=== PATIENT | male | born 1940 | race Caucasian/White ===

== ENCOUNTER 2016-09-11 | Outpatient (CLI) | payer MEDICARE | END 2016-09-11 18:14 | disposition EMS.NT ==

== ENCOUNTER 2016-09-12 | Outpatient (CLI) | payer MEDICARE | END 2016-09-12 11:18 | disposition EMS.NT | DX: Z03.89 Encounter for observation for other suspected diseases and conditions ruled out (principal) ==

== ENCOUNTER 2016-11-03 | Outpatient (CLI) | payer MEDICARE | END 2016-11-03 20:01 | disposition EMS.NT ==

== ENCOUNTER 2019-05-15 11:19 | Outpatient (CLI) | payer MEDICARE | END 2019-05-15 11:20 | disposition EMS.NT | LOC: EMS 11:19 | PROVIDERS: ATTEND Surgery | DX: Z03.89 Encounter for observation for other suspected diseases and conditions ruled out (principal) ==

== ENCOUNTER 2019-09-28 09:19 | Outpatient (CLI) | payer MEDICARE | END 2019-09-28 09:20 | disposition EMS.NT | LOC: EMS 09:19 | PROVIDERS: ATTEND Surgery | DX: Z03.89 Encounter for observation for other suspected diseases and conditions ruled out (principal) ==

== ENCOUNTER 2020-02-02 13:25 | Emergency (ER) | payer MEDICARE ==
--- NOTE | 2020-02-02 14:01 | ED Physician Documentation ---
PD HPI Fall - Stated complaint Stated Complaint: GLF - Chief complaint Chief Complaint: General - History obtained from History obtained from: Patient, Caregiver - History of Present Illness Mechanism of injury: Unknown Fall distance: Standing position (The patient does not really remember how he fell. He does not recall being lightheaded or having any pains but does recall ending up on the ground. He felt that he more was weak and slumped to the ground. He was found by his caregiver to be on the floor and was not sure how long he had been there. He does have history of poor memory with some dementia. He did not have any focal weaknesses. No areas of pain or tenderness. He seemed to be at his baseline dementia. The caregiver was concerned however and was also having difficulty lifting him back up. EMS was called and helped him back up and also convinced him to come in for evaluation.) Where injury occurred: Home (The patient is not sure the duration use on the ground. He stated he was getting out of bed and walking and felt weak and slumped to the floor. His caregiver found him on the floor. He has poor memory with some dementia so unclear the duration he was on the floor. He denies any focal injuries.) Timing - onset: Today Injury(ies) location: No: Head, Neck, Chest, Abdomen Associated symptoms: Weakness (generalized). No: LOC, AMS, Paresthesias Worsens with: No: Palpation Contributing factors: No: Anticoagulated, Intoxicated Similar symptoms before: Has not had sx before Review of Systems Constitutional: denies: Fever, Chills Nose: denies: Rhinorrhea / runny nose, Congestion Throat: denies: Sore throat Respiratory: denies: Cough GI: denies: Abdominal Pain, Nausea, Vomiting, Diarrhea : denies: Dysuria Skin: denies: Rash Neurologic: reports: Generalized weakness (intermittently for past few weeks; improved walking with walker.). denies: Focal weakness, Numbness, Near syncope PD PAST MEDICAL HISTORY - Past Medical History Cardiovascular: Hypertension Respiratory: None Neuro: Dementia Endocrine/Autoimmune: None - Allergies Allergies/Adverse Reactions: Allergies Allergy/AdvReac Type Severity Reaction Status Date / Time No Known Drug Allergies Allergy Verified 02/02/20 13:35 - Living Situation Living Situation: reports: With family (daughter who is primary caregiver) Living Arrangement: reports: At home - Social History Does the pt smoke?: No Does the pt drink ETOH?: No Does the pt have substance abuse?: No PD ED PE NORMAL - Vitals Vital signs reviewed: Yes - General General: Alert and oriented X 3 (but poor recall of past days), No acute distress, Well developed/nourished - HEENT HEENT: Moist mucous membranes, Pharynx benign - Neck Neck: Supple, no meningeal sign - Cardiac Cardiac: RRR, No murmur - Respiratory Respiratory: Clear bilaterally - Back Back: No CVA TTP - Derm Derm: Normal color, Warm and dry - Extremities Extremities: No tenderness to palpate, Normal ROM s pain, No calf tenderness / cord, Other (1+ edema in legs) - Neuro Neuro: Alert and oriented X 3, No motor deficit, No sensory deficit, Normal speech Results - Vitals Vitals: Vital Signs - 24 hr 02/02/20 02/02/20 13:35 16:00 Temperature 37 C Heart Rate 93 88 Respiratory 16 18 Rate Blood Pressure 141/89 H 140/102 H O2 Saturation 100 98 Oxygen O2 Source Room air - EKG (time done) 14:36 Rate: Rate (enter#) (89) Rhythm: NSR [place]: Normal Intervals: Normal [place] QRS: Normal Ischemia: Normal ST segments. No: ST elevation c/w ischemia, ST depression - Labs Labs: Laboratory Tests 02/02/20 02/02/20 02/02/20 14:45 14:45 14:45 WBC 14.0 H RBC 4.42 L Hgb 14.6 Hct 43.3 MCV 98.0 H MCH 33.0 H MCHC 33.7 RDW 13.5 Plt Count 219 MPV 9.5 Neut # (Auto) 10.9 H Lymph # (Auto) 1.7 [place] # (Auto) 1.2 H Eos # (Auto) 0.0 Baso # (Auto) 0.0 Absolute Nucleated RBC 0.00 Nucleated RBC % 0.0 Sodium 137 Potassium 4.2 Chloride 102 Carbon Dioxide 24 Anion Gap 11.0 BUN 24 H Creatinine 1.5 H Estimated GFR (MDRD) 45 L Glucose 152 H Calcium 9.1 Magnesium 2.3 Total Bilirubin 1.3 H AST 51 H ALT 52 Alkaline Phosphatase 34 L Total Creatine Kinase 75 Troponin I High Sens B-Natriuretic Peptide 29 Total Protein 8.0 Albumin 4.0 Globulin 4.0 Albumin/Globulin Ratio 1.0 Lipase 32 Ethyl Alcohol < 5.0 02/02/20 14:45 WBC RBC Hgb Hct MCV MCH MCHC RDW Plt Count MPV Neut # (Auto) Lymph # (Auto) [place] # (Auto) Eos # (Auto) Baso # (Auto) Absolute Nucleated RBC Nucleated RBC % Sodium Potassium Chloride Carbon Dioxide Anion Gap BUN Creatinine Estimated GFR (MDRD) Glucose Calcium Magnesium Total Bilirubin AST ALT Alkaline Phosphatase Total Creatine Kinase Troponin I High Sens 9.2 B-Natriuretic Peptide Total Protein Albumin Globulin Albumin/Globulin Ratio Lipase Ethyl Alcohol - Rads (name of study) head CT Radiology: Prelim report reviewed, See rad report chst xray Radiology: Prelim report reviewed, See rad report Departure - Departure Disposition: 01 Home, Self Care Clinical Impression: General weakness Condition: Stable Record reviewed to determine appropriate education?: Yes Instructions: ED Weakness UKO Comments: There is no obvious significant abnormality found. Not clear the cause of his general weakness. Be sure to have good nutrition and adequate hydration. Continue usual medications.
--- NOTE | 2020-02-02 14:51 | XRAY Report ---
Reason: chest pain Procedure Date: 02/02/2020 Accession Number: [id number] / [id number] Procedure: XR - Chest 1 View X-Ray CPT Code: 32750 Final Report FULL RESULT: PROCEDURE: Chest 1 View X-Ray INDICATIONS: chest pain TECHNIQUE: One view of the chest was acquired. COMPARISON: None FINDINGS: Surgical changes and devices: A catheter projects over the right chest, possibly representing a SWIMMING INSTRUCTOR shunt catheter. Lungs and pleura: No pleural effusions or pneumothorax. Lungs are clear. Mediastinum: Mediastinal contours appear normal. Heart size is normal. Bones and chest wall: No suspicious bony lesions. Overlying soft tissues appear unremarkable. IMPRESSION: No acute process. Reviewed by: Xenia Alvarado MD on 02/02/2020 2:46 PM PDT Approved by: Xenia Alvarado MD on 02/02/2020 2:46 PM PDT Station ID: [id number]
[2020-02-02 14:52] LABS: BASOPHILS % (AUTO) 0.2 %; EOSINOPHILS % (AUTO) 0.1 %; HGB - HEMOGLOBIN 14.6 g/dL (14.0-18.0); LYMPHOCYTES # (AUTO) 1.7 10^3/uL (1.5-3.5); LYMPHOCYTES % (AUTO) 12.4 %; MEAN CORPUSCULAR HGB CONC 33.7 g/dL (32.0-36.0); MEAN PLATELET VOLUME 9.5 fL (7.4-11.4); MONOCYTES # (AUTO) 1.2 10^3/uL (0.0-1.0); MONOCYTES % (AUTO) 8.7 %; NEUTROPHILS # (AUTO) 10.9 10^3/uL (1.5-6.6); NEUTROPHILS % (AUTO) 77.9 %; PLT - PLATELET COUNT 219 10^3/uL (130-450); RED BLOOD COUNT 4.42 10^6/uL (4.70-6.10); RED CELL DISTRIBUTION WIDTH 13.5 % (12.0-15.0)
[2020-02-02 15:05] LABS: ALKALINE PHOSPHATASE 34 IU/L (42-121); ALT ALANINE AMINOTRANSFERASE 52 IU/L (10-60); AST ASPARTATE AMINOTRANSFERASE 51 IU/L (10-42); BILIRUBIN,TOTAL 1.3 mg/dL (0.2-1.0); BUN - BLOOD UREA NITROGEN 24 mg/dL (6-20); CALCIUM 9.1 mg/dL (8.5-10.3); CARBON DIOXIDE - CO2 24 mmol/L (21-32); CHLORIDE 102 mmol/L (101-111); CK- CREATINE KINASE 75 IU/L (22-269); CREATININE 1.5 mg/dL (0.6-1.2); GLUCOSE 152 mg/dL (70-100); LIPASE 32 U/L (22-51); MAGNESIUM 2.3 mg/dL (1.7-2.8); SODIUM 137 mmol/L (135-145)
--- NOTE | 2020-02-02 15:21 | CT Report ---
Reason: fall with unknown LOC Procedure Date: 02/02/2020 Accession Number: [id number] / [id number] Procedure: CT - HEAD WO CPT Code: Final Report FULL RESULT: PROCEDURE: HEAD WO INDICATIONS: fall with unknown LOC TECHNIQUE: Noncontrast 4.5 mm thick angled axial sections acquired from the foramen magnum to the vertex. For radiation dose reduction, the following was used: automated exposure control, adjustment of mA and/or kV according to patient size. COMPARISON: None. FINDINGS: Image quality: Excellent. CSF spaces: Basal cisterns are patent. No extra-axial fluid collections. Ventricles are mildly prominent in size and shape, symmetric, in this patient with a ventriculostomy catheter extending from the posterior right parietal region to the anterior midline on the right, within the medial border of the frontal horn of the right lateral ventricle.. Brain: No midline shift. No intracranial masses or hemorrhage. Sanchez-white matter interface is abnormal over the frontal lobes bilaterally, and extending posteriorly into the parietal lobes, in a pattern suggestive of potential for prior traumatic brain injury. No recent trauma is found involving the brain parenchyma. Skull and face: Calvarium and visualized facial bones are intact, without suspicious lesions. Sinuses: Visualized sinuses and mastoids are clear. IMPRESSION: Ventriculostomy catheter from right-sided approach extends in normal position, without evidence of hydrocephalus or intracranial hemorrhage. There is encephalomalacia involving the frontal lobes bilaterally and extending tapering posteriorly into the parietal lobes bilaterally, symmetric, in a pattern most likely to represent prior traumatic brain injury but also potentially a manifestation of prior anoxic injury. No acute disease is found. Reviewed by: Biju Okeefe MD on 02/02/2020 3:17 PM PDT Approved by: Biju Okeefe MD on 02/02/2020 3:17 PM PDT Station ID: [id number]
[2020-02-02 17:06] LABS: BILIRUBIN,URINE NEGATIVE (NEGATIVE); GLUCOSE, URINE (UA) NEGATIVE (NEGATIVE); KETONES,URINE (UA) NEGATIVE (NEGATIVE); LEUKOCYTE ESTERASE, URINE NEGATIVE (NEGATIVE); NITRITE,URINE NEGATIVE (NEGATIVE); OCCULT BLOOD,URINE TRACE-INTA (NEGATIVE); PH,URINE 5.5 PH (5.0-7.5); PROTEIN,URINE NEGATIVE (NEGATIVE); UROBILINOGEN,URINE 0.2 (NORMAL) E.U./dL (NORMAL)
[2020-02-02 17:08] LABS: CLARITY,URINE CLEAR (CLEAR)
[2020-02-02 17:18] VITALS: BP 137/61
== END 2020-02-02 17:28 | disposition home or self-care (01) ==
LOC: ED 13:25
DX: R53.1 Weakness (principal); Z91.81 History of falling; I10 Essential (primary) hypertension; F03.90 Unspecified dementia, unspecified severity, without behavioral disturbance, psychotic disturbance, mood disturbance, and anxiety
CPT/HCPCS: 36415; 51701; 70450; 71045; 80053; 80320; 81001; 81003; 82550; 83690; 83735; 83880; 84484; 85025; 87086; 93005; 99284

== ENCOUNTER 2020-07-29 13:18 | Outpatient (CLI) | payer MEDICARE, OTHER | END 2020-07-29 13:19 | disposition short-term general hospital (02) | LOC: EMS 13:18 | PROVIDERS: ATTEND Surgery | DX: R53.1 Weakness (principal); R63.0 Anorexia | CPT/HCPCS: A0425; A0429 ==

== ENCOUNTER 2020-12-01 17:18 | Outpatient (CLI) | payer MEDICARE, OTHER ==
--- OUTSIDE RECORDS SUMMARY | 2020-12-08 00:48 | EXTERNAL MEDICAL SUMMARY RPT | Continuity of Care Document ---
:1940 Demographics Phone Unavailable Preferred Language Unknown Marital Status Unknown Amish Affiliation Unknown Race Unknown Ethnic Group Unknown Author Organization [facility] Address [address] [id number] Phone Social History date description facility [phone]
== END 2020-12-01 17:19 | disposition critical access hospital (66) ==
LOC: EMS 17:18
PROVIDERS: ATTEND Emergency Medicine
DX: R41.0 Disorientation, unspecified (principal)
CPT/HCPCS: A0425; A0429

== ENCOUNTER 2020-12-01 17:46 | Emergency (ER) | payer MEDICARE, OTHER ==
--- NOTE | 2020-12-01 18:34 | ED Physician Documentation ---
PD HPI MALE - Stated complaint Stated Complaint: MALE - Chief complaint Chief Complaint: UTI - History obtained from History obtained from: Patient - Additional information Additional information: Reportedly has foul-smelling urine and worse than normal mental status. No reported fevers. History is limited because of dementia. Review of Systems Unable to obtain: Confused, Dementia PD PAST MEDICAL HISTORY - Past Medical History Past Medical History: Yes Cardiovascular: Hypertension Respiratory: None Neuro: Dementia Endocrine/Autoimmune: None : None HEENT: None Psych: None Musculoskeletal: None Derm: None - Past Surgical History Past Surgical History: No - Allergies Allergies/Adverse Reactions: Allergies Allergy/AdvReac Type Severity Reaction Status Date / Time No Known Drug Allergies Allergy Verified 02/02/20 13:35 - Social History Does the pt smoke?: No Smoking Status: Never smoker Does the pt drink ETOH?: No Does the pt have substance abuse?: No - Immunizations Immunizations are current?: Yes - POLST Patient has POLST: No PD ED PE NORMAL - Vitals Vital signs reviewed: Yes - General General: Other (Is alert and oriented to person and knows he is in the hospital but not why. Does not know his age or the date.) - HEENT HEENT: PERRL, EOMI - Neck Neck: Supple, no meningeal sign, No bony TTP - Cardiac Cardiac: RRR, No murmur - Respiratory Respiratory: No respiratory distress, Clear bilaterally - Abdomen Abdomen: Soft, Non tender - Derm Derm: Normal color, Warm and dry - Extremities Extremities: No edema, No calf tenderness / cord - Neuro Neuro: No motor deficit, No sensory deficit Results - Vitals Vitals: Vital Signs - 24 hr 12/01/20 17:52 Temperature 36.8 C Heart Rate 92 Respiratory 17 Rate Blood Pressure 152/84 H O2 Saturation 99 Oxygen O2 Source Room air - Labs Labs: Laboratory Tests 12/01/20 12/01/20 12/01/20 18:34 18:34 18:34 WBC 8.4 RBC 4.43 L Hgb 14.3 Hct 43.2 MCV 97.5 H MCH 32.3 H MCHC 33.1 RDW 13.9 Plt Count 221 MPV 9.8 Neut # (Auto) 6.0 Lymph # (Auto) 1.7 [place] # (Auto) 0.5 Eos # (Auto) 0.1 Baso # (Auto) 0.0 Absolute Nucleated RBC 0.00 Nucleated RBC % 0.0 Sodium 140 Potassium 4.2 Chloride 103 Carbon Dioxide 28 Anion Gap 9.0 BUN 22 H Creatinine 1.3 H Estimated GFR (MDRD) 53 L Glucose 151 H Lactic Acid 1.6 Calcium 9.7 Total Bilirubin 0.8 AST 32 ALT 28 Alkaline Phosphatase 40 L Total Protein 7.2 Albumin 3.7 Globulin 3.5 Albumin/Globulin Ratio 1.1 Urine Color Urine Clarity Urine pH Ur Specific [place] Urine Protein Urine Glucose (UA) Urine Ketones Urine Occult Blood Urine Nitrite Urine Bilirubin Urine Urobilinogen Ur Leukocyte Esterase Urine RBC Urine WBC Ur Squamous Epith Cells Urine Bacteria Ur Microscopic Review Urine Culture Comments 12/01/20 20:53 WBC RBC Hgb Hct MCV MCH MCHC RDW Plt Count MPV Neut # (Auto) Lymph # (Auto) [place] # (Auto) Eos # (Auto) Baso # (Auto) Absolute Nucleated RBC Nucleated RBC % Sodium Potassium Chloride Carbon Dioxide Anion Gap BUN Creatinine Estimated GFR (MDRD) Glucose Lactic Acid Calcium Total Bilirubin AST ALT Alkaline Phosphatase Total Protein Albumin Globulin Albumin/Globulin Ratio Urine Color YELLOW Urine Clarity CLEAR Urine pH 6.0 Ur Specific [place] 1.015 Urine Protein NEGATIVE Urine Glucose (UA) NEGATIVE Urine Ketones NEGATIVE Urine Occult Blood NEGATIVE Urine Nitrite NEGATIVE Urine Bilirubin NEGATIVE Urine Urobilinogen 0.2 (NORMAL) Ur Leukocyte Esterase TRACE H Urine RBC 0-5 Urine WBC 0-3 Ur Squamous Epith Cells FEW Squamous Urine Bacteria None Seen Ur Microscopic Review INDICATED Urine Culture Comments INDICATED PD MEDICAL DECISION MAKING - ED course ED course: 80-year-old gentleman presents with worse than normal mental status. He is cooperative here without focal neurologic deficit. There is a specific concern for UTI. Urinalysis positive only for trace leukocyte esterase and this is not consistent with UTI especially with a lack of other specific symptoms for same. I spoke with his daughter by phone and she feels comfortable picking him up and taking him home. Departure - Departure Disposition: 01 Home, Self Care Clinical Impression: General weakness Instructions: ED Dementia Alzheimer, ED Dementia Caregiver Support Comments: No evidence of UTI today., Blood work is unremarkable as well. Return if worsening or if he runs a fever. Encourage oral fluid intake.
[2020-12-01 18:44] LABS: BASOPHILS % (AUTO) 0.1 %; EOSINOPHILS # (AUTO) 0.1 10^3/uL (0.0-0.7); EOSINOPHILS % (AUTO) 0.8 %; HCT - HEMATOCRIT 43.2 % (42.0-52.0); HGB - HEMOGLOBIN 14.3 g/dL (14.0-18.0); LYMPHOCYTES # (AUTO) 1.7 10^3/uL (1.5-3.5); LYMPHOCYTES % (AUTO) 20.3 %; MEAN CORPUSCULAR HEMOGLOBIN 32.3 pg (27.0-31.0); MEAN CORPUSCULAR HGB CONC 33.1 g/dL (32.0-36.0); MEAN CORPUSCULAR VOLUME 97.5 fL (80.0-94.0); MEAN PLATELET VOLUME 9.8 fL (7.4-11.4); MONOCYTES # (AUTO) 0.5 10^3/uL (0.0-1.0); MONOCYTES % (AUTO) 6.4 %; PLT - PLATELET COUNT 221 10^3/uL (130-450); RED BLOOD COUNT 4.43 10^6/uL (4.70-6.10); RED CELL DISTRIBUTION WIDTH 13.9 % (12.0-15.0); WHITE BLOOD COUNT 8.4 x10^3/uL (4.8-10.8)
[2020-12-01 18:51] LABS: ALBUMIN 3.7 g/dL (3.2-5.5); ALBUMIN/GLOBULIN RATIO 1.1 (1.0-2.2); BILIRUBIN,TOTAL 0.8 mg/dL (0.2-1.0); CALCIUM 9.7 mg/dL (8.5-10.3); CREATININE 1.3 mg/dL (0.6-1.2); POTASSIUM 4.2 mmol/L (3.5-5.0); TOTAL PROTEIN 7.2 g/dL (6.7-8.2)
[2020-12-01 21:27] LABS: BILIRUBIN,URINE NEGATIVE (NEGATIVE); GLUCOSE, URINE (UA) NEGATIVE (NEGATIVE); KETONES,URINE (UA) NEGATIVE (NEGATIVE); LEUKOCYTE ESTERASE, URINE TRACE (NEGATIVE); NITRITE,URINE NEGATIVE (NEGATIVE); OCCULT BLOOD,URINE NEGATIVE (NEGATIVE); PROTEIN,URINE NEGATIVE (NEGATIVE); UROBILINOGEN,URINE 0.2 (NORMAL) E.U./dL (NORMAL)
[2020-12-01 21:29] LABS: CLARITY,URINE CLEAR (CLEAR)
[2020-12-01 21:34] LABS: RBC,URINE 0-5 /HPF (0-5); SQUAMOUS EPITHELIAL CELL,UR FEW Squamous (<= Few); WBC,URINE 0-3 /HPF (0-3)
[2020-12-01 21:35] LABS: BACTERIA,URINE None Seen /HPF (None Seen)
[2020-12-01 22:37] VITALS: BP 148/80
--- OUTSIDE RECORDS SUMMARY | 2020-12-08 00:14 | EXTERNAL MEDICAL SUMMARY RPT | Continuity of Care Document ---
:1940 Demographics Phone Unavailable Preferred Language Unknown Marital Status Unknown Judaism Affiliation Unknown Race Unknown Ethnic Group Unknown Author Organization [facility] Address [address] [id number] Phone Social History date description facility [phone]
== END 2020-12-01 22:37 | disposition home or self-care (01) ==
LOC: EDUNIT# → EDBD → ED 17:46 → SUPCPDRO 17:46 → ED 22:37
DX: R53.1 Weakness (principal); F03.90 Unspecified dementia, unspecified severity, without behavioral disturbance, psychotic disturbance, mood disturbance, and anxiety; R82.998 Other abnormal findings in urine; I10 Essential (primary) hypertension
CPT/HCPCS: 36415; 51701; 80053; 81001; 81003; 83605; 85025; 87086; 99282; 99283

== ENCOUNTER 2021-01-03 22:19 | Outpatient (CLI) | payer MEDICARE, OTHER | END 2021-01-03 22:20 | disposition critical access hospital (66) | LOC: EMS 22:19 | DX: R53.1 Weakness (principal); R46.4 Slowness and poor responsiveness | CPT/HCPCS: A0425; A0429 ==

== ENCOUNTER 2021-01-03 22:43 | Emergency (ER) | payer MEDICARE, OTHER ==
[2021-01-03] MEDS ORDERED: SODIUM CHLORIDE 0.9% 1,000 ML IV STA ×2 (22:59→23:55)
--- NOTE | 2021-01-03 23:02 | ED Physician Documentation ---
PD HPI ALTERED MENTAL STATUS - Stated complaint Stated Complaint: LETHARGIC - Chief complaint Chief Complaint: Neuro - History obtained from History obtained from: Patient, Family, EMS - History of Present Illness Timing - onset: Today Timing - duration: Days (1) Timing - details: Gradual onset (daughter, who is his caregiver, noted him to be sleepier and somewhat more confused than usual today. Called EMS. He seems alert to EMS and on arrival here. He denies any pains, fevers, nausea.), Waxing and waning Associated symptoms: NVD (reported less appetite the past few days, per EMS.), Urinary sx (daughter says his urine had strong odor.). 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 Similar symptoms before: Diagnosis (per EMS, patient has had similar with infections/UTIs.) Recently seen: Not recently seen Review of Systems Unable to obtain: Dementia, Other Constitutional: denies: Fever Nose: denies: Rhinorrhea / runny nose, Congestion Throat: denies: Sore throat Cardiac: denies: Chest pain / pressure, Pedal edema Respiratory: denies: Cough GI: denies: Abdominal Pain, Vomiting, Diarrhea Neurologic: denies: Focal weakness, Numbness, Syncope, Headache PD PAST MEDICAL HISTORY - Past Medical History Cardiovascular: Hypertension Respiratory: None Neuro: Dementia Endocrine/Autoimmune: None : None HEENT: None Psych: None Musculoskeletal: None Derm: None - Past Surgical History Past Surgical History: No - Present Medications Home Medications: Ambulatory Orders Medication Instructions Recorded Confirmed Atorvastatin Calcium 40 mg PO DAILY 01/04/21 01/04/21 - Allergies Allergies/Adverse Reactions: Allergies Allergy/AdvReac Type Severity Reaction Status Date / Time No Known Drug Allergies Allergy Verified 01/03/21 23:00 - Social History Does the pt smoke?: No Smoking Status: Never smoker Does the pt drink ETOH?: No Does the pt have substance abuse?: No - Immunizations Immunizations are current?: Yes - POLST Patient has POLST: No PD ED PE NORMAL - Vitals Vital signs reviewed: Yes - General General: No acute distress, Well developed/nourished. No: Alert and oriented X 3 (oriented to person, , and place. does not know month/time of year.) - HEENT HEENT: Atraumatic (no tenderness. Has palpable ventriculostomy drain tube with reservoir right parietal, with easily compressed reservoid that refills promptly. ), Pharynx benign - Neck Neck: Supple, no meningeal sign, No adenopathy, No JVD - Cardiac Cardiac: RRR, No murmur - Respiratory Respiratory: Clear bilaterally - Abdomen Abdomen: Normal bowel sounds, Soft, Non tender, Non distended - Back Back: No CVA TTP - Derm Derm: Normal color, Warm and dry - Extremities Extremities: No edema, No calf tenderness / cord - Neuro Neuro: No motor deficit, No sensory deficit, Normal speech Eye Opening: Spontaneous Motor: Obeys Commands Verbal: Oriented (to person and place.) GCS Score: 15 Results - Vitals Vitals: Vital Signs - 24 hr 01/03/21 01/04/21 01/04/21 22:50 01:00 02:39 Temperature 36.4 C L 37.0 C Heart Rate 90 87 91 Respiratory 20 18 16 Rate Blood Pressure 97/64 139/91 H 129/64 O2 Saturation 95 98 100 Oxygen O2 Source Room air - Labs Labs: Laboratory Tests 01/03/21 01/03/21 01/03/21 23:18 23:24 23:24 WBC 10.4 RBC 4.75 Hgb 15.3 Hct 46.2 MCV 97.3 H MCH 32.2 H MCHC 33.1 RDW 14.3 Plt Count 246 MPV 9.9 Neut # (Auto) 7.9 H Lymph # (Auto) 1.8 [place] # (Auto) 0.6 Eos # (Auto) 0.1 Baso # (Auto) 0.0 Absolute Nucleated RBC 0.00 Nucleated RBC % 0.0 VBG pH VBG pCO2 VBG pO2 VBG HCO3 VBG Total CO2 VBG O2 Saturation VBG Base Excess Sodium 139 Potassium 4.2 Chloride 103 Carbon Dioxide 24 Anion Gap 12.0 BUN 17 Creatinine 1.4 H Estimated GFR (MDRD) 49 L Glucose 175 H Lactic Acid Calcium 9.3 Magnesium 2.5 Total Bilirubin 1.1 H AST 34 ALT 27 Alkaline Phosphatase 39 L Troponin I High Sens Total Protein 7.7 Albumin 4.1 Globulin 3.6 Albumin/Globulin Ratio 1.1 Lipase 31 Urine Color YELLOW Urine Clarity CLEAR Urine pH 5.5 Ur Specific [place] 1.015 Urine Protein NEGATIVE Urine Glucose (UA) NEGATIVE Urine Ketones NEGATIVE Urine Occult Blood TRACE-INTA Urine Nitrite NEGATIVE Urine Bilirubin NEGATIVE Urine Urobilinogen 0.2 (NORMAL) Ur Leukocyte Esterase NEGATIVE Ur Microscopic Review NOT INDICATED Urine Culture Comments NOT INDICATED 01/03/21 01/03/21 01/04/21 23:24 23:24 00:09 WBC RBC Hgb Hct MCV MCH MCHC RDW Plt Count MPV Neut # (Auto) Lymph # (Auto) [place] # (Auto) Eos # (Auto) Baso # (Auto) Absolute Nucleated RBC Nucleated RBC % VBG pH 7.308 L VBG pCO2 42.2 VBG pO2 41.5 VBG HCO3 20.7 L VBG Total CO2 22.0 L VBG O2 Saturation 75.7 VBG Base Excess -5.4 L Sodium Potassium Chloride Carbon Dioxide Anion Gap BUN Creatinine Estimated GFR (MDRD) Glucose Lactic Acid 4.9 H* Calcium Magnesium Total Bilirubin AST ALT Alkaline Phosphatase Troponin I High Sens 10.1 Total Protein Albumin Globulin Albumin/Globulin Ratio Lipase Urine Color Urine Clarity Urine pH Ur Specific [place] Urine Protein Urine Glucose (UA) Urine Ketones Urine Occult Blood Urine Nitrite Urine Bilirubin Urine Urobilinogen Ur Leukocyte Esterase Ur Microscopic Review Urine Culture Comments 01/04/21 01:15 WBC RBC Hgb Hct MCV MCH MCHC RDW Plt Count MPV Neut # (Auto) Lymph # (Auto) [place] # (Auto) Eos # (Auto) Baso # (Auto) Absolute Nucleated RBC Nucleated RBC % VBG pH VBG pCO2 VBG pO2 VBG HCO3 VBG Total CO2 VBG O2 Saturation VBG Base Excess Sodium Potassium Chloride Carbon Dioxide Anion Gap BUN Creatinine Estimated GFR (MDRD) Glucose Lactic Acid 2.0 Calcium Magnesium Total Bilirubin AST ALT Alkaline Phosphatase Troponin I High Sens Total Protein Albumin Globulin Albumin/Globulin Ratio Lipase Urine Color Urine Clarity Urine pH Ur Specific [place] Urine Protein Urine Glucose (UA) Urine Ketones Urine Occult Blood Urine Nitrite Urine Bilirubin Urine Urobilinogen Ur Leukocyte Esterase Ur Microscopic Review Urine Culture Comments - Rads (name of study) head CT Radiology: Prelim report reviewed (no acute process. 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 Encephalomalacia noted. ), See rad report PD MEDICAL DECISION MAKING - ED course Complexity details: considered differential (he aplears well here without acute abnormality, signs of infection. Initial Lactate elevated and BP softly low, but improved with IV fluids, suggesting dehydration with less PO intake recently. No apparent infections. ), d/w patient Departure - Departure Disposition: 01 Home, Self Care Clinical Impression: Dehydration Altered mental status Qualifiers: Altered mental status type: transient alteration of awareness Qualified C ode(s): R40.4 - Transient alteration of awareness Condition: Stable Record reviewed to determine appropriate education?: Yes Comments: Testing of the urine and blood count chest x-ray and head scan did not show any acute obvious process. He did seem perhaps dehydrated and was given IV fluids. Otherwise he appears okay here without any acute obvious process. Stay well-hydrated. Follow-up with your primary care or return to the ER as needed. Discharge Date/Time: 01/04/21 03:30
[2021-01-03 23:24] LABS: BILIRUBIN,URINE NEGATIVE (NEGATIVE); CLARITY,URINE CLEAR (CLEAR); GLUCOSE, URINE (UA) NEGATIVE (NEGATIVE); KETONES,URINE (UA) NEGATIVE (NEGATIVE); LEUKOCYTE ESTERASE, URINE NEGATIVE (NEGATIVE); NITRITE,URINE NEGATIVE (NEGATIVE); OCCULT BLOOD,URINE TRACE-INTA (NEGATIVE); PH,URINE 5.5 PH (5.0-7.5); PROTEIN,URINE NEGATIVE (NEGATIVE); UROBILINOGEN,URINE 0.2 (NORMAL) E.U./dL (NORMAL)
[2021-01-03 23:28] LABS: BASOPHILS % (AUTO) 0.1 %; EOSINOPHILS # (AUTO) 0.1 10^3/uL (0.0-0.7); EOSINOPHILS % (AUTO) 0.8 %; HCT - HEMATOCRIT 46.2 % (42.0-52.0); HGB - HEMOGLOBIN 15.3 g/dL (14.0-18.0); LYMPHOCYTES # (AUTO) 1.8 10^3/uL (1.5-3.5); MEAN CORPUSCULAR HEMOGLOBIN 32.2 pg (27.0-31.0); MEAN CORPUSCULAR HGB CONC 33.1 g/dL (32.0-36.0); MEAN CORPUSCULAR VOLUME 97.3 fL (80.0-94.0); MEAN PLATELET VOLUME 9.9 fL (7.4-11.4); MONOCYTES # (AUTO) 0.6 10^3/uL (0.0-1.0); MONOCYTES % (AUTO) 5.4 %; NEUTROPHILS # (AUTO) 7.9 10^3/uL (1.5-6.6); NEUTROPHILS % (AUTO) 76.3 %; PLT - PLATELET COUNT 246 10^3/uL (130-450); RED BLOOD COUNT 4.75 10^6/uL (4.70-6.10); RED CELL DISTRIBUTION WIDTH 14.3 % (12.0-15.0); WHITE BLOOD COUNT 10.4 x10^3/uL (4.8-10.8)
[2021-01-03 23:41] LABS: ALBUMIN 4.1 g/dL (3.2-5.5); ALBUMIN/GLOBULIN RATIO 1.1 (1.0-2.2); BILIRUBIN,TOTAL 1.1 mg/dL (0.2-1.0); CALCIUM 9.3 mg/dL (8.5-10.3); CREATININE 1.4 mg/dL (0.6-1.2); MAGNESIUM 2.5 mg/dL (1.7-2.8); POTASSIUM 4.2 mmol/L (3.5-5.0); TOTAL PROTEIN 7.7 g/dL (6.7-8.2)
[2021-01-04 00:26] LABS: VBG BASE EXCESS -5.4 mmol/L (-2 - +2); VBG HCO3 20.7 mmol/L (23-28); VBG OXYGEN SATURATION 75.7 % (60-80); VBG PCO2 42.2 mmHg (41-51); VBG PH 7.308 (7.31-7.41); VBG PO2 41.5 mmHg (25-47)
[2021-01-04 02:40] VITALS: BP 129/64
--- NOTE | 2021-01-04 07:04 | CT Report ---
PROCEDURE: HEAD WO INDICATIONS: reported lethargic by daughter; h/o shunt TECHNIQUE: Noncontrast 4.5 mm thick angled axial sections acquired from the foramen magnum to the vertex. For r adiation dose reduction, the following was used: automated exposure control, adjustment of mA and/or kV according to patient size. COMPARISON: 09/2019 FINDINGS: Image quality: Excellent. CSF spaces: Basal cisterns are patent. No extra-axial fluid collections. The ventricles are symmet joselito in size and shape. Brain: Ventriculostomy tube which projects to the anterior horn of the right lateral ventricle via r ight parietal approach is stable compared to prior exam. No intracranial bleeds or masses. There is mild to moderate cerebral volume loss for age, with resultant ventricular and sulcal prominence. The re are severe periventricular and deep white matter chronic small vessel ischemic changes. There is intracranial internal carotid artery atherosclerosis. Skull and face: Frontal nelly holes are stable. The Visualized facial bones appear intact, without bolivar picious lesions. Sinuses: Visualized sinuses and mastoids are clear. IMPRESSION: No acute intracranial disease process. Reviewed by: Lakshmi Thorpe MD, PhD on 01/04/2021 7:03 AM PDT Approved by: Lakshmi Thorpe MD, PhD on 01/04/2021 7:03 AM PDT Station ID: [id number]
--- NOTE | 2021-01-04 10:04 | XRAY Report ---
PROCEDURE: Chest 1 View X-Ray INDICATIONS: decreased alertness today TECHNIQUE: One view of the chest was acquired. COMPARISON: Chest x-ray 02/02/2020 FINDINGS: Surgical changes and devices: Tubing is noted overlying the right neck and hemithorax which appears i ntact and most suggestive of ventriculoperitoneal shunt. Lungs and pleura: No pleural effusions or pneumothorax. Lungs are clear. Mediastinum: Mediastinal contours appear normal. Heart size is normal. Bones and chest wall: No suspicious bony lesions. Overlying soft tissues appear unremarkable. IMPRESSION: No acute pulmonary process. The above findings are concordant with preliminary report. Reviewed by: Geneva Lim MD on 01/04/2021 10:03 AM PDT Approved by: Geneva Lim MD on 01/04/2021 10:03 AM PDT Station ID: [id number]
== END 2021-01-04 03:30 | disposition home or self-care (01) ==
LOC: EDUNIT# → ED 22:43
DX: E86.0 Dehydration (principal); R40.4 Transient alteration of awareness; F03.90 Unspecified dementia, unspecified severity, without behavioral disturbance, psychotic disturbance, mood disturbance, and anxiety; I10 Essential (primary) hypertension; Z96.89 Presence of other specified functional implants
CPT/HCPCS: 36415; 80053; 81001; 81003; 82803; 83605; 83690; 83735; 84484; 85025; 87086; 93005; 96360; 96361; 99284

== ENCOUNTER 2021-06-28 14:26 | Outpatient (CLI) | payer MEDICARE, OTHER | END 2021-06-28 14:27 | disposition critical access hospital (66) | LOC: EMS 14:26 | DX: K59.00 Constipation, unspecified (principal) | CPT/HCPCS: A0425; A0429 ==

== ENCOUNTER 2021-06-28 15:00 | Inpatient (IN) | payer MEDICARE, OTHER ==
--- NOTE | 2021-06-28 15:06 | ED Physician Documentation ---
PD HPI ABD PAIN - Stated complaint Stated Complaint: CONSTIPATION - History obtained from History obtained from: Patient, EMS - Additional information Additional information: 80-year-old gentleman presents from home with report of 3 days of no bowel movements. He is demented so history is limited.. Patient is unsure why he became constipated. States he has not taken a laxative. Not sure of the validity of that. Now the report about over the last 12 hours being unable to urinate. Patient denies abdominal or rectal pain. Review of Systems Unable to obtain: Dementia PD PAST MEDICAL HISTORY - Past Medical History Cardiovascular: Hypertension Respiratory: None Neuro: Dementia Endocrine/Autoimmune: None : None HEENT: None Psych: None Musculoskeletal: None Derm: None - Past Surgical History Past Surgical History: No - Present Medications Home Medications: Ambulatory Orders Medication Instructions Recorded Confirmed Atorvastatin [Lipitor] 40 mg PO DAILY 06/28/21 06/28/21 - Allergies Allergies/Adverse Reactions: Allergies Allergy/AdvReac Type Severity Reaction Status Date / Time No Known Drug Allergies Allergy Verified 06/28/21 15:08 - Social History Does the pt smoke?: No Smoking Status: Never smoker Does the pt drink ETOH?: No Does the pt have substance abuse?: No - Immunizations Immunizations are current?: Yes - POLST Patient has POLST: No PD ED PE NORMAL - Vitals Vital signs reviewed: Yes - General General: No acute distress, Other (He is oriented to person and place but not time or events) - HEENT HEENT: PERRL, EOMI - Neck Neck: Supple, no meningeal sign, No bony TTP - Cardiac Cardiac: No murmur (Frequent extrasystoles) - Respiratory Respiratory: No respiratory distress, Clear bilaterally - Abdomen Abdomen: Other (Distended nontender abdomen) - Rectal Rectal: Other (No fecal impaction) - Back Back: No CVA TTP, No spinal TTP - Derm Derm: Normal color, Warm and dry - Extremities Extremities: No edema, No calf tenderness / cord - Neuro Motor: Obeys Commands Verbal: Confused - Psych Psych: Normal mood, Normal affect Results - Vitals Vitals: Vital Signs - 24 hr 06/28/21 06/28/21 06/28/21 15:05 15:07 17:55 Temperature 36.5 C Heart Rate 105 H 104 H 107 H Respiratory 15 20 Rate Blood Pressure 111/63 163/88 H O2 Saturation 94 97 10/26/21 10/26/21 19:00 19:32 Temperature 36.9 C Heart Rate 88 Respiratory 15 16 Rate Blood Pressure 162/88 H O2 Saturation 94 Oxygen O2 Source Room air - EKG (time done) 1507 Rate: Rate (enter#) (94) Rhythm: NSR (Sinus rhythm with frequent PACs) [place]: Normal Intervals: Normal [place] QRS: Normal Ischemia: Normal ST segments - Labs Labs: Laboratory Tests 06/28/21 06/28/21 06/28/21 15:36 15:36 15:47 WBC 13.6 H RBC 4.18 L Hgb 13.8 L Hct 40.9 L MCV 97.8 H MCH 33.0 H MCHC 33.7 RDW 14.1 Plt Count 262 MPV 9.4 Neut # (Auto) 10.2 H Lymph # (Auto) 2.1 [place] # (Auto) 1.2 H Eos # (Auto) 0.0 Baso # (Auto) 0.0 Absolute Nucleated RBC 0.00 Nucleated RBC % 0.0 Sodium 134 L Potassium 3.6 Chloride 98 L Carbon Dioxide 23 Anion Gap 13.0 BUN 25 H Creatinine 1.0 Estimated GFR (MDRD) 72 L Glucose 164 H Calcium 9.1 Total Bilirubin 1.2 H AST 34 ALT 25 Alkaline Phosphatase 30 L Total Protein 7.4 Albumin 3.8 Globulin 3.6 Albumin/Globulin Ratio 1.1 Lipase 40 Urine Color YELLOW Urine Clarity CLEAR Urine pH 5.5 Ur Specific [place] >=1.030 H Urine Protein TRACE Urine Glucose (UA) NEGATIVE Urine Ketones NEGATIVE Urine Occult Blood NEGATIVE Urine Nitrite NEGATIVE Urine Bilirubin NEGATIVE Urine Urobilinogen 0.2 (NORMAL) Ur Leukocyte Esterase NEGATIVE Ur Microscopic Review NOT INDICATED Urine Culture Comments NOT INDICATED PD MEDICAL DECISION MAKING - ED course ED course: 80-year-old demented gentleman presents by ambulance for abdominal distention, constipation, and urinary retention. Initial most suspected differential would be fecal impaction but none was present on exam. He was quite distended as well and went over for CT showing a high-grade bowel obstruction related to a sigmoid volvulus, with concern for underlying neoplasm. I discussed the findings with the daughter by phone who felt like despite his severe dementia, his quality of life was still good and she would want him to have surgery and he would want to have surgery she thinks if there was potential for cure. Case discussed by phone with Dr. June Randle at 5:50 PM who will come and see the patient. Departure - Departure Disposition: ED Transfer to [facility] Clinical Impression: Volvulus of colon, Intestinal obstruction Condition: Serious
[2021-06-28] MEDS ORDERED: IOVERSOL 320 100 ML VIAL IVP ONE ×2 (15:42→19:29)
[2021-06-28 15:50] LABS: BASOPHILS % (AUTO) 0.1 %; EOSINOPHILS % (AUTO) 0.1 %; HCT - HEMATOCRIT 40.9 % (42.0-52.0); HGB - HEMOGLOBIN 13.8 g/dL (14.0-18.0); LYMPHOCYTES # (AUTO) 2.1 10^3/uL (1.5-3.5); LYMPHOCYTES % (AUTO) 15.4 %; MEAN CORPUSCULAR HGB CONC 33.7 g/dL (32.0-36.0); MEAN CORPUSCULAR VOLUME 97.8 fL (80.0-94.0); MEAN PLATELET VOLUME 9.4 fL (7.4-11.4); MONOCYTES # (AUTO) 1.2 10^3/uL (0.0-1.0); MONOCYTES % (AUTO) 8.7 %; NEUTROPHILS # (AUTO) 10.2 10^3/uL (1.5-6.6); NEUTROPHILS % (AUTO) 75.2 %; PLT - PLATELET COUNT 262 10^3/uL (130-450); RED BLOOD COUNT 4.18 10^6/uL (4.70-6.10); RED CELL DISTRIBUTION WIDTH 14.1 % (12.0-15.0); WHITE BLOOD COUNT 13.6 x10^3/uL (4.8-10.8)
[2021-06-28 16:04] LABS: ALBUMIN 3.8 g/dL (3.2-5.5); ALBUMIN/GLOBULIN RATIO 1.1 (1.0-2.2); BILIRUBIN,TOTAL 1.2 mg/dL (0.2-1.0); CALCIUM 9.1 mg/dL (8.5-10.3); POTASSIUM 3.6 mmol/L (3.5-5.0); TOTAL PROTEIN 7.4 g/dL (6.7-8.2)
[2021-06-28 16:10] LABS: BILIRUBIN,URINE NEGATIVE (NEGATIVE); CLARITY,URINE CLEAR (CLEAR); GLUCOSE, URINE (UA) NEGATIVE (NEGATIVE); KETONES,URINE (UA) NEGATIVE (NEGATIVE); LEUKOCYTE ESTERASE, URINE NEGATIVE (NEGATIVE); NITRITE,URINE NEGATIVE (NEGATIVE); OCCULT BLOOD,URINE NEGATIVE (NEGATIVE); PH,URINE 5.5 PH (5.0-7.5); PROTEIN,URINE TRACE mg/dL (NEGATIVE); UROBILINOGEN,URINE 0.2 (NORMAL) E.U./dL (NORMAL)
--- NOTE | 2021-06-28 17:51 | CT Report ---
PROCEDURE: Abdomen/Pelvis W INDICATIONS: IV only, abd pain CONTRAST: IV CONTRAST: Optiray 320 ml: 100 PO CONTRAST: *NO PO CONTRAST TECHNIQUE: After the administration of intravenous contrast, 5 mm thick sections acquired from the diaphragms to the symphysis. 5 mm thick coronal and sagittal reformats were acquired. For radiation dose reducti on, the following was used: automated exposure control, adjustment of mA and/or kV according to josué ent size. COMPARISON: None. FINDINGS: Image quality: Excellent. ABDOMEN: Lung bases: Atelectasis in the dependent portion of the lung bases. Heart size is normal. After stati c desiccation of the visualized coronary vasculature. Solid organs: Liver and spleen are normal in size and enhancement. Gallbladder is within normal espinal its Biliary system is non dilated. Pancreas enhances normally. No adrenal nodules. Kidneys demons trate normal size and enhancement, without hydronephrosis. Peritoneum and bowel: There is gaseous dilatation of the colon. Colon is dilated up to 12.4 cm. Trans ition point in the mid sigmoid colon where there is a swirled appearance of the mesentery and bowel c ompatible with sigmoid volvulus. Sequential wall thickening noted in the sigmoid colon distal to the point of volvulus which could be due to edema or neoplastic process. Stranding and nodularity noted i n the mesentery adjacent to the sigmoid colon at the level of cervical vertebral thickening which cou ld represent edema or neoplastic spread. No free fluid or air. Peritoneal shunt catheter noted in th e abdomen and pelvis. Nodes and vessels: No retroperitoneal or mesenteric adenopathy by size criteria. Aorta and inferior vena cava are normal in size. Scattered atherosclerotic calcifications are noted in the abdominal an d pelvic vasculature. Miscellaneous: No ventral hernias. PELVIS: Genitourinary: Bladder decompressed by Bañuelos catheter. Miscellaneous: No inguinal hernias or adenopathy. Bones: No suspicious bony lesions. No vertebral body compression fractures. IMPRESSION: 1. High-grade large bowel obstruction with transition point sigmoid colon. Fracture appears to be sec ondary to sigmoid volvulus. 2. Segmental wall thickening involving the sigmoid colon immediately distal to the point of volvulus which could represent edema or neoplastic process. 3. Stranding and nodularity in the mesentery adjacent to the sigmoid colon at the level of cerclage w all thickening which could represent edema or focal neoplastic spread. 4. No free peritoneal air. Findings discussed with Dr. Santos on 06/28 2021 at 1745 hours. Reviewed by: Lakshmi Thorpe MD, PhD on 06/28/2021 5:50 PM PDT Approved by: Lakshmi Thorpe MD, PhD on 06/28/2021 5:50 PM PDT Station ID: [id number]
--- NOTE | 2021-06-28 18:43 | HISTORY & PHYSICAL EXAMINATION ---
HPI - Admitted From Admitted from: ED - History Obtained From History obtained from: Other (Other provider) Exam limitations: Other (Patient mental status) - History of Present Illness HPI Comment/Other: Patient presented to the emergency room complaining of about 3 days of constipation and about 12 hours of inability to urinate. He specifically denied any abdominal pain. He was seen and evaluated by Dr. Handley and eventually had a CT scan of the abdomen and pelvis that revealed a sigmoid volvulus with a hig h-grade obstruction. Dr. Handley spoke with his daughter per telephone and she indicated that she felt her father had a high quality of life and desires that he would have surgical correction of this problem.Alan seems to have some dementia is not able to tell me much more about his symptoms.Here in the emergency room, he is not complaining of any nausea or vomiting.Here in the emergency room, he is not complaining of any nausea or vomiting.Here in the emergency room, he is not complaining of any nausea or vomiting.Here in the emergency room, he is not complaining of any nausea or vomiting. PMH/PSH - Past Medical History Cardiovascular: positive: Hypertension Respiratory: positive: None Neuro: positive: Dementia Endocrine/Autoimmune: positive: None : positive: None HEENT: positive: None Psych: positive: None Musculoskeletal: positive: None Derm: positive: None Social & Family Hx - Social History Does the pt smoke?: No Smoking Status: Never smoker Does the pt drink ETOH?: No Does the pt have substance abuse?: No - POLST Patient has POLST: No Meds/Allgy - Home Medications Home Medications: Ambulatory Orders Medication Instructions Recorded Confirmed Atorvastatin Calcium 40 mg PO DAILY 01/04/21 01/04/21 - Allergies Allergies/Adverse Reactions: Allergies Allergy/AdvReac Type Severity Reaction Status Date / Time No Known Drug Allergies Allergy Verified 06/28/21 15:08 Review of Systems - Other Findings Other Findings: Unable to obtain a review reliable review of systems due to patient's mental status. Exam - Vital Signs Reviewed Vital Signs: Yes Vital Signs: Vital Signs x48h Temp Pulse Resp BP Pulse Ox 06/28/21 17:55 107 H 20 163/88 H 97 06/28/21 15:07 104 H 06/28/21 15:05 36.5 C 105 H 15 111/63 94 - Physical Exam General Appearance: positive: No acute distress, Alert Eyes Bilateral: positive: Normal inspection, PERRL, EOMI ENT: positive: ENT inspection nml Neck: positive: Nml inspection Respiratory: positive: Chest non-tender, No respiratory distress, Breath sounds nml Cardiovascular: positive: Regular rate & rhythm, Tachycardia Peripheral Pulses: positive: 0 Abdomen: positive: Tenderness, Other (Distended). negative: Rebound Extremities: positive: Non-tender Neurologic/Psychiatric: positive: Disoriented to place, Disoriented to time Results - Lab Results Fish Bones: 06/28/21 15:36 06/28/21 15:36 Other Lab Results: Lab Results x24hrs 06/28/21 06/28/21 06/28/21 Range/Units 15:47 15:36 15:36 WBC 13.6 H (4.8-10.8) x10^3/uL RBC 4.18 L (4.70-6.10) 10^6/uL Hgb 13.8 L (14.0-18.0) g/dL Hct 40.9 L (42.0-52.0) % MCV 97.8 H (80.0-94.0) fL MCH 33.0 H (27.0-31.0) pg MCHC 33.7 (32.0-36.0) g/dL RDW 14.1 (12.0-15.0) % Plt Count 262 (130-450) 10^3/uL MPV 9.4 (7.4-11.4) fL Neut # (Auto) 10.2 H (1.5-6.6) 10^3/uL Lymph # (Auto) 2.1 (1.5-3.5) 10^3/uL [place] # (Auto) 1.2 H (0.0-1.0) 10^3/uL Eos # (Auto) 0.0 (0.0-0.7) 10^3/uL Baso # (Auto) 0.0 (0.0-0.1) 10^3/uL Absolute Nucleated RBC 0.00 x10^3/uL Nucleated RBC % 0.0 /100WBC Sodium 134 L (135-145) mmol/L Potassium 3.6 (3.5-5.0) mmol/L Chloride 98 L (101-111) mmol/L Carbon Dioxide 23 (21-32) mmol/L Anion Gap 13.0 (6-13) BUN 25 H (6-20) mg/dL Creatinine 1.0 (0.6-1.2) mg/dL Estimated GFR (MDRD) 72 L (>89) Glucose 164 H (70-100) mg/dL Calcium 9.1 (8.5-10.3) mg/dL Total Bilirubin 1.2 H (0.2-1.0) mg/dL AST 34 (10-42) IU/L ALT 25 (10-60) IU/L Alkaline Phosphatase 30 L (42-121) IU/L Total Protein 7.4 (6.7-8.2) g/dL Albumin 3.8 (3.2-5.5) g/dL Globulin 3.6 (2.1-4.2) g/dL Albumin/Globulin Ratio 1.1 (1.0-2.2) Lipase 40 (22-51) U/L Urine Color YELLOW Urine Clarity CLEAR (CLEAR) Urine pH 5.5 (5.0-7.5) PH Ur Specific [place] >=1.030 H (1.002-1.030) Urine Protein TRACE (NEGATIVE) mg/dL Urine Glucose (UA) NEGATIVE (NEGATIVE) mg/dL Urine Ketones NEGATIVE (NEGATIVE) mg/dL Urine Occult Blood NEGATIVE (NEGATIVE) Urine Nitrite NEGATIVE (NEGATIVE) Urine Bilirubin NEGATIVE (NEGATIVE) Urine Urobilinogen 0.2 (NORMAL) (NORMAL) E.U./dL Ur Leukocyte Esterase NEGATIVE (NEGATIVE) Ur Microscopic Review NOT INDICATED Urine Culture Comments NOT INDICATED - Diagnostic Imaging Results Diagnostic Imaging Results Comments: Consistent with sigmoid volvulus with the colon dilated up to 12.5 cm causing high-grade obstruction. Impression/Plan - Problem List Problem List: The patient's daughter arrived here and I was able to speak with her regarding his care. He lives with her and she is his primary caregiver. She said that she has noticed over the last several days that he has been getting progressively weaker and then complained that he had pain in his butt.She is also the caregiver for her grandchildren and so she has been quite busy.When he told her she had pain in his but she asked if he was constipated and he said yes so she began giving him cathartics. That is when she noted the big mass in his abdomen and brought him to the emergency room.She understands that this is a risky operation as he is quite weak. The risks include but are not limited to infection, bleeding, stroke, heart attack, unexpected findings or results, and additional procedures to be needed in the future.I have recommended laparotomy with colostomy and sigmoid colectomy.He will be admitted following the procedure for continued care and ostomy training.
[2021-06-28] MEDS ORDERED: BUPIVACAINE 0.5% PF 10 ML VIAL ONE (19:48)
[2021-06-28] MEDS ORDERED: LIDOCAINE 2%-EPI 1:100000 20 ML MDV ONE (19:48)
[2021-06-28] MEDS ORDERED: LIDOCAINE-MPF 2% 5 ML VIAL ONE (19:49)
[2021-06-28] MEDS ORDERED: PROPOFOL 200 MG/20 ML VIAL IVP ONE (19:49)
[2021-06-28] MEDS ORDERED: fentaNYL 100 MCG/2 ML VIAL ONE (19:50)
--- NOTE | 2021-06-28 19:53 | ANESTHESIA ---
Pre-Anesthesia VS, & Labs - Diagnosis bowel obstruction - Procedure bowel resection with possible colostomy Vital Signs: Temp Pulse Resp BP Pulse Ox 36.9 C 88 16 162/88 H 94 06/28/21 19:00 06/28/21 19:00 06/28/21 19:32 06/28/21 19:00 06/28/21 19:00 Height: 6 ft Weight (kg): 68.039 kg Body Mass Index: 20.3 BMI Classification: Healthy weight - NPO >8 hours - Lab Results Current Lab Results: Laboratory Tests 06/28/21 15:36: Sodium 134 L, Potassium 3.6, Chloride 98 L, Carbon Dioxide 23, Anion Gap 13.0, BUN 25 H, Creatinine 1.0, Estimated GFR (MDRD) 72 L, Glucose 164 H, Calcium 9.1, Total Bilirubin 1.2 H, AST 34, ALT 25, Alkaline Phosphatase 30 L , Total Protein 7.4, Albumin 3.8, Globulin 3.6, Albumin/Globulin Ratio 1.1, Lipase 40 06/28/21 15:36: WBC 13.6 H, RBC 4.18 L, Hgb 13.8 L, Hct 40.9 L, MCV 97.8 H, MCH 33.0 H, MCHC 33.7, RDW 14.1, Plt Count 262, MPV 9.4, Neut # (Auto) 10.2 H, Lymph # (Auto) 2.1, [place] # (Auto) 1.2 H, Eos # (Auto) 0.0, Baso # (Auto) 0.0, Absolute Nucleated RBC 0.00, Nucleated RBC % 0.0 Fish Bones: 06/28/21 15:36 06/28/21 15:36 Home Medications and Allergies Home Medications: Ambulatory Orders Atorvastatin [Lipitor] 40 mg PO DAILY 06/28/21 Atorvastatin [Lipitor] 40 mg PO DAILY 06/28/21 Allergies/Adverse Reactions: Allergies Allergy/AdvReac Type Severity Reaction Status Date / Time No Known Drug Allergies Allergy Verified 06/28/21 15:08 Anes History & Medical History - Anesthetic History Anesthesia Complications: reports: No previous complications Family history of Anesthesia Complications: Denies Family history of Malignant Hyperthermia: Denies - Medical History Cardiovascular: reports: Hypertension, Other (hx of Bilateral CEA) Pulmonary: reports: None Urinary: reports: None Neuro: reports: Dementia, Other (Hx of SAH with shunt) Musculoskeletal: reports: None Endocrine/Autoimmune: reports: None Blood Disorders: reports: None Skin: reports: None Smoking Status: Never smoker Exam General: Alert, Cooperative, Other (dementia) Dental: Poor dentition (missing multiple teeth and poor dentition throughout) Mouth Openin Fingerbreadth Neck Mobility: Normal Mallampati classification: II Respiratory: Lungs clear Cardiovascular: Regular rate Plan Anesthesia Type: General, Transverse Abdominis Plane (TAP) Block Regional Block: Per Surgeon's request for Post Op pain control Consent for Procedure(s) Verified and Reviewed: Yes Code Status: Attempt Resuscitation ASA classification: 3-Severe systemic disease Is this case an emergency?: Yes
[2021-06-28] MEDS ORDERED: fentaNYL 100 MCG/2 ML VIAL IVP PRN (19:55)
[2021-06-28] MEDS ORDERED: HYDROmorphone 0.5 MG/0.5 ML SYRINGE IVP PRN ×2 (19:55→22:00)
[2021-06-28] MEDS ORDERED: NALOXONE 0.4 MG/ML VIAL IVP PRN (19:55)
[2021-06-28] MEDS ORDERED: ATROPINE ABBOJECT 1 MG/10 ML SYRINGE IVP PRN (19:55)
[2021-06-28] MEDS ORDERED: MORPHINE 2 MG/ML CARPUJECT IVP PRN (19:55)
[2021-06-28] MEDS ORDERED: METOCLOPRAMIDE 10 MG/2 ML VIAL IVP PRN (19:55)
[2021-06-28] MEDS ORDERED: ONDANSETRON 4 MG/2 ML VIAL IVP PRN ×2 (19:55→22:00)
[2021-06-28] MEDS ORDERED: ePHEDrine 50 MG/ML VIAL IVP PRN (19:55)
[2021-06-28] MEDS ORDERED: LACTATED RINGERS 1,000 ML IV SCH (20:00)
[2021-06-28] MEDS ORDERED: PHENYLEPHRINE 10 MG/ML VIAL ONE (20:25)
[2021-06-28] MEDS ORDERED: ceFAZolin 1 GM VIAL ONE (20:25)
[2021-06-28] MEDS ORDERED: LIDOCAINE 2%-EPI 1:100000 20 ML MDV SUBQ ONE (20:32)
[2021-06-28] MEDS ORDERED: BUPIVACAINE 0.5% PF 10 ML VIAL IM ONE (20:33)
[2021-06-28] MEDS ORDERED: ROPIVACAINE 0.5% PF 20 ML AMPULE ONE (20:50)
[2021-06-28] MEDS ORDERED: ACETAMINOPHEN 1,000 MG/100 ML 100 ML IV ONE (20:56)
[2021-06-28] MEDS ORDERED: SUGAMMADEX 200 MG/2 ML VIAL IVP ONE (21:25)
--- NOTE | 2021-06-28 21:27 | OPERATIVE REPORT ---
Operative Report - General Procedure Date: 06/28/21 Planned Procedure: Laparotomy with bowel resection and colostomy Pre-Op Diagnosis: Sigmoid volvulus with high-grade bowel obstruction Procedure Performed: Laparotomy with sigmoid colectomy, end colostomy, and Dania's pouch. Post Op Diagnosis: Sigmoid volvulus with high-grade small bowel obstruction - Procedure Note Primary Surgeon: Razia Anesthesia Provider: CARMEL Sifuentes Anesthesia Technique: General ET tube, Local, Regional block Pathology: Sigmoid colon to pathology in formalin IV Fluids (mL): 1,500 Estimated Blood Loss (mL): 20 Findings: 1. Volvulus of the sigmoid colon at the level of the peritoneal reflection creating complete bowel obstruction. 2. Gross distention of the sigmoid colon up to 15 cm. 3. Ventriculoperitoneal shunt 4. No peritoneal contamination during the procedure Complications: None apparent - Other Other Information/Narrative: After obtaining informed consent, the patient is brought to the operating room and placed in the supine position on the operating table. Following successful induction of general endotracheal anesthesia, appropriate padding of all bony pr ominences, and placement of appropriate monitors, the abdomen was prepped and draped in the standard surgical fashion. A timeout was held per scope protocol. All elements of the surgical safety checklist were followed before, during, and after the procedure. We began the procedure by infiltrating a mixture of local anesthetics in the midline inferior to the umbilicus. An incision was created here and carried through the skin and subcutaneous tissue to reveal the peritoneum. The peritoneum was lifted off of the visible sigmoid colon below it and opened with Metzenbaum scissors. The surgeon's finger was inserted into the peritoneal cavity and used as a guide to open the peritoneum onto the incision.The sigmoid colon was identified in the left upper quadrant and gently delivered into the field. A very tight volvulus was identified at the level of the peritoneal reflection causing a complete bowel obstruction. Bowel clamps were placed across this bowel proximal and distal to the level of division. A 75 mm IAN stapling device was used to divide the bowel at this point. 3 loads in total were used to complete the division. The descending colon was then identified in the left lower quadrant and divided at an area of tissue that appeared to be well vascularized and only moderately distended.This was done by creating a window in the mesentery and dividing the bowel here with a 75 mm IAN Stapling device.The LigaSure was then used to divide the mesentery of the colon.This was done carefully and under direct vision to be sure not to injure any of the surrounding structures.The colon was then completely liberated and passed from the table.It is notable that there was no peritoneal contamination during the division of the bowel.The Gardner's pouch was oversewn with a running locking Prolene suture leaving the long tails at each end.The abdomen was then checked for hemostasis. A site was chosen for an ostomy in the left lower quadrant medial to the anterior superior iliac spine on the left. The skin in this site was grasped with a Johnny clamp and a circular disc removed sharply. The fatty tissue underneath was then removed using cautery and a cruciate incision created in the fascia. 3 of the surgeon's fingers were used to stretch the fascia and to the proximal limb of the colon was delivered through the opening without tension.The colon was then sewn to the fascia internally with 2 interrupted 3-0 silk sutures. The ventriculoperitoneal shunt was identified. A clog of fibrinous exudate was removed from the distal end and it was placed back into the peritoneal cavity.The abdomen was irrigated with 1 L of warm saline solution and aspirated free of all fluid.The peritoneum was then closed with running 3-0 Vicryl suture. The fascia was closed with running looped PDS suture. Skin clips were applied in the skin. The ostomy was then matured as follows. The midline incision was carefully covered and protected to avoid any contamination. The end of the colon was held with Allis clamps and opened using cautery. A pool sucker device was placed in the colon and air and semisolid stool aspirated.The entire stapled end of the colon was then removed sharply. The colon end was removed and a ostomy created by sewing the end of the cut colon to the dermal junction using interrupted 3-0 Vicryl sutures.An ostomy appliance was applied. A dry dressing was applied to the midline incision. All sponge, needle, and instrument counts were correct at the conclusion of the case. The patient was allowed awaken from anesthesia and taken to the surgical intensive care unit for continued recovery and supportive care.
[2021-06-28] MEDS ORDERED: LACTATED RINGERS 1,000 ML IV ONE (21:55)
[2021-06-28] MEDS ORDERED: ACETAMINOPHEN 1,000 MG/100 ML 100 ML IV PRN (22:00)
[2021-06-28] MEDS ORDERED: BENZOCAINE/TETRACAINE/BUTAMBEN 20 GM MM PRN (22:00)
[2021-06-28] MEDS ORDERED: SUCCINYLCHOLINE 200 MG/10 ML VIAL ONE (22:01)
--- NOTE | 2021-06-28 22:03 | ANESTHESIA POST OP EVALUATION ---
Anesthesia Post Eval - Post Anesthesia Eval Vitals: Last Vital Signs Temp 36.5 C 06/28/21 21:55 Pulse 77 06/28/21 21:55 Resp 18 06/28/21 21:55 BP 149/72 H 06/28/21 21:55 Pulse Ox 100 06/28/21 21:55 CV Function Including HR & BP: Stable Pain Control: Satisfactory Nausea & Vomiting: Negative Mental Status: Patient Participates Respiratory Status: Airway Patent Hydration Status: Satisfactory Anesthesia Complications: None
[2021-06-28] MEDS: SODIUM CHLORIDE 0.9% 1,000 ML IV SCH (23:07)
--- NOTE | 2021-06-28 23:32 | CONSULTATION NOTE ---
Referring Provider Name of Referring Provider:: Neva Randle MD Consult Date: 06/28/21 Chief Complaint - Chief Complaint Chief Complaint: postop afib and diabetes management History of Present Illness - Admitted From Admitted From:: home via ER - History Obtained From Records Reviewed: [facility] History obtained from: Dr. 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 He had a stroke 12 years ago which resulted in 4 craniotomies and a subsequent FLY MAKER shunt for hydrocephalus. He has lived with his daughter since. She states that he has done well. He was not the kindest of person's when he was working full-time. But time has mellowed him and she finds him to be a very "happy mark, the best". When she first started taking care of him, he needed to learn how to walk again. Feed himself again. And he did well. He walks with a walker, but occasionally has imbalance problems and falls may be 2 or 3 times a year. They call EMS to pick him up and then they leave. His appetite has been good. In the last 12 months he has deteriorated with regards to memory and she thinks he may be depressed. Her daughter, his granddaughter, accidentally overdosed in June 2020 and he has never been the same since. He has become more withdrawn, getting harder to get him to feed himself and go to the bathroom by himself. He does not want to ambulate anymore using the walker. Daughter finds that she is having to bathe him more. She has to cajole him more. She finally hired a private duty caregiver to come 5 days a week, 6 hours a day. It is made all the difference. About 3 days ago she noticed that he was more withdrawn than usual and he just did not want to get out of bed. When she would speak to him he was not any more lethargic than usual. There is no fever, chills, nausea, vomiting or lethargy. No change in bowel habits. She was asking him general questions about if anything hurt and he finally started answering yes to the question about his abdomen. She asked if he was constipated and he said yes. So she started doing a lot of things to try and get him to go to the bathroom and nothing was working and he was not eating. At no point did he describe abdominal pain. There is no fever or rigors or sweats. Then early in the morning, he just stopped urinating. He is getting more uncomfortable with this. And she brought him to the emergency room. He was evaluated by Dr. Santos where temperature was 36.5. Heart rate 105. Respirations 15. Blood pressure 111/63. O2 sat 94% on room air. He was o riented to person and place but not time or events. He had frequent ectopic beats but had a sinus rhythm. His abdomen was distended, and nontender. White cell count was 13.6. Hemoglobin 13.8. Sodium 134. BUN 25. Creatinine 1.0. Random glucose 164. Total bili 1.2. Urinalysis negative. CT of the abdomen showed a high-grade bowel obstruction related to a sigmoid volvulus with concern for underlying neoplasm. He was taken to the operating room by Dr. Randle and she found to have a volvulus that was torsed around the peritoneal reflection that had created a complete bowel obstruction. He had gross distention of the sigmoid bowel. She performed a laparotomy with a sigmoid colectomy, end colostomy and a Dania's pouch. Perioperatively he was described as having runs of atrial fibrillation. He was hypotensive and tachycardic. Once the bowel was untwisted, pulse rate and blood pressure normalized. Since being in ICU he no longer has had atrial fibrillation. Dr. Randle is asking us to consult and manage arrhythmias if they occur. Because he has dementia, I spoke to his daughter who gave me his past medical history and CODE STATUS. History - Past Medical History Cardiovascular: reports: Hypertension, High cholesterol Respiratory: reports: None Neuro: reports: Dementia, CVA (brain bleed 2008) Endocrine/Autoimmune: reports: None GI: reports: None : reports: Benign prostate hypertrophy, Retention HEENT: reports: Chronic vision loss, Chronic hearing loss Psych: reports: Anxiety Musculoskeletal: reports: Osteoarthritis Derm: reports: None MRSA Hx?: No - Past Surgical History Neuro: reports: Craniotomy (4 surgeries), FLY MAKER shunt - Family & Social History Family History Comment/Other: Dad at age 86 of liver cancer. Mom at age 92 of old age but was completely healthy. 1 sister at age 50 of a throat condition. It was not throat cancer. 1 daughter is completely healthy without diabetes, cancer, heart attack, stroke or thyroid disease Living arrangement: At home Living Situation: With family Social History Notes: He is a close to 2 pack/day smoker this started at the age of 16 with the [employer] and quit at the age of 34. He was a heavy drinker for much of his life. For the last 12 years he would go to [place] and have 1 or 2 beers twice a week. A year ago, with Covid, the daughter decided not to take him anymore. The other reason was her increased need to be caregiver. With her daughter dying, her daughter's children came to live with her and she now has custody of them. Is been more chaotic to have small children in the house as well as taking care of her father. So not going to go get a drink was one of the things that she had to give up for him. He has no history of recreational substance abuse. His in September 2006. 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 100% service-connected with the [employer]. - Substance History Use: Uses substance without health or social issues: NONE Abuse: Recurrent use of substance despite neg consequences: NONE Dependence: Experiences withdrawal or developed tolerances: NONE - POLST Patient has POLST: No POLST Status: DNR Meds/Allgy - Home Medications Home Medications: Ambulatory Orders Medication Instructions Recorded Confirmed Atorvastatin [Lipitor] 40 mg PO DAILY 06/28/21 06/28/21 - Allergies Allergies/Adverse Reactions: Allergies Allergy/AdvReac Type Severity Reaction Status Date / Time No Known Drug Allergies Allergy Verified 06/28/21 15:08 Review of Systems - Constitutional Constitutional: reports: Fatigue, Malaise, Weakness, Poor appetite. denies: Fever, Chills, Diaphoresis, Night sweats - Eyes Eyes: reports: Vision loss. denies: Pain, Irritation, Amaurosis, Blurred vision, Field loss - Ears, Nose & Throat Ears, Nose & Throat: denies: Hearing loss, Sore throat, Hoarseness - Cardiovascular Cariovascular: denies: Irregular heart rate, Palpitations, Chest pain, Edema, Exertional dyspnea, Decr. exercise tolerance - Respiratory Respiratory: denies: Cough, Sputum production, Wheezing, Snoring, Hemoptysis, Orthopnea, SOB at rest, SOB with exertion - Gastrointestinal Gastrointestinal: reports: Abdominal distention, Constipation, Change in bowel habits. denies: Abdominal pain, Diarrhea, Rectal bleeding, Black stools, Bloody stools, Nausea, Vomiting, Coffee grounds emesis, Bloating - Genitourinary Genitourinary: reports: Frequency, Urgency, Incontinence. denies: Dysuria, Hematuria, Nocturia, Urethral discharge - Musculoskeletal Musculoskeletal: reports: Stiffness, Joint pain. denies: Muscle pain, Back pain, Muscle aches, Limited range of motion, Muscle weakness, Gout - Integumentary Integumentary: denies: Rash, Pruritis, Lesions - Neurological Neurological: reports: Memory problems, Abnormal gait, Incoordination - Psychiatric Psychiatric: reports: Anxiety - Endocrine Endocrine: denies: Polyuria, Polydypsia, Polyphagia - Hematologic/Lymphatic Hematologic/Lymphatic: denies: Anemia, Bruising, Petechiae, Blood clots - All Other Systems All Other Systems: reports: Other (Due to his dementia, review of systems is obtained from his daughter) Exam - Vital Signs Reviewed Vital Signs: Yes Vital Signs: Vital Signs x48h Temp Pulse Pulse Resp BP BP Pulse Ox 06/28/21 22:45 71 18 145/81 H 96 06/28/21 22:37 36.6 C 79 18 150/85 H 96 06/28/21 22:16 36.5 C 76 20 161/66 H 96 06/28/21 22:05 36.5 C 72 20 153/68 H 100 06/28/21 21:55 36.5 C 77 18 149/72 H 100 06/28/21 21:50 36.5 C 70 19 161/76 H 100 06/28/21 21:45 36.3 C L 76 20 158/77 H 100 06/28/21 21:40 36.3 C L 78 20 158/77 H 100 06/28/21 21:21 36.5 C 80 18 152/80 H 96 06/28/21 19:32 16 06/28/21 19:00 36.9 C 88 15 162/88 H 94 06/28/21 17:55 107 H 20 163/88 H 97 - Physical Exam General Appearance: positive: No acute distress, Alert, Other (While he was alert and oriented in the ER, right now he tells me he does not know his name. And he tells me he is from [place]. I think he is joking with this but it is hard to tell because he will not break his smile. He is completely cooperative.) Eyes Bilateral: positive: PERRL, EOMI ENT: positive: No signs of dehydration Neck: positive: No JVD. negative: Stiff neck Respiratory: positive: No respiratory distress. negative: Wheezes, Rales, Rhonchi Cardiovascular: positive: Regular rate & rhythm, Systolic murmur, Other (Current telemetry is normal sinus rhythm with PACs). negative: Gallop/S4, Friction rub Peripheral Pulses: positive: 1+ Abdomen: positive: Non-tender, Abnml bowel sounds (No bowel sounds), Other (Colostomy left lower quadrant. Vertical incision hypogastric is covered in a bandage.Mildly distended. But comfortable patient. He says it does not hurt when I palpate.). negative: Guarding, Rebound Back: negative: CVA tenderness (R), CVA tenderness (L) Skin: positive: No rash, Warm, Dry. negative: Diaphoresis Extremities: positive: Non-tender, Full ROM, Nml appearance, No pedal edema Neurologic/Psychiatric: positive: CN's nml (2-12), Motor nml, Disoriented to person, Disoriented to place, Disoriented to time, Other (Multiple nelly holes located on scalp/skull). negative: Slurred/abnml speech Conclusion/Plan - Problem List (1) Intestinal obstruction Conclusion/Plan: Complete. Due to volvulus. Now resolved with ostomy and Dania's pouch in place. Postop day #0. Plan: Inpatient status Diet and pain management per general surgery Qualifiers: Intestinal obstruction type: volvulus Qualified Code(s): K56.2 - Volvulus (2) Atrial fibrillation Conclusion/Plan: Present. Only seen in the OR. Plan: Troponins Echo Telemetry Qualifiers: Atrial fibrillation type: paroxysmal Qualified Code(s): I48.0 - Paroxysmal atrial fibrillation (3) Dementia due to general medical condition without behavioral disturbance Conclusion/Plan: Daughter/POA describes him as not having any behavioral disorders. Her name is Cameron Tom. [phone]. If anything he just become more withdrawn ever since his granddaughter killed herself last June. He still has a decent appetite, he just does not want to get up and walk as much. Memory is deteriorating. Needing more prompting for bathing. She really wants him to come back home. They have the wherewithal to have private duty caregivers and she does not want him placed in a long-term facility. She is willing to let him go to a long-term facility if he needs physical rehabilitation for short time but wants him to come back home. Plan: Encourage out of bed status. He needs to get up and at least sit in a chair. Ambulate in room. (4) Diabetes mellitus Conclusion/Plan: His random glucose is elevated in the 160s. But in reviewing the electronic medical record his glucose has been elevated multiple times. None of them have been over 175.He does not carry the diagnosis of type 2 diabetes mellitus, however, on the basis of his EMR I will add that diagnosis Plan: Check A1c Sliding scale insulin to adjust depending on his p.o. intake Qualifiers: Diabetes mellitus type: type 2 Diabetes mellitus alf insulin use: without alf use Diabetes mellitus complication status: without complication Qualified Code(s): E11.9 - Type 2 diabetes mellitus without complications (5) Hypertension Conclusion/Plan: He is to have this is a diagnosis in the past. But has not taken medications for this for quite some time because his blood pressure was well controlled. In the operating room he was hypotensive and that resolved once the volvulus was decompressed. Daughter states that he can get quite anxious. Could the hypertension be from anxiety? Plan: Continue to monitor. Give as needed medication if systolic greater than 170 and diastolic greater than 95 Qualifiers: Hypertension type: primary hypertension Qualified Code(s): I10 - Essential (primary) hypertension (6) DVT prophylaxis Conclusion/Plan: lovenox and SCD (7) Do not resuscitate Conclusion/Plan: His daughter states that he has a good quality of life. She thinks if this surgery is successful he can return to that quality of life with a reasonable expectation. However if he were to have a sudden reversal of events and develop a respiratory or cardiac arrest or significant brain injury, he is to be a DO NOT RESUSCITATE. - Lab Results Lab results reviewed: Yes Fish Bones: 06/28/21 15:36 06/28/21 15:36 - Diagnostic Imaging Results Diagnostic Imaging Results: positive: Final report reviewed Diagnostic Imaging Results Comments: High-grade large bowel obstruction with transition point sigmoid colon. Appears to be secondary to sigmoid volvulus. Segmental wall thickening involving the sigmoid colon immediately distal to the point of volvulus which could represent edema or neoplastic process. Stranding and nodularity in the mesentery adjacent to the sigmoid colon at the level of cerclage wall thickening which could represent edema or focal neoplastic spread. No free peritoneal air. - EKG Results EKG Interpreted Independently: No EKG Comparison: No prior EKG
[2021-06-29] MEDS: INSULIN REGULAR HUMAN 300 UNIT/3 ML VIAL SUBQ SCH ×4 (00:25→18:53)
[2021-06-29] MEDS: ceFAZolin 2 GM in SODIUM CHLORIDE 0.9% 100ML 100 ML IV SCH ×2 (04:13→11:09)
[2021-06-29] MEDS: SODIUM CHLORIDE FLUSH 0.9% 10 ML SYRINGE IVP SCH ×3 (04:14→18:53)
[2021-06-29 04:56] LABS: BASOPHILS % (AUTO) 0.2 %; EOSINOPHILS % (AUTO) 0.2 %; HGB - HEMOGLOBIN 13.7 g/dL (14.0-18.0); LYMPHOCYTES % (AUTO) 23.3 %; MEAN CORPUSCULAR HEMOGLOBIN 33.5 pg (27.0-31.0); MEAN CORPUSCULAR HGB CONC 33.4 g/dL (32.0-36.0); MEAN CORPUSCULAR VOLUME 100.2 fL (80.0-94.0); MEAN PLATELET VOLUME 10.3 fL (7.4-11.4); MONOCYTES % (AUTO) 6.1 %; PLT - PLATELET COUNT 202 10^3/uL (130-450); RED BLOOD COUNT 4.09 10^6/uL (4.70-6.10); RED CELL DISTRIBUTION WIDTH 14.3 % (12.0-15.0); WHITE BLOOD COUNT 8.6 x10^3/uL (4.8-10.8)
[2021-06-29 05:02] LABS: ABNORMAL LYMPHS % (MANUAL) 0 %
[2021-06-29 05:06] LABS: ALBUMIN 3.4 g/dL (3.2-5.5); CALCIUM 8.6 mg/dL (8.5-10.3); POTASSIUM 4.2 mmol/L (3.5-5.0); TOTAL PROTEIN 6.8 g/dL (6.7-8.2)
[2021-06-29 06:00] LABS: BAND NEUTROPHILS % (MANUAL) 11 %; DIFFERENTIAL COMMENT MANUAL DIFFERENTIAL; LYMPHOCYTES # (MANUAL) 2.7 10^3/uL (1.5-3.5); LYMPHOCYTES % (MANUAL) 31 %; MONOCYTES # (MANUAL) 0.3 10^3/uL (0.0-1.0); NEUTROPHILS # (MANUAL) 5.6 10^3/uL (1.5-6.6); PLATELET ESTIMATE, MANUAL NORMAL (130-450,000) (NORMAL); RBC MORPHOLOGY (MULTIPLE) NORMAL APPEARANCE (NORMAL)
[2021-06-29] MEDS: PANTOPRAZOLE 40 MG VIAL IVP SCH (06:20)
--- NOTE | 2021-06-29 10:24 | PHARMACY PROGRESS NOTE ---
- Best Possible Medication History Admit Date and Time: 06/28/21 2200 Processed by: Nursing Medication History completed: Yes Med list confirmed by nursing As the person ultimately responsible for medication therapy, providers are able to order a medication from an existing home medication list in [facility] via the "Reconcile Routine" prior to Confirmation of that medication by production support manager. Such practice is discouraged except when the physician, in their clinical judgment, deems that a medical need exists for a medication without regard to previous use.
[2021-06-29] MEDS ORDERED: ceFAZolin 1 GM VIAL ONE (11:09)
[2021-06-29] MEDS: SODIUM CHLORIDE 0.9% 1,000 ML IV SCH ×2 (11:09→21:43)
--- NOTE | 2021-06-29 11:46 | PROVIDER PROGRESS NOTE ---
Assessment/Plan - Problem List (1) Intestinal obstruction Qualifiers: Intestinal obstruction type: volvulus Qualified Code(s): K56.2 - Volvulus Assessment/Plan: S/P day 1. pt has ostomy and Dania's pouch in place. Diet and pain management per general surgery. continue PT Evaluation and treatment, Encourage patient out of bed safely (2) Atrial fibrillation HR is controlled and stable. it was Only seen in the OR. Troponin is negative, ECHO is pending, continue tele monitor and vital monitor. 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 she hope d/c to home but She is willing to let him go to a alf facility if he needs physical rehabilitation for short time but wants him to come back home. (4) Diabetes mellitus He does not carry the diagnosis of type 2 diabetes mellitus in the past, Patient has no diabetic medication in his home medication list. will check A1C Check A1c, is pending Sliding scale insulin to adjust depending on his p.o. intake (5) Hypertension stable, Continue vital signs monitor (6) DVT prophylaxis lovenox and SCD (7) Do not resuscitate Per admission provider's note, His daughter states that he has a good quality of life. She thinks if this surgery is successful he can return to that quality of life with a reasonable expectation. However if he were to have a sudden reversal of events and develop a respiratory or cardiac arrest or significant brain injury, he is to be a DO NOT RESUSCITATE. - Current Meds Current Meds: Current Medications Generic Name Dose Route Start Last Admin Trade Name [place] PRN Reason Stop Dose Admin Sodium Chloride 1,000 mls @ 100 mls/hr 06/28/21 22:00 06/29/21 11:09 Normal Saline 0.9% IV 100 mls/hr .Q10H JUAQUIN Administration Cefazolin Sodium 2 gm/ Sodium 100 mls @ 200 mls/hr 06/29/21 04:00 06/29/21 11:09 Chloride IV 06/29/21 12:29 200 mls/hr Q8H JUAQUIN Administration Insulin Human Regular 1 - 5 unit 06/29/21 00:00 06/29/21 06:15 Insulin Regular Human 300 Unit/3 Ml Vial SUBQ Not Given Q6HR JUAQUIN Protocol Pantoprazole Sodium 40 mg 06/29/21 07:00 06/29/21 06:20 Pantoprazole 40 Mg Vial IVP 40 mg QDAC JUAQUIN Administration Sodium Chloride 10 ml 06/29/21 01:00 06/29/21 06:20 Sodium Chloride Flush 0.9% 10 Ml Syringe IVP 10 ml 0100,0900,1700 JUAQUIN Administration - Lab Result Fish Bone Diagrams: 06/29/21 04:32 06/29/21 04:32 - Additional Planning My Orders: My Active Orders 06/29/21 11:04 Out of bed 3+ hours today [RC] TID Subjective - Subjective Patient Reports: Feeling Better, No Complaints Objective Vital Signs: Vital Signs - 24 hr 06/28/21 06/28/21 06/28/21 15:05 15:07 17:55 Temperature 36.5 C Heart Rate 105 H 104 H 107 H Heart Rate [ Monitoring electrodes] Respiratory 15 20 Rate Blood Pressure 111/63 163/88 H Blood Pressure [Left Brachial artery] O2 Saturation 94 97 06/28/21 06/28/21 06/28/21 19:00 19:32 21:21 Temperature 36.9 C 36.5 C Heart Rate 88 80 Heart Rate [ Monitoring electrodes] Respiratory 15 16 18 Rate Blood Pressure 162/88 H 152/80 H Blood Pressure [Left Brachial artery] O2 Saturation 94 96 06/28/21 06/28/21 06/28/21 21:40 21:45 21:50 Temperature 36.3 C L 36.3 C L 36.5 C Heart Rate 78 76 70 Heart Rate [ Monitoring electrodes] Respiratory 20 20 19 Rate Blood Pressure 158/77 H 158/77 H 161/76 H Blood Pressure [Left Brachial artery] O2 Saturation 100 100 100 06/28/21 06/28/21 06/28/21 21:55 22:05 22:16 Temperature 36.5 C 36.5 C 36.5 C Heart Rate 77 72 76 Heart Rate [ Monitoring electrodes] Respiratory 18 20 20 Rate Blood Pressure 149/72 H 153/68 H 161/66 H Blood Pressure [Left Brachial artery] O2 Saturation 100 100 96 06/28/21 06/28/21 06/28/21 22:37 22:45 23:00 Temperature 36.6 C Heart Rate 80 Heart Rate [ 79 71 Monitoring electrodes] Respiratory 18 18 17 Rate Blood Pressure Blood Pressure 150/85 H 145/81 H [Left Brachial artery] O2 Saturation 96 96 06/28/21 06/28/21 06/28/21 23:01 23:05 23:10 Temperature Heart Rate 76 76 80 Heart Rate [ Monitoring electrodes] Respiratory 17 18 13 Rate Blood Pressure 140/70 H Blood Pressure [Left Brachial artery] O2 Saturation 06/28/21 06/28/21 06/28/21 23:15 23:16 23:20 Temperature Heart Rate 80 69 70 Heart Rate [ Monitoring electrodes] Respiratory 10 L 16 15 Rate Blood Pressure 132/66 H Blood Pressure [Left Brachial artery] O2 Saturation 06/28/21 06/28/21 06/28/21 23:25 23:30 23:31 Temperature 36.4 C L Heart Rate 69 76 77 Heart Rate [ 78 Monitoring electrodes] Respiratory 16 10 L 7 L Rate Blood Pressure 133/65 H Blood Pressure 133/65 H [Left Brachial artery] O2 Saturation 98 06/28/21 06/28/21 06/28/21 23:35 23:40 23:45 Temperature Heart Rate 78 83 76 Heart Rate [ Monitoring electrodes] Respiratory 14 15 16 Rate Blood Pressure Blood Pressure [Left Brachial artery] O2 Saturation 06/28/21 06/28/21 06/29/21 23:50 23:55 00:00 Temperature Heart Rate 79 76 76 Heart Rate [ Monitoring electrodes] Respiratory 15 18 15 Rate Blood Pressure Blood Pressure [Left Brachial artery] O2 Saturation 06/29/21 06/29/21 06/29/21 00:01 00:05 00:10 Temperature Heart Rate 86 77 83 Heart Rate [ 79 Monitoring electrodes] Respiratory 15 15 18 Rate Blood Pressure 134/66 H Blood Pressure 134/66 H [Left Brachial artery] O2 Saturation 98 06/29/21 06/29/21 06/29/21 00:15 00:20 00:25 Temperature Heart Rate 82 78 77 Heart Rate [ Monitoring electrodes] Respiratory 17 16 16 Rate Blood Pressure Blood Pressure [Left Brachial artery] O2 Saturation 06/29/21 06/29/21 06/29/21 00:30 00:31 00:35 Temperature Heart Rate 83 75 70 Heart Rate [ Monitoring electrodes] Respiratory 12 13 12 Rate Blood Pressure 112/57 L Blood Pressure [Left Brachial artery] O2 Saturation 06/29/21 06/29/21 06/29/21 00:40 00:45 00:50 Temperature Heart Rate 82 73 86 Heart Rate [ Monitoring electrodes] Respiratory 22 16 18 Rate Blood Pressure Blood Pressure [Left Brachial artery] O2 Saturation 06/29/21 06/29/21 06/29/21 00:55 01:00 01:01 Temperature Heart Rate 85 75 85 Heart Rate [ Monitoring electrodes] Respiratory 16 12 18 Rate Blood Pressure 103/61 Blood Pressure [Left Brachial artery] O2 Saturation 06/29/21 06/29/21 06/29/21 01:05 01:08 01:10 Temperature Heart Rate 64 77 Heart Rate [ 76 Monitoring electrodes] Respiratory 13 17 19 Rate Blood Pressure Blood Pressure 103/61 [Left Brachial artery] O2 Saturation 99 06/29/21 06/29/21 06/29/21 01:15 01:20 01:25 Temperature Heart Rate 81 66 79 Heart Rate [ Monitoring electrodes] Respiratory 18 17 19 Rate Blood Pressure Blood Pressure [Left Brachial artery] O2 Saturation 06/29/21 06/29/21 06/29/21 01:30 01:35 01:40 Temperature Heart Rate 67 72 77 Heart Rate [ Monitoring electrodes] Respiratory 19 18 19 Rate Blood Pressure Blood Pressure [Left Brachial artery] O2 Saturation 06/29/21 06/29/21 06/29/21 01:45 01:50 01:55 Temperature Heart Rate 77 77 77 Heart Rate [ Monitoring electrodes] Respiratory 18 13 17 Rate Blood Pressure Blood Pressure [Left Brachial artery] O2 Saturation 06/29/21 06/29/21 06/29/21 01:57 02:00 02:01 Temperature Heart Rate 91 82 Heart Rate [ 74 Monitoring electrodes] Respiratory 8 L 18 18 Rate Blood Pressure 92/72 Blood Pressure 92/72 [Left Brachial artery] O2 Saturation 96 06/29/21 06/29/21 06/29/21 02:05 02:10 02:15 Temperature Heart Rate 79 77 67 Heart Rate [ Monitoring electrodes] Respiratory 16 17 18 Rate Blood Pressure Blood Pressure [Left Brachial artery] O2 Saturation 06/29/21 06/29/21 06/29/21 02:20 02:25 02:30 Temperature Heart Rate 78 77 76 Heart Rate [ Monitoring electrodes] Respiratory 15 19 Rate Blood Pressure Blood Pressure [Left Brachial artery] O2 Saturation 06/29/21 06/29/21 06/29/21 02:35 02:40 02:45 Temperature Heart Rate 82 81 73 Heart Rate [ Monitoring electrodes] Respiratory 20 11 L 18 Rate Blood Pressure Blood Pressure [Left Brachial artery] O2 Saturation 06/29/21 06/29/21 06/29/21 02:50 02:55 02:59 Temperature Heart Rate 78 73 Heart Rate [ 73 Monitoring electrodes] Respiratory 15 20 21 Rate Blood Pressure Blood Pressure 110/47 L [Left Brachial artery] O2 Saturation 98 06/29/21 06/29/21 06/29/21 03:00 03:01 03:05 Temperature Heart Rate 79 82 70 Heart Rate [ Monitoring electrodes] Respiratory 15 18 19 Rate Blood Pressure 110/47 L Blood Pressure [Left Brachial artery] O2 Saturation 06/29/21 06/29/21 06/29/21 03:10 03:15 03:20 Temperature Heart Rate 79 75 75 Heart Rate [ Monitoring electrodes] Respiratory 20 20 21 Rate Blood Pressure Blood Pressure [Left Brachial artery] O2 Saturation 06/29/21 06/29/21 06/29/21 03:25 03:30 03:35 Temperature Heart Rate 86 78 70 Heart Rate [ Monitoring electrodes] Respiratory 17 19 21 Rate Blood Pressure Blood Pressure [Left Brachial artery] O2 Saturation 06/29/21 06/29/21 06/29/21 03:40 03:45 03:50 Temperature Heart Rate 80 81 70 Heart Rate [ Monitoring electrodes] Respiratory 18 15 21 Rate Blood Pressure Blood Pressure [Left Brachial artery] O2 Saturation 06/29/21 06/29/21 06/29/21 03:55 04:00 04:01 Temperature Heart Rate 70 78 79 Heart Rate [ Monitoring electrodes] Respiratory 19 13 19 Rate Blood Pressure 102/52 L Blood Pressure [Left Brachial artery] O2 Saturation 06/29/21 06/29/21 06/29/21 04:05 04:10 04:15 Temperature Heart Rate 71 87 77 Heart Rate [ Monitoring electrodes] Respiratory 20 11 L 17 Rate Blood Pressure Blood Pressure [Left Brachial artery] O2 Saturation 06/29/21 06/29/21 06/29/21 04:20 04:25 04:30 Temperature Heart Rate 94 85 80 Heart Rate [ 82 Monitoring electrodes] Respiratory 19 15 17 Rate Blood Pressure Blood Pressure 102/52 L [Left Brachial artery] O2 Saturation 96 06/29/21 06/29/21 06/29/21 04:35 04:40 04:45 Temperature Heart Rate 80 88 87 Heart Rate [ Monitoring electrodes] Respiratory 6 L 15 18 Rate Blood Pressure Blood Pressure [Left Brachial artery] O2 Saturation 1006/29/21 06/29/21 04:50 04:55 05:00 Temperature Heart Rate 83 79 83 Heart Rate [ Monitoring electrodes] Respiratory 0 L 21 20 Rate Blood Pressure Blood Pressure [Left Brachial artery] O2 Saturation 06/29/21 06/29/21 06/29/21 05:01 05:05 05:10 Temperature Heart Rate 81 83 81 Heart Rate [ Monitoring electrodes] Respiratory 21 21 21 Rate Blood Pressure 120/53 L Blood Pressure [Left Brachial artery] O2 Saturation 06/29/21 06/29/21 06/29/21 05:11 05:15 05:20 Temperature Heart Rate 80 82 Heart Rate [ 76 Monitoring electrodes] Respiratory 21 21 21 Rate Blood Pressure Blood Pressure 120/53 L [Left Brachial artery] O2 Saturation 97 06/29/21 06/29/21 06/29/21 05:25 05:30 05:35 Temperature Heart Rate 80 86 79 Heart Rate [ Monitoring electrodes] Respiratory 21 24 19 Rate Blood Pressure Blood Pressure [Left Brachial artery] O2 Saturation 06/29/21 06/29/21 06/29/21 05:40 05:45 06:00 Temperature Heart Rate 81 78 Heart Rate [ 75 Monitoring electrodes] Respiratory 21 20 21 Rate Blood Pressure Blood Pressure 139/47 H [Left Brachial artery] O2 Saturation 98 06/29/21 07:00 Temperature Heart Rate Heart Rate [ 85 Monitoring electrodes] Respiratory 22 Rate Blood Pressure Blood Pressure 112/55 L [Left Brachial artery] O2 Saturation 99 Oxygen O2 Source Room air I&O (Last 24 Hrs): Intake and Output Totals x24h 06/27/21 06/28/21 06/29/21 23:59 23:59 23:59 Intake Total 1100 Output Total 1350 765 Balance -1350 335 General: Alert, Cooperative, No acute distress HEENT: Atraumatic Neck: Supple Lymphatic: no adenopathy Neuro: Alert, Non Focal Cardiovascular: Regular rate, Normal S1, Normal S2 Respiratory: Chest non-tender, No respiratory distress Abdomen: Normal bowel sounds, Soft Extremities: Normal pulses - Results Results: Laboratory Results WBC 8.6 x10^3/uL (4.8-10.8) 06/29/21 04:32 RBC 4.09 10^6/uL (4.70-6.10) L 06/29/21 04:32 Hgb 13.7 g/dL (14.0-18.0) L 06/29/21 04:32 Hct 41.0 % (42.0-52.0) L 06/29/21 04:32 MCV 100.2 fL (80.0-94.0) H 06/29/21 04:32 MCH 33.5 pg (27.0-31.0) H 06/29/21 04:32 MCHC 33.4 g/dL (32.0-36.0) 06/29/21 04:32 RDW 14.3 % (12.0-15.0) 06/29/21 04:32 Plt Count 202 10^3/uL (130-450) 06/29/21 04:32 MPV 10.3 fL (7.4-11.4) 06/29/21 04:32 Neut # (Auto) Not Reportable 06/29/21 04:32 Lymph # (Auto) Not Reportable 06/29/21 04:32 [place] # (Auto) Not Reportable 06/29/21 04:32 Eos # (Auto) Not Reportable 06/29/21 04:32 Baso # (Auto) Not Reportable 06/29/21 04:32 Absolute Nucleated RBC Not Reportable 06/29/21 04:32 Total Counted 100 06/29/21 04:32 Band Neuts % (Manual) 11 % (0-10) H 06/29/21 04:32 Abnorm Lymph % (Manual) 0 % 06/29/21 04:32 Nucleated RBC % Not Reportable 06/29/21 04:32 Neutrophils # (Manual) 5.6 10^3/uL (1.5-6.6) 06/29/21 04:32 Lymphocytes # (Manual) 2.7 10^3/uL (1.5-3.5) 06/29/21 04:32 Monocytes # (Manual) 0.3 10^3/uL (0.0-1.0) 06/29/21 04:32 Eosinophils # (Manual) 0.0 10^3/uL (0-0.7) 06/29/21 04:32 Basophils # (Manual) 0.0 10^3/uL (0-0.1) 06/29/21 04:32 Differential Comment MANUAL DIFFERENTIAL 06/29/21 04:32 Platelet Estimate NORMAL (130-450,000) (NORMAL) 06/29/21 04:32 RBC Morph Micro Appear NORMAL APPEARANCE (NORMAL) 06/29/21 04:32 Sodium 139 mmol/L (135-145) 06/29/21 04:32 Potassium 4.2 mmol/L (3.5-5.0) 06/29/21 04:32 Chloride 102 mmol/L (101-111) 06/29/21 04:32 Carbon Dioxide 25 mmol/L (21-32) 06/29/21 04:32 Anion Gap 12.0 (6-13) 06/29/21 04:32 BUN 22 mg/dL (6-20) H 06/29/21 04:32 Creatinine 1.0 mg/dL (0.6-1.2) 06/29/21 04:32 Estimated GFR (MDRD) 72 (>89) L 06/29/21 04:32 Glucose 112 mg/dL (70-100) H 06/29/21 04:32 Calcium 8.6 mg/dL (8.5-10.3) 06/29/21 04:32 Total Bilirubin 1.0 mg/dL (0.2-1.0) 06/29/21 04:32 AST 32 IU/L (10-42) 06/29/21 04:32 ALT 20 IU/L (10-60) 06/29/21 04:32 Alkaline Phosphatase 28 IU/L (42-121) L 06/29/21 04:32 Troponin I High Sens 16.5 ng/L (2.3-19.7) 06/29/21 04:32 Total Protein 6.8 g/dL (6.7-8.2) 06/29/21 04:32 Albumin 3.4 g/dL (3.2-5.5) 06/29/21 04:32 Globulin 3.4 g/dL (2.1-4.2) 06/29/21 04:32 Albumin/Globulin Ratio 1.0 (1.0-2.2) 06/29/21 04:32 Lipase 40 U/L (22-51) 06/28/21 15:36 Urine Color YELLOW 06/28/21 15:47 Urine Clarity CLEAR (CLEAR) 06/28/21 15:47 Urine pH 5.5 PH (5.0-7.5) 06/28/21 15:47 Ur Specific [place] >=1.030 (1.002-1.030) H 06/28/21 15:47 Urine Protein TRACE mg/dL (NEGATIVE) 06/28/21 15:47 Urine Glucose (UA) NEGATIVE mg/dL (NEGATIVE) 06/28/21 15:47 Urine Ketones NEGATIVE mg/dL (NEGATIVE) 06/28/21 15:47 Urine Occult Blood NEGATIVE (NEGATIVE) 06/28/21 15:47 Urine Nitrite NEGATIVE (NEGATIVE) 06/28/21 15:47 Urine Bilirubin NEGATIVE (NEGATIVE) 06/28/21 15:47 Urine Urobilinogen 0.2 (NORMAL) E.U./dL (NORMAL) 06/28/21 15:47 Ur Leukocyte Esterase NEGATIVE (NEGATIVE) 06/28/21 15:47 Ur Microscopic Review NOT INDICATED 06/28/21 15:47 Urine Culture Comments NOT INDICATED 06/28/21 15:47 Nasal Screen MRSA (PCR) NEGATIVE (NEGATIVE) 06/28/21 22:35 ABX Reporting Has patient been on IV antibiotics over the past 48 hours?: Yes Current Medications - Current Medications Current Medications: Active Medications Benzocaine/Butamben/Tetracaine HCl (Benzocaine/Tetracaine/Butamben 20 Gm) 1 sprays MM DAILY PRN PRN Reason: Throat Pain Enoxaparin Sodium (Enoxaparin 40 Mg/0.4 Ml Syringe) 40 mg SUBQ DAILY JUAQUIN Hydromorphone HCl (Hydromorphone 0.5 Mg/0.5 Ml Syringe) 0.5 mg IVP Q2H PRN PRN Reason: PAIN Sodium Chloride (Normal Saline 0.9%) 1,000 mls @ 100 mls/hr IV .Q10H [facility] Last Admin: 06/29/21 11:09 Dose: 100 mls/hr Documented by: Cefazolin Sodium 2 gm/ Sodium (Chloride) 100 mls @ 200 mls/hr IV Q8H JUAQUIN Stop: 06/29/21 12:29 Last Admin: 06/29/21 11:09 Dose: 200 mls/hr Documented by: Acetaminophen (Ofirmev) 100 mls @ 400 mls/hr IV Q6HR PRN PRN Reason: PAIN Stop: 06/30/21 21:59 Insulin Human Regular (Insulin Regular Human 300 Unit/3 Ml Vial) 1 - 5 unit SUBQ Q6HR [facility]; Protocol Last Admin: 06/29/21 06:15 Dose: Not Given Documented by: Ondansetron HCl (Ondansetron 4 Mg/2 Ml Vial) 4 mg IVP Q6H PRN PRN Reason: Nausea / Vomiting Pantoprazole Sodium (Pantoprazole 40 Mg Vial) 40 mg IVP QDAC [facility] Last Admin: 06/29/21 06:20 Dose: 40 mg Documented by: Sodium Chloride (Sodium Chloride Flush 0.9% 10 Ml Syringe) 10 ml IVP 0100,0900,1700 [facility] Last Admin: 06/29/21 06:20 Dose: 10 ml Documented by: Sodium Chloride (Sodium Chloride Flush 0.9% 10 Ml Syringe) 10 ml IVP PRN PRN PRN Reason: NEEDED PER PROVIDER ORDERS Atorvastatin [Lipitor] 40 mg PO DAILY 06/28/21
[2021-06-29 11:56] LABS: ESTIMATED AVERAGE GLUCOSE 123 mg/dL (70-100); HEMOGLOBIN A1c% 5.9 % (4.27-6.07)
--- NOTE | 2021-06-29 12:26 | PROVIDER PROGRESS NOTE ---
Subjective - Prog Note Date Prog Note Date: 06/29/21 - Subjective Pt reports feeling: Improved (appears very well. no complaints) Objective - Vital Signs/Intake & Output Reviewed Vital Signs: Yes Vital Signs: Vital Signs x48h Pulse Pulse Resp BP BP Pulse Ox 06/29/21 07:00 85 22 112/55 L 99 06/29/21 06:00 75 21 139/47 H 98 06/29/21 05:45 78 20 06/29/21 05:40 81 21 06/29/21 05:35 79 19 06/29/21 05:30 86 24 06/29/21 05:25 80 21 06/29/21 05:20 82 21 06/29/21 05:15 80 21 06/29/21 05:11 76 21 120/53 L 97 06/29/21 05:10 81 21 06/29/21 05:05 83 21 06/29/21 05:01 81 21 120/53 L 06/29/21 05:00 83 20 06/29/21 04:55 79 21 06/29/21 04:50 83 0 L 06/29/21 04:45 87 18 06/29/21 04:40 88 15 06/29/21 04:35 80 6 L 06/29/21 04:30 80 82 17 102/52 L 96 06/29/21 04:25 85 15 Intake & Output: Intake & Output 06/26/21 06/27/21 06/28/21 06/29/21 23:59 23:59 23:59 23:59 Intake Total 1100 Output Total 1350 765 Balance -1350 335 - Objective General Appearance: positive: No acute distress, Alert Eyes Bilateral: positive: PERRL, EOMI ENT: positive: No signs of dehydration Neck: positive: No JVD Respiratory: positive: No respiratory distress Abdomen: positive: Non-tender, No distention, Other (pink stoma) Neurologic/Psychiatric: positive: Other (alert and cooperative) - Lab Results Fish Bones: 06/29/21 04:32 06/29/21 04:32 Other Labs: Lab Results x24hrs 06/29/21 06/29/21 06/29/21 Range/Units 04:32 04:32 04:32 WBC (4.8-10.8) x10^3/uL RBC (4.70-6.10) 10^6/uL Hgb (14.0-18.0) g/dL Hct (42.0-52.0) % MCV (80.0-94.0) fL MCH (27.0-31.0) pg MCHC (32.0-36.0) g/dL RDW (12.0-15.0) % Plt Count (130-450) 10^3/uL MPV (7.4-11.4) fL Neut # (Auto) (1.5-6.6) 10^3/uL Lymph # (Auto) (1.5-3.5) 10^3/uL [place] # (Auto) (0.0-1.0) 10^3/uL Eos # (Auto) (0.0-0.7) 10^3/uL Baso # (Auto) (0.0-0.1) 10^3/uL Absolute Nucleated RBC x10^3/uL Total Counted Band Neuts % (Manual) (0 - 10) % Abnorm Lymph % (Manual) % Nucleated RBC % /100WBC Neutrophils # (Manual) (1.5-6.6) 10^3/uL Lymphocytes # (Manual) (1.5-3.5) 10^3/uL Monocytes # (Manual) (0.0-1.0) 10^3/uL Eosinophils # (Manual) (0-0.7) 10^3/uL Basophils # (Manual) (0-0.1) 10^3/uL Differential Comment Platelet Estimate (NORMAL) RBC Morph Micro Appear (NORMAL) Sodium 139 (135-145) mmol/L Potassium 4.2 (3.5-5.0) mmol/L Chloride 102 (101-111) mmol/L Carbon Dioxide 25 (21-32) mmol/L Anion Gap 12.0 (6-13) BUN 22 H (6-20) mg/dL Creatinine 1.0 (0.6-1.2) mg/dL Estimated GFR (MDRD) 72 L (>89) Glucose 112 H (70-100) mg/dL Estimat Average Glucose 123 H (70-100) mg/dL Hemoglobin A1c % 5.9 (4.27-6.07) % Calcium 8.6 (8.5-10.3) mg/dL Total Bilirubin 1.0 (0.2-1.0) mg/dL AST 32 (10-42) IU/L ALT 20 (10-60) IU/L Alkaline Phosphatase 28 L (42-121) IU/L Troponin I High Sens 16.5 (2.3-19.7) ng/L Total Protein 6.8 (6.7-8.2) g/dL Albumin 3.4 (3.2-5.5) g/dL Globulin 3.4 (2.1-4.2) g/dL Albumin/Globulin Ratio 1.0 (1.0-2.2) Lipase (22-51) U/L Urine Color Urine Clarity (CLEAR) Urine pH (5.0-7.5) PH Ur Specific [place] (1.002-1.030) Urine Protein (NEGATIVE) mg/dL Urine Glucose (UA) (NEGATIVE) mg/dL Urine Ketones (NEGATIVE) mg/dL Urine Occult Blood (NEGATIVE) Urine Nitrite (NEGATIVE) Urine Bilirubin (NEGATIVE) Urine Urobilinogen (NORMAL) E.U./dL Ur Leukocyte Esterase (NEGATIVE) Ur Microscopic Review Urine Culture Comments Nasal Screen MRSA (PCR) (NEGATIVE) 06/29/21 06/28/21 06/28/21 Range/Units 04:32 22:35 15:47 WBC 8.6 (4.8-10.8) x10^3/uL RBC 4.09 L (4.70-6.10) 10^6/uL Hgb 13.7 L (14.0-18.0) g/dL Hct 41.0 L (42.0-52.0) % MCV 100.2 H (80.0-94.0) fL MCH 33.5 H (27.0-31.0) pg MCHC 33.4 (32.0-36.0) g/dL RDW 14.3 (12.0-15.0) % Plt Count 202 (130-450) 10^3/uL MPV 10.3 (7.4-11.4) fL Neut # (Auto) Not Reportable (1.5-6.6) 10^3/uL Lymph # (Auto) Not Reportable (1.5-3.5) 10^3/uL [place] # (Auto) Not Reportable (0.0-1.0) 10^3/uL Eos # (Auto) Not Reportable (0.0-0.7) 10^3/uL Baso # (Auto) Not Reportable (0.0-0.1) 10^3/uL Absolute Nucleated RBC Not Reportable x10^3/uL Total Counted 100 Band Neuts % (Manual) 11 H (0 - 10) % Abnorm Lymph % (Manual) 0 % Nucleated RBC % Not Reportable /100WBC Neutrophils # (Manual) 5.6 (1.5-6.6) 10^3/uL Lymphocytes # (Manual) 2.7 (1.5-3.5) 10^3/uL Monocytes # (Manual) 0.3 (0.0-1.0) 10^3/uL Eosinophils # (Manual) 0.0 (0-0.7) 10^3/uL Basophils # (Manual) 0.0 (0-0.1) 10^3/uL Differential Comment MANUAL DIFFERENTIAL Platelet Estimate NORMAL (130-450,000) (NORMAL) RBC Morph Micro Appear NORMAL APPEARANCE (NORMAL) Sodium (135-145) mmol/L Potassium (3.5-5.0) mmol/L Chloride (101-111) mmol/L Carbon Dioxide (21-32) mmol/L Anion Gap (6-13) BUN (6-20) mg/dL Creatinine (0.6-1.2) mg/dL Estimated GFR (MDRD) (>89) Glucose (70-100) mg/dL Estimat Average Glucose (70-100) mg/dL Hemoglobin A1c % (4.27-6.07) % Calcium (8.5-10.3) mg/dL Total Bilirubin (0.2-1.0) mg/dL AST (10-42) IU/L ALT (10-60) IU/L Alkaline Phosphatase (42-121) IU/L Troponin I High Sens (2.3-19.7) ng/L Total Protein (6.7-8.2) g/dL Albumin (3.2-5.5) g/dL Globulin (2.1-4.2) g/dL Albumin/Globulin Ratio (1.0-2.2) Lipase (22-51) U/L Urine Color YELLOW Urine Clarity CLEAR (CLEAR) Urine pH 5.5 (5.0-7.5) PH Ur Specific [place] >=1.030 H (1.002-1.030) Urine Protein TRACE (NEGATIVE) mg/dL Urine Glucose (UA) NEGATIVE (NEGATIVE) mg/dL Urine Ketones NEGATIVE (NEGATIVE) mg/dL Urine Occult Blood NEGATIVE (NEGATIVE) Urine Nitrite NEGATIVE (NEGATIVE) Urine Bilirubin NEGATIVE (NEGATIVE) Urine Urobilinogen 0.2 (NORMAL) (NORMAL) E.U./dL Ur Leukocyte Esterase NEGATIVE (NEGATIVE) Ur Microscopic Review NOT INDICATED Urine Culture Comments NOT INDICATED Nasal Screen MRSA (PCR) NEGATIVE (NEGATIVE) 06/28/21 06/28/21 Range/Units 15:36 15:36 WBC 13.6 H (4.8-10.8) x10^3/uL RBC 4.18 L (4.70-6.10) 10^6/uL Hgb 13.8 L (14.0-18.0) g/dL Hct 40.9 L (42.0-52.0) % MCV 97.8 H (80.0-94.0) fL MCH 33.0 H (27.0-31.0) pg MCHC 33.7 (32.0-36.0) g/dL RDW 14.1 (12.0-15.0) % Plt Count 262 (130-450) 10^3/uL MPV 9.4 (7.4-11.4) fL Neut # (Auto) 10.2 H (1.5-6.6) 10^3/uL Lymph # (Auto) 2.1 (1.5-3.5) 10^3/uL [place] # (Auto) 1.2 H (0.0-1.0) 10^3/uL Eos # (Auto) 0.0 (0.0-0.7) 10^3/uL Baso # (Auto) 0.0 (0.0-0.1) 10^3/uL Absolute Nucleated RBC 0.00 x10^3/uL Total Counted Band Neuts % (Manual) (0 - 10) % Abnorm Lymph % (Manual) % Nucleated RBC % 0.0 /100WBC Neutrophils # (Manual) (1.5-6.6) 10^3/uL Lymphocytes # (Manual) (1.5-3.5) 10^3/uL Monocytes # (Manual) (0.0-1.0) 10^3/uL Eosinophils # (Manual) (0-0.7) 10^3/uL Basophils # (Manual) (0-0.1) 10^3/uL Differential Comment Platelet Estimate (NORMAL) RBC Morph Micro Appear (NORMAL) Sodium 134 L (135-145) mmol/L Potassium 3.6 (3.5-5.0) mmol/L Chloride 98 L (101-111) mmol/L Carbon Dioxide 23 (21-32) mmol/L Anion Gap 13.0 (6-13) BUN 25 H (6-20) mg/dL Creatinine 1.0 (0.6-1.2) mg/dL Estimated GFR (MDRD) 72 L (>89) Glucose 164 H (70-100) mg/dL Estimat Average Glucose (70-100) mg/dL Hemoglobin A1c % (4.27-6.07) % Calcium 9.1 (8.5-10.3) mg/dL Total Bilirubin 1.2 H (0.2-1.0) mg/dL AST 34 (10-42) IU/L ALT 25 (10-60) IU/L Alkaline Phosphatase 30 L (42-121) IU/L Troponin I High Sens (2.3-19.7) ng/L Total Protein 7.4 (6.7-8.2) g/dL Albumin 3.8 (3.2-5.5) g/dL Globulin 3.6 (2.1-4.2) g/dL Albumin/Globulin Ratio 1.1 (1.0-2.2) Lipase 40 (22-51) U/L Urine Color Urine Clarity (CLEAR) Urine pH (5.0-7.5) PH Ur Specific [place] (1.002-1.030) Urine Protein (NEGATIVE) mg/dL Urine Glucose (UA) (NEGATIVE) mg/dL Urine Ketones (NEGATIVE) mg/dL Urine Occult Blood (NEGATIVE) Urine Nitrite (NEGATIVE) Urine Bilirubin (NEGATIVE) Urine Urobilinogen (NORMAL) E.U./dL Ur Leukocyte Esterase (NEGATIVE) Ur Microscopic Review Urine Culture Comments Nasal Screen MRSA (PCR) (NEGATIVE) Assessment/Plan - Problem List (1) Volvulus of colon Impression: doing very well post op day one diet sips ok continue present care
[2021-06-29] MEDS: SODIUM CHLORIDE FLUSH 0.9% 10 ML SYRINGE IVP PRN (23:42)
[2021-06-30] MEDS: INSULIN REGULAR HUMAN 300 UNIT/3 ML VIAL SUBQ SCH ×4 (00:03→17:41)
[2021-06-30 01:02] LABS: B. PARAPERTUSSIS- RESP PCR PAN NOT DETECTED; B. PERTUSSIS- RESP PCR PANEL NOT DETECTED; C. PNEUMONIAE- RESP PCR PANEL NOT DETECTED; CORONAVIRUS 229E-RESP PCR NOT DETECTED; CORONAVIRUS HKU1-RESP PCR NOT DETECTED; CORONAVIRUS NL63-RESP PCR NOT DETECTED; CORONAVIRUS OC43-RESP PCR NOT DETECTED; HUMAN METAPNEUMOVIRUS NOT DETECTED; INFLUENZA A- RESP PCR PANEL NOT DETECTED; INFLUENZA B - RESP PCR PANEL NOT DETECTED; M. PNEUMONIAE- RESP PCR PANEL NOT DETECTED; PARAINFLUENZA VIRUS 1 NOT DETECTED; PARAINFLUENZA VIRUS 2 NOT DETECTED; PARAINFLUENZA VIRUS 3 NOT DETECTED; PARAINFLUENZA VIRUS 4 NOT DETECTED; RHINOVIRUS/ENTEROVIRUS NOT DETECTED; RSV- RESP PCR PANEL NOT DETECTED; SARS-CoV-2 -RESP PCR PANEL NOT DETECTED
[2021-06-30] MEDS: SODIUM CHLORIDE FLUSH 0.9% 10 ML SYRINGE IVP SCH ×3 (01:11→17:41)
[2021-06-30 05:59] LABS: BASOPHILS % (AUTO) 0.3 %; EOSINOPHILS % (AUTO) 1.6 %; HCT - HEMATOCRIT 41.6 % (42.0-52.0); HGB - HEMOGLOBIN 13.4 g/dL (14.0-18.0); LYMPHOCYTES % (AUTO) 10.1 %; MEAN CORPUSCULAR HEMOGLOBIN 33.6 pg (27.0-31.0); MEAN CORPUSCULAR HGB CONC 32.2 g/dL (32.0-36.0); MEAN CORPUSCULAR VOLUME 104.3 fL (80.0-94.0); MEAN PLATELET VOLUME 10.7 fL (7.4-11.4); MONOCYTES % (AUTO) 3.2 %; NEUTROPHILS % (AUTO) 84.4 %; PLT - PLATELET COUNT 156 10^3/uL (130-450); RED BLOOD COUNT 3.99 10^6/uL (4.70-6.10); RED CELL DISTRIBUTION WIDTH 14.4 % (12.0-15.0); WHITE BLOOD COUNT 10.1 x10^3/uL (4.8-10.8)
[2021-06-30 06:09] LABS: ABNORMAL LYMPHS % (MANUAL) 0 %
[2021-06-30] MEDS: PANTOPRAZOLE 40 MG VIAL IVP SCH (06:09)
[2021-06-30] MEDS: SODIUM CHLORIDE FLUSH 0.9% 10 ML SYRINGE IVP PRN (06:09)
[2021-06-30 06:17] LABS: ALBUMIN 2.9 g/dL (3.2-5.5); ALBUMIN/GLOBULIN RATIO 0.9 (1.0-2.2); CREATININE 1.1 mg/dL (0.6-1.2); POTASSIUM 3.9 mmol/L (3.5-5.0); TOTAL PROTEIN 6.2 g/dL (6.7-8.2)
[2021-06-30 06:27] LABS: BAND NEUTROPHILS % (MANUAL) 4 %; DIFFERENTIAL COMMENT MANUAL DIFFERENTIAL; EOSINOPHILS # (MANUAL) 0.3 10^3/uL (0-0.7); LYMPHOCYTES # (MANUAL) 1.3 10^3/uL (1.5-3.5); LYMPHOCYTES % (MANUAL) 13 %; MONOCYTES # (MANUAL) 0.2 10^3/uL (0.0-1.0); NEUTROPHILS # (MANUAL) 8.3 10^3/uL (1.5-6.6); PLATELET ESTIMATE, MANUAL NORMAL (130-450,000) (NORMAL); RBC MORPHOLOGY (MULTIPLE) NORMAL APPEARANCE (NORMAL)
--- NOTE | 2021-06-30 07:39 | PROVIDER PROGRESS NOTE ---
Subjective - Prog Note Date Prog Note Date: 06/30/21 - Subjective Pt reports feeling: Improved Objective - Vital Signs/Intake & Output Reviewed Vital Signs: Yes Vital Signs: Vital Signs x48h Temp Pulse Resp BP Pulse Ox 06/30/21 06:59 93 26 H 102/51 L 94 06/30/21 06:00 87 23 116/49 L 95 06/30/21 05:00 79 25 H 105/49 L 94 06/30/21 04:00 98 24 133/51 H 95 06/30/21 03:00 36.7 C 91 26 H 132/53 H 94 06/30/21 02:00 78 7 L 128/51 L 94 06/30/21 01:00 90 17 147/59 H 95 06/30/21 00:00 92 17 100/81 H 94 06/29/21 23:43 37.1 C Intake & Output: Intake & Output 06/27/21 06/28/21 06/29/21 06/30/21 23:59 23:59 23:59 23:59 Intake Total 2328.333 800 Output Total 1350 1365 405 Balance -1350 963.333 395 - Objective General Appearance: positive: Alert Eyes Bilateral: positive: PERRL, EOMI Respiratory: positive: No respiratory distress Abdomen: positive: Non-tender, No distention, Other (functional pink stoma) Neurologic/Psychiatric: positive: Other (alert. cooperative) - Lab Results Fish Bones: 06/30/21 04:25 06/30/21 04:25 Other Labs: Lab Results x24hrs 06/30/21 06/30/21 06/29/21 Range/Units 04:25 04:25 23:55 WBC 10.1 (4.8-10.8) x10^3/uL RBC 3.99 L (4.70-6.10) 10^6/uL Hgb 13.4 L (14.0-18.0) g/dL Hct 41.6 L (42.0-52.0) % MCV 104.3 H (80.0-94.0) fL MCH 33.6 H (27.0-31.0) pg MCHC 32.2 (32.0-36.0) g/dL RDW 14.4 (12.0-15.0) % Plt Count 156 (130-450) 10^3/uL MPV 10.7 (7.4-11.4) fL Neut # (Auto) Not Reportable Lymph # (Auto) Not Reportable [place] # (Auto) Not Reportable Eos # (Auto) Not Reportable Baso # (Auto) Not Reportable Absolute Nucleated RBC Not Reportable Total Counted 100 Band Neuts % (Manual) 4 (0 - 10) % Abnorm Lymph % (Manual) 0 % Nucleated RBC % Not Reportable Neutrophils # (Manual) 8.3 H (1.5-6.6) 10^3/uL Lymphocytes # (Manual) 1.3 L (1.5-3.5) 10^3/uL Monocytes # (Manual) 0.2 (0.0-1.0) 10^3/uL Eosinophils # (Manual) 0.3 (0-0.7) 10^3/uL Basophils # (Manual) 0.0 (0-0.1) 10^3/uL Differential Comment MANUAL DIFFERENTIAL Platelet Estimate NORMAL (130-450,000) (NORMAL) RBC Morph Micro Appear NORMAL APPEARANCE (NORMAL) Sodium 138 (135-145) mmol/L Potassium 3.9 (3.5-5.0) mmol/L Chloride 106 (101-111) mmol/L Carbon Dioxide 22 (21-32) mmol/L Anion Gap 10.0 (6-13) BUN 19 (6-20) mg/dL Creatinine 1.1 (0.6-1.2) mg/dL Estimated GFR (MDRD) 64 L (>89) Glucose 76 (70-100) mg/dL Estimat Average Glucose (70-100) mg/dL Hemoglobin A1c % (4.27-6.07) % Calcium 8.0 L (8.5-10.3) mg/dL Total Bilirubin 1.0 (0.2-1.0) mg/dL AST 323 H (10-42) IU/L ALT 175 H (10-60) IU/L Alkaline Phosphatase 32 L (42-121) IU/L Troponin I High Sens (2.3-19.7) ng/L Total Protein 6.2 L (6.7-8.2) g/dL Albumin 2.9 L (3.2-5.5) g/dL Globulin 3.3 (2.1-4.2) g/dL Albumin/Globulin Ratio 0.9 L (1.0-2.2) Nasal Adenovirus (PCR) NOT DETECTED Nasal B. parapertussis DNA (PCR) NOT DETECTED Nasal Coronavir 229E PCR NOT DETECTED Nasal Coronavir HKU1 PCR NOT DETECTED Nasal Coronavir NL63 PCR NOT DETECTED Nasal Coronavir OC43 PCR NOT DETECTED Nasal Enterovir/Rhinovir PCR NOT DETECTED Nasal Influenza B PCR NOT DETECTED Nasal Influenza A PCR NOT DETECTED Nasal Parainfluen 1 PCR NOT DETECTED Nasal Parainfluen 2 PCR NOT DETECTED Nasal Parainfluen 3 PCR NOT DETECTED Nasal Parainfluen 4 PCR NOT DETECTED Nasal RSV (PCR) NOT DETECTED Nasal B.pertussis DNA PCR NOT DETECTED Nasal C.pneumoniae (PCR) NOT DETECTED Chris Human Metapneumo PCR NOT DETECTED Nasal M.pneumoniae (PCR) NOT DETECTED Nasal SARS-CoV-2 (PCR) NOT DETECTED 06/29/21 06/28/21 Range/Units 04:32 15:39 WBC (4.8-10.8) x10^3/uL RBC (4.70-6.10) 10^6/uL Hgb (14.0-18.0) g/dL Hct (42.0-52.0) % MCV (80.0-94.0) fL MCH (27.0-31.0) pg MCHC (32.0-36.0) g/dL RDW (12.0-15.0) % Plt Count (130-450) 10^3/uL MPV (7.4-11.4) fL Neut # (Auto) Lymph # (Auto) [place] # (Auto) Eos # (Auto) Baso # (Auto) Absolute Nucleated RBC Total Counted Band Neuts % (Manual) (0 - 10) % Abnorm Lymph % (Manual) % Nucleated RBC % Neutrophils # (Manual) (1.5-6.6) 10^3/uL Lymphocytes # (Manual) (1.5-3.5) 10^3/uL Monocytes # (Manual) (0.0-1.0) 10^3/uL Eosinophils # (Manual) (0-0.7) 10^3/uL Basophils # (Manual) (0-0.1) 10^3/uL Differential Comment Platelet Estimate (NORMAL) RBC Morph Micro Appear (NORMAL) Sodium (135-145) mmol/L Potassium (3.5-5.0) mmol/L Chloride (101-111) mmol/L Carbon Dioxide (21-32) mmol/L Anion Gap (6-13) BUN (6-20) mg/dL Creatinine (0.6-1.2) mg/dL Estimated GFR (MDRD) (>89) Glucose (70-100) mg/dL Estimat Average Glucose 123 H (70-100) mg/dL Hemoglobin A1c % 5.9 (4.27-6.07) % Calcium (8.5-10.3) mg/dL Total Bilirubin (0.2-1.0) mg/dL AST (10-42) IU/L ALT (10-60) IU/L Alkaline Phosphatase (42-121) IU/L Troponin I High Sens 17.2 (2.3-19.7) ng/L Total Protein (6.7-8.2) g/dL Albumin (3.2-5.5) g/dL Globulin (2.1-4.2) g/dL Albumin/Globulin Ratio (1.0-2.2) Nasal Adenovirus (PCR) Nasal B. parapertussis DNA (PCR) Nasal Coronavir 229E PCR Nasal Coronavir HKU1 PCR Nasal Coronavir NL63 PCR Nasal Coronavir OC43 PCR Nasal Enterovir/Rhinovir PCR Nasal Influenza B PCR Nasal Influenza A PCR Nasal Parainfluen 1 PCR Nasal Parainfluen 2 PCR Nasal Parainfluen 3 PCR Nasal Parainfluen 4 PCR Nasal RSV (PCR) Nasal B.pertussis DNA PCR Nasal C.pneumoniae (PCR) Chris Human Metapneumo PCR Nasal M.pneumoniae (PCR) Nasal SARS-CoV-2 (PCR) Assessment/Plan - Problem List (1) Volvulus of colon Impression: doing very well. diet full liquids d/c rai pod 2 decrease ivf to 50 start daily dressing changes tomorrow d/c planning
[2021-06-30] MEDS: SODIUM CHLORIDE 0.9% 1,000 ML IV SCH (08:05)
[2021-06-30] MEDS: ENOXAPARIN 40 MG/0.4 ML SYRINGE SUBQ SCH (08:09)
[2021-06-30] MEDS: METOPROLOL TARTRATE 25 MG TABLET PO SCH ×2 (09:56→20:39)
[2021-06-30] MEDS: ASPIRIN CHEW 81 MG TABLET PO SCH (09:56)
--- NOTE | 2021-06-30 11:21 | PROVIDER PROGRESS NOTE ---
Assessment/Plan - Problem List (1) Intestinal obstruction Qualifiers: Intestinal obstruction type: volvulus Qualified Code(s): K56.2 - Volvulus Assessment/Plan: 1028, Surgeon started full liquid diet for patient, Patient seems tolerated. He ate whole breakfast. follow-up with surgeon's management S/P day 1. pt has ostomy and Dania's pouch in place. Diet and pain management per general surgery. continue PT Evaluation and treatment, Encourage patient out of bed safely (2) Atrial fibrillation 06-30, Patient develop Atrial fibrillation with RVR at morning again. HR was around 110-120. He denies chest pain Or palpitation but Patient also have history of dementia. This is a recurrent, Patient Developed atrial fibrillation with RVR at surgery operation then he became controlled. we check Troponin, order chest x-ray, Started with metoprolol Since patient's blood pressure can tolerate now. also order aspirin Since the patient has history of advanced dementia, he is high risk of fall. ECHO study show Unremarkable. HR is controlled and stable. it was Only seen in the OR. Troponin is negative, ECHO is pending, continue tele monitor and vital monitor. (3)elevated liver enzyme Patient Had scheduled Tylenol for pain control Which likely cause patient had elevated Liver enzyme. 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 Patient ate whole breakfast and he tolerated diet. 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 she hope d/c to home but She is willing to let him go to a prison facility if he needs physical rehabilitation for short time but wants him to come back home. (5) Diabetes mellitus He does not carry the diagnosis of type 2 diabetes mellitus in the past, Patient has no diabetic medication in his home medication list. will check A1C Check A1c, is pending Sliding scale insulin to adjust depending on his p.o. intake (6) Hypertension stable, Continue vital signs monitor (7) DVT prophylaxis lovenox and SCD (8) Do not resuscitate Per admission provider's note, His daughter states that he has a good quality of life. She thinks if this surgery is successful he can return to that quality of life with a reasonable expectation. However if he were to have a sudden reversal of events and develop a respiratory or cardiac arrest or significant brain injury, he is to be a DO NOT RESUSCITATE. - Current Meds Current Meds: Current Medications Generic Name Dose Route Start Last Admin Trade Name Freq PRN Reason Stop Dose Admin Aspirin 81 mg 06/30/21 10:00 06/30/21 09:56 Aspirin Chew 81 Mg Tablet PO 81 mg DAILY JUAQUIN Administration Enoxaparin Sodium 40 mg 06/30/21 09:00 06/30/21 08:09 Enoxaparin 40 Mg/0.4 Ml Syringe SUBQ 40 mg DAILY JUAQUIN Administration Sodium Chloride 1,000 mls @ 50 mls/hr 06/30/21 07:36 06/30/21 09:00 Normal Saline 0.9% IV 50 mls/hr .Q20H JUAQUIN Infusion Insulin Human Regular 1 - 5 unit 06/29/21 00:00 06/30/21 05:57 Insulin Regular Human 300 Unit/3 Ml Vial SUBQ Not Given Q6HR JUAQUIN Protocol Metoprolol Tartrate 25 mg 06/30/21 09:30 06/30/21 09:56 Metoprolol Tartrate 25 Mg Tablet PO 25 mg BID JUAQUIN Administration Sodium Chloride 10 ml 06/29/21 01:00 06/30/21 08:10 Sodium Chloride Flush 0.9% 10 Ml Syringe IVP 10 ml 0100,0900,1700 JUAQUIN Administration Sodium Chloride 10 ml 06/28/21 22:00 06/30/21 06:09 Sodium Chloride Flush 0.9% 10 Ml Syringe IVP 10 ml PRN PRN Administration NEEDED PER PROVIDER ORDERS - Lab Result Fish Bone Diagrams: 06/30/21 04:25 06/30/21 04:25 - Additional Planning My Orders: My Active Orders 06/29/21 11:04 Out of bed 3+ hours today [RC] TID 06/30/21 09:30 Metoprolol Tartrate [Lopressor] 25 mg PO BID 06/30/21 10:00 Aspirin Chewable [[place] Aspirin] 81 mg PO DAILY 06/30/21 10:24 Chest 1 View X-Ray [XR] Stat Subjective - Subjective Patient Reports: Resting Comfortably, No Complaints Objective Vital Signs: Vital Signs - 24 hr 06/29/21 06/29/21 06/29/21 11:43 11:45 11:50 Temperature Heart Rate 96 93 86 Heart Rate [ Monitoring electrodes] Respiratory 17 13 20 Rate Blood Pressure Blood Pressure [Left Brachial artery] O2 Saturation 06/29/21 06/29/21 06/29/21 11:55 12:00 12:05 Temperature Heart Rate 84 89 87 Heart Rate [ 87 Monitoring electrodes] Respiratory 15 15 22 Rate Blood Pressure Blood Pressure 113/58 L [Left Brachial artery] O2 Saturation 97 06/29/21 06/29/21 06/29/21 12:10 12:15 12:16 Temperature Heart Rate 81 80 85 Heart Rate [ Monitoring electrodes] Respiratory 22 22 18 Rate Blood Pressure 113/58 L Blood Pressure [Left Brachial artery] O2 Saturation 06/29/21 06/29/21 06/29/21 12:20 12:25 12:30 Temperature Heart Rate 88 76 74 Heart Rate [ Monitoring electrodes] Respiratory 23 22 22 Rate Blood Pressure Blood Pressure [Left Brachial artery] O2 Saturation 06/29/21 06/29/21 06/29/21 13:00 14:00 15:00 Temperature 36.5 C Heart Rate Heart Rate [ 80 98 87 Monitoring electrodes] Respiratory 22 15 17 Rate Blood Pressure Blood Pressure 109/48 L 124/64 140/49 H [Left Brachial artery] O2 Saturation 95 97 97 06/29/21 06/29/21 06/29/21 16:00 17:00 18:00 Temperature Heart Rate Heart Rate [ 97 100 102 H Monitoring electrodes] Respiratory 22 26 H 25 H Rate Blood Pressure Blood Pressure 116/74 112/54 L 106/61 [Left Brachial artery] O2 Saturation 95 94 94 06/29/21 06/29/21 06/29/21 19:00 20:00 21:00 Temperature 36.8 C Heart Rate Heart Rate [ 95 91 87 Monitoring electrodes] Respiratory 22 21 12 Rate Blood Pressure Blood Pressure 136/69 H 138/61 H 152/69 H [Left Brachial artery] O2 Saturation 95 93 92 06/29/21 06/29/21 06/29/21 22:00 23:00 23:43 Temperature 37.1 C Heart Rate Heart Rate [ 83 71 Monitoring electrodes] Respiratory 19 21 Rate Blood Pressure Blood Pressure 138/71 H 130/58 L [Left Brachial artery] O2 Saturation 93 94 06/30/21 06/30/21 06/30/21 00:00 01:00 02:00 Temperature Heart Rate Heart Rate [ 92 90 78 Monitoring electrodes] Respiratory 17 17 7 L Rate Blood Pressure Blood Pressure 100/81 H 147/59 H 128/51 L [Left Brachial artery] O2 Saturation 94 95 94 06/30/21 06/30/21 06/30/21 03:00 04:00 05:00 Temperature 36.7 C Heart Rate Heart Rate [ 91 98 79 Monitoring electrodes] Respiratory 26 H 24 25 H Rate Blood Pressure Blood Pressure 132/53 H 133/51 H 105/49 L [Left Brachial artery] O2 Saturation 94 95 94 06/30/21 06/30/21 06/30/21 06:00 06:59 08:00 Temperature 36.3 C L Heart Rate Heart Rate [ 87 93 96 Monitoring electrodes] Respiratory 23 26 H 24 Rate Blood Pressure Blood Pressure 116/49 L 102/51 L 110/78 [Left Brachial artery] O2 Saturation 95 94 93 06/30/21 06/30/21 06/30/21 09:00 09:56 10:00 Temperature Heart Rate Heart Rate [ 123 H 115 H Monitoring electrodes] Respiratory 26 H 25 H Rate Blood Pressure 137/57 H Blood Pressure 95/81 H 115/72 [Left Brachial artery] O2 Saturation 92 98 Oxygen O2 Source Room air I&O (Last 24 Hrs): Intake and Output Totals x24h 06/28/21 06/29/21 06/30/21 23:59 23:59 23:59 Intake Total 2328.333 3285.833 Output Total 1350 1365 595 Balance -1350 461.506 8631.833 General: Alert, Cooperative, No acute distress HEENT: Atraumatic Neck: Supple Lymphatic: no adenopathy Neuro: Alert, Non Focal Cardiovascular: Regular rate, Normal S1, Normal S2 Respiratory: Chest non-tender, No respiratory distress Abdomen: Normal bowel sounds, Soft Extremities: Normal pulses - Results Results: Laboratory Results WBC 10.1 x10^3/uL (4.8-10.8) 06/30/21 04:25 RBC 3.99 10^6/uL (4.70-6.10) L 06/30/21 04:25 Hgb 13.4 g/dL (14.0-18.0) L 06/30/21 04:25 Hct 41.6 % (42.0-52.0) L 06/30/21 04:25 MCV 104.3 fL (80.0-94.0) H 06/30/21 04:25 MCH 33.6 pg (27.0-31.0) H 06/30/21 04:25 MCHC 32.2 g/dL (32.0-36.0) 06/30/21 04:25 RDW 14.4 % (12.0-15.0) 06/30/21 04:25 Plt Count 156 10^3/uL (130-450) 06/30/21 04:25 MPV 10.7 fL (7.4-11.4) 06/30/21 04:25 Neut # (Auto) Not Reportable 06/30/21 04:25 Lymph # (Auto) Not Reportable 06/30/21 04:25 [place] # (Auto) Not Reportable 06/30/21 04:25 Eos # (Auto) Not Reportable 06/30/21 04:25 Baso # (Auto) Not Reportable 06/30/21 04:25 Absolute Nucleated RBC Not Reportable 06/30/21 04:25 Total Counted 100 06/30/21 04:25 Band Neuts % (Manual) 4 % (0-10) 06/30/21 04:25 Abnorm Lymph % (Manual) 0 % 06/30/21 04:25 Nucleated RBC % Not Reportable 06/30/21 04:25 Neutrophils # (Manual) 8.3 10^3/uL (1.5-6.6) H 06/30/21 04:25 Lymphocytes # (Manual) 1.3 10^3/uL (1.5-3.5) L 06/30/21 04:25 Monocytes # (Manual) 0.2 10^3/uL (0.0-1.0) 06/30/21 04:25 Eosinophils # (Manual) 0.3 10^3/uL (0-0.7) 06/30/21 04:25 Basophils # (Manual) 0.0 10^3/uL (0-0.1) 06/30/21 04:25 Differential Comment MANUAL DIFFERENTIAL 06/30/21 04:25 Platelet Estimate NORMAL (130-450,000) (NORMAL) 06/30/21 04:25 RBC Morph Micro Appear NORMAL APPEARANCE (NORMAL) 06/30/21 04:25 Sodium 138 mmol/L (135-145) 06/30/21 04:25 Potassium 3.9 mmol/L (3.5-5.0) 06/30/21 04:25 Chloride 106 mmol/L (101-111) 06/30/21 04:25 Carbon Dioxide 22 mmol/L (21-32) 06/30/21 04:25 Anion Gap 10.0 (6-13) 06/30/21 04:25 BUN 19 mg/dL (6-20) 06/30/21 04:25 Creatinine 1.1 mg/dL (0.6-1.2) 06/30/21 04:25 Estimated GFR (MDRD) 64 (>89) L 06/30/21 04:25 Glucose 76 mg/dL (70-100) 06/30/21 04:25 Estimat Average Glucose 123 mg/dL (70-100) H 06/29/21 04:32 Hemoglobin A1c % 5.9 % (4.27-6.07) 06/29/21 04:32 Calcium 8.0 mg/dL (8.5-10.3) L 06/30/21 04:25 Total Bilirubin 1.0 mg/dL (0.2-1.0) 06/30/21 04:25 AST 323 IU/L (10-42) H 06/30/21 04:25 ALT 175 IU/L (10-60) H 06/30/21 04:25 Alkaline Phosphatase 32 IU/L (42-121) L 06/30/21 04:25 Troponin I High Sens 16.5 ng/L (2.3-19.7) 06/29/21 04:32 Total Protein 6.2 g/dL (6.7-8.2) L 06/30/21 04:25 Albumin 2.9 g/dL (3.2-5.5) L 06/30/21 04:25 Globulin 3.3 g/dL (2.1-4.2) 06/30/21 04:25 Albumin/Globulin Ratio 0.9 (1.0-2.2) L 06/30/21 04:25 Lipase 40 U/L (22-51) 06/28/21 15:36 Vitamin B12 785 pg/mL (180-914) 06/30/21 09:19 Folate 35.00 ng/mL (5.90 - >24.8) 06/30/21 09:19 Urine Color YELLOW 06/28/21 15:47 Urine Clarity CLEAR (CLEAR) 06/28/21 15:47 Urine pH 5.5 PH (5.0-7.5) 06/28/21 15:47 Ur Specific [place] >=1.030 (1.002-1.030) H 06/28/21 15:47 Urine Protein TRACE mg/dL (NEGATIVE) 06/28/21 15:47 Urine Glucose (UA) NEGATIVE mg/dL (NEGATIVE) 06/28/21 15:47 Urine Ketones NEGATIVE mg/dL (NEGATIVE) 06/28/21 15:47 Urine Occult Blood NEGATIVE (NEGATIVE) 06/28/21 15:47 Urine Nitrite NEGATIVE (NEGATIVE) 06/28/21 15:47 Urine Bilirubin NEGATIVE (NEGATIVE) 06/28/21 15:47 Urine Urobilinogen 0.2 (NORMAL) E.U./dL (NORMAL) 06/28/21 15:47 Ur Leukocyte Esterase NEGATIVE (NEGATIVE) 06/28/21 15:47 Ur Microscopic Review NOT INDICATED 06/28/21 15:47 Urine Culture Comments NOT INDICATED 06/28/21 15:47 Nasal Adenovirus (PCR) NOT DETECTED 06/29/21 23:55 Nasal B. parapertussis DNA (PCR) NOT DETECTED 06/29/21 23:55 Nasal Coronavir 229E PCR NOT DETECTED 06/29/21 23:55 Nasal Coronavir HKU1 PCR NOT DETECTED 06/29/21 23:55 Nasal Coronavir NL63 PCR NOT DETECTED 06/29/21 23:55 Nasal Coronavir OC43 PCR NOT DETECTED 06/29/21 23:55 Nasal Enterovir/Rhinovir PCR NOT DETECTED 06/29/21 23:55 Nasal Influenza B PCR NOT DETECTED 06/29/21 23:55 Nasal Influenza A PCR NOT DETECTED 06/29/21 23:55 Nasal Parainfluen 1 PCR NOT DETECTED 06/29/21 23:55 Nasal Parainfluen 2 PCR NOT DETECTED 06/29/21 23:55 Nasal Parainfluen 3 PCR NOT DETECTED 06/29/21 23:55 Nasal Parainfluen 4 PCR NOT DETECTED 06/29/21 23:55 Nasal RSV (PCR) NOT DETECTED 06/29/21 23:55 Nasal Screen MRSA (PCR) NEGATIVE (NEGATIVE) 06/28/21 22:35 Nasal B.pertussis DNA PCR NOT DETECTED 06/29/21 23:55 Nasal C.pneumoniae (PCR) NOT DETECTED 06/29/21 23:55 Chris Human Metapneumo PCR NOT DETECTED 06/29/21 23:55 Nasal M.pneumoniae (PCR) NOT DETECTED 06/29/21 23:55 Nasal SARS-CoV-2 (PCR) NOT DETECTED 06/29/21 23:55 ABX Reporting Has patient been on IV antibiotics over the past 48 hours?: No Current Medications - Current Medications Current Medications: Active Medications Aspirin (Aspirin Chew 81 Mg Tablet) 81 mg PO DAILY [facility] Last Admin: 06/30/21 09:56 Dose: 81 mg Documented by: Benzocaine/Butamben/Tetracaine HCl (Benzocaine/Tetracaine/Butamben 20 Gm) 1 sprays MM DAILY PRN PRN Reason: Throat Pain Enoxaparin Sodium (Enoxaparin 40 Mg/0.4 Ml Syringe) 40 mg SUBQ DAILY [facility] Last Admin: 06/30/21 08:09 Dose: 40 mg Documented by: Hydromorphone HCl (Hydromorphone 0.5 Mg/0.5 Ml Syringe) 0.5 mg IVP Q2H PRN PRN Reason: PAIN Sodium Chloride (Normal Saline 0.9%) 1,000 mls @ 50 mls/hr IV .Q20H [facility] Last Infusion: 06/30/21 09:00 Dose: 50 mls/hr Documented by: Insulin Human Regular (Insulin Regular Human 300 Unit/3 Ml Vial) 1 - 5 unit SUBQ Q6HR [facility]; Protocol Last Admin: 06/30/21 05:57 Dose: Not Given Documented by: Metoprolol Tartrate (Metoprolol Tartrate 25 Mg Tablet) 25 mg PO BID [facility] Last Admin: 06/30/21 09:56 Dose: 25 mg Documented by: Ondansetron HCl (Ondansetron 4 Mg/2 Ml Vial) 4 mg IVP Q6H PRN PRN Reason: Nausea / Vomiting Pantoprazole Sodium (Pantoprazole 40 Mg Tablet) 40 mg PO QDAC [facility] Sodium Chloride (Sodium Chloride Flush 0.9% 10 Ml Syringe) 10 ml IVP 0100,0900,1700 [facility] Last Admin: 06/30/21 08:10 Dose: 10 ml Documented by: Sodium Chloride (Sodium Chloride Flush 0.9% 10 Ml Syringe) 10 ml IVP PRN PRN PRN Reason: NEEDED PER PROVIDER ORDERS Last Admin: 06/30/21 06:09 Dose: 10 ml Documented by: Atorvastatin [Lipitor] 40 mg PO DAILY 06/28/21
--- NOTE | 2021-06-30 11:21 | XRAY Report ---
PROCEDURE: Chest 1 View X-Ray INDICATIONS: sob TECHNIQUE: One view of the chest was acquired. COMPARISON: Chest x-ray 01/03/2021 report only. Images are not available for comparison. FINDINGS: Surgical changes and devices: Tubing is noted coursing the right side of the neck right hemithorax an d right abdomen. Recommend clinical correlation to PROFESSOR OF BIOLOGICAL SCIENCES shunt. Lungs and pleura: There is slight appearance of coarsening within the bases bilaterally. Mediastinum: Mediastinal contours appear normal. Heart size is normal. Bones and chest wall: No suspicious bony lesions. Overlying soft tissues appear unremarkable. IMPRESSION: Slight appearance of bibasilar coarsening. This could represent atelectasis or dependent edema. Howev er, developing areas of pneumonia cannot be excluded. Reviewed by: Geneva Lim MD on 06/30/2021 11:20 AM PDT Approved by: Geneva Lim MD on 06/30/2021 11:20 AM PDT Station ID: [id number]
[2021-07-01] MEDS: SODIUM CHLORIDE FLUSH 0.9% 10 ML SYRINGE IVP SCH ×3 (01:03→18:49)
[2021-07-01] MEDS: SODIUM CHLORIDE 0.9% 1,000 ML IV SCH (01:03)
[2021-07-01 05:31] LABS: BASOPHILS % (AUTO) 0.1 %; EOSINOPHILS # (AUTO) 0.2 10^3/uL (0.0-0.7); EOSINOPHILS % (AUTO) 2.9 %; HCT - HEMATOCRIT 34.6 % (42.0-52.0); HGB - HEMOGLOBIN 11.5 g/dL (14.0-18.0); LYMPHOCYTES # (AUTO) 1.9 10^3/uL (1.5-3.5); LYMPHOCYTES % (AUTO) 22.5 %; MEAN CORPUSCULAR HGB CONC 33.2 g/dL (32.0-36.0); MEAN CORPUSCULAR VOLUME 99.4 fL (80.0-94.0); MEAN PLATELET VOLUME 10.7 fL (7.4-11.4); MONOCYTES # (AUTO) 0.4 10^3/uL (0.0-1.0); MONOCYTES % (AUTO) 4.6 %; NEUTROPHILS # (AUTO) 5.7 10^3/uL (1.5-6.6); NEUTROPHILS % (AUTO) 69.5 %; PLT - PLATELET COUNT 160 10^3/uL (130-450); RED BLOOD COUNT 3.48 10^6/uL (4.70-6.10); RED CELL DISTRIBUTION WIDTH 14.1 % (12.0-15.0); WHITE BLOOD COUNT 8.2 x10^3/uL (4.8-10.8)
[2021-07-01 05:49] LABS: ALBUMIN 2.7 g/dL (3.2-5.5); ALBUMIN/GLOBULIN RATIO 0.9 (1.0-2.2); BILIRUBIN,TOTAL 0.7 mg/dL (0.2-1.0); CALCIUM 7.9 mg/dL (8.5-10.3); TOTAL PROTEIN 5.7 g/dL (6.7-8.2)
[2021-07-01] MEDS: PANTOPRAZOLE 40 MG TABLET PO SCH (06:36)
[2021-07-01] MEDS: ASPIRIN CHEW 81 MG TABLET PO SCH (08:24)
[2021-07-01] MEDS: ENOXAPARIN 40 MG/0.4 ML SYRINGE SUBQ SCH (08:24)
[2021-07-01] MEDS: INSULIN ASPART 300 UNIT/3 ML PEN SUBQ SCH ×2 (08:27→12:10)
[2021-07-01] MEDS ORDERED: oxyCODONE 5 MG TABLET PO PRN (10:19)
--- NOTE | 2021-07-01 10:28 | Ultrasound Report ---
PROCEDURE: Abdomen Limited INDICATIONS: elevated liver enzyme TECHNIQUE: Real-time scanning was performed of the abdominal and retroperitoneal organs, with image documentatio n. COMPARISON: None. FINDINGS: Liver: Liver is normal in size and increased in echotexture. Left lower lobe is not seen secondary to overlying bowel gas. Mild perihepatic fluid is present. Gallbladder: Sludge is noted within the gallbladder. Wall thickness is at the upper limits of normal measuring 3 mm. Biliary ducts: Intrahepatic bile ducts are non-dilated. Extrahepatic bile duct caliber measures 4 m m. Normal is 6-7 mm or less in diameter, or 10 mm or less post-cholecystectomy. Pancreas: Visualized portions of the pancreas are sonographically normal. Kidneys: Right kidney measures 11.1 cm long. No hydronephrosis or nephrolithiasis. No solid paco s. Iliacs: Proximal common iliac arteries are normal in caliber at less than 2.5 cm. IVC: Intrahepatic inferior vena cava is patent. IMPRESSION: Echogenic liver incompletely visualized most consistent with steatosis. 2. Minimal perihepatic fluid. 3. Bladder wall is noted to be thickened at the upper limits of normal with sludge. Recommend clinica l correlation as findings are somewhat nonspecific. This could be loan representative of developing cholec ystitis. However, hepatic disease and other entities can also cause gallbladder wall thickening. Reviewed by: Geneva Lim MD on 07/01/2021 10:27 AM PDT Approved by: Geneva Lim MD on 07/01/2021 10:27 AM PDT Station ID: [id number]
--- NOTE | 2021-07-01 11:41 | PROVIDER PROGRESS NOTE ---
Assessment/Plan - Problem List (1) Intestinal obstruction Qualifiers: Intestinal obstruction type: volvulus Qualified Code(s): K56.2 - Volvulus Assessment/Plan: 07-01 Patient is eating 100% of his breakfast, he denies abdominal pain. He had 800 cc stool in his Ostomy bag On yesterday. We will continue to followup with surgery management. 1027, Surgeon started full liquid diet for patient, Patient seems tolerated. He ate whole breakfast. follow-up with surgeon's management S/P day 1. pt has ostomy and Dania's pouch in place. Diet and pain management per general surgery. continue PT Evaluation and treatment, Encourage patient out of bed safely (2) Atrial fibrillation 07-01 Afib is converted SR on today morning, pt has soft BP, now we hold metoprolol. continue Telemetry and vital signs monitor 06-30, Patient develop Atrial fibrillation with RVR at morning again. HR was around 110-120. He denies chest pain Or palpitation but Patient also have history of dementia. This is a recurrent, Patient Developed atrial fibrillation with RVR at surgery operation then he became controlled. we check Troponin, order chest x-ray, Started with metoprolol Since patient's blood pressure can tolerate now. also order aspirin Since the patient has history of advanced dementia, he is high risk of fall. ECHO study show Unremarkable. HR is controlled and stable. it was Only seen in the OR. Troponin is negative, E CHO is pending, continue tele monitor and vital monitor. (3)elevated liver enzyme 1028, Patient is liver enzyme still slightly elevated, more than yesterday. But total bili is slightly reduced and it is at normal range. We will withhold Tylenol, And statin, we will order ultrasound of abdomen. Patient denies right upper quadrant abdominal pain, patient has no St sign. pt has good appetite, he tolerate diet and without N/V. hold hepatic toxic agent, continue lab mo nitor. Patient Had scheduled Tylenol for pain control Which likely cause patient had elevated Liver enzyme. 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 Patient ate whole breakfast and he tolerated diet. 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 she hope d/c to home but She is willing to let him go to a shelter facility if he needs physical rehabilitation for short time but wants him to come back home. (5) Diabetes mellitus 07-01, A1C is 5.9 but pt show slight lower glucose level, will continue glucose check on today. He does not carry the diagnosis of type 2 diabetes mellitus in the past, Patient has no diabetic medication in his home medication list. will check A1C Check A1c, is pending Sliding scale insulin to adjust depending on his p.o. intake (6) Hypertension stable, Continue vital signs monitor (7) DVT prophylaxis lovenox and SCD (8) Do not resuscitate Per admission provider's note, His daughter states that he has a good quality of life. She thinks if this surgery is successful he can return to that quality of life with a reasonable expectation. However if he were to have a sudden reversal of events and develop a respiratory or cardiac arrest or significant b rain injury, he is to be a DO NOT RESUSCITATE. - Current Meds Current Meds: Current Medications Generic Name Dose Route Start Last Admin Trade Name Freq PRN Reason Stop Dose Admin Aspirin 81 mg 06/30/21 10:00 07/01/21 08:24 Aspirin Chew 81 Mg Tablet PO 81 mg DAILY JUAQUIN Administration Enoxaparin Sodium 40 mg 06/30/21 09:00 07/01/21 08:24 Enoxaparin 40 Mg/0.4 Ml Syringe SUBQ 40 mg DAILY JUAQUIN Administration Hydromorphone HCl 0.5 mg 06/28/21 22:00 06/30/21 20:38 Hydromorphone 0.5 Mg/0.5 Ml Syringe IVP 0.2 mg Q2H PRN Administration PAIN Sodium Chloride 1,000 mls @ 50 mls/hr 06/30/21 07:36 07/01/21 07:51 Normal Saline 0.9% IV 50 mls/hr .Q20H JUAQUIN Infusion Insulin Aspart 1 - 5 unit 07/01/21 08:00 07/01/21 08:27 Insulin Aspart 300 Unit/3 Ml Pen SUBQ Not Given 0800,1200,1700,2100 [facility] Protocol Metoprolol Tartrate 25 mg 06/30/21 09:30 06/30/21 20:39 Metoprolol Tartrate 25 Mg Tablet PO 25 mg BID JUAQUIN Administration Pantoprazole Sodium 40 mg 07/01/21 07:00 07/01/21 06:36 Pantoprazole 40 Mg Tablet PO 40 mg QDAC JUAQUIN Administration Sodium Chloride 10 ml 06/29/21 01:00 07/01/21 01:03 Sodium Chloride Flush 0.9% 10 Ml Syringe IVP 10 ml 0100,0900,1700 JUAQUIN Administration Sodium Chloride 10 ml 06/28/21 22:00 06/30/21 06:09 Sodium Chloride Flush 0.9% 10 Ml Syringe IVP 10 ml PRN PRN Administration NEEDED PER PROVIDER ORDERS - Lab Result Fish Bone Diagrams: 07/01/21 05:22 07/01/21 05:22 - Additional Planning My Orders: My Active Orders 07/01/21 Home Health Referral [CONS] Routine 07/01/21 10:19 oxyCODONE [Roxicodone] 5 mg PO Q4HR PRN Subjective - Subjective Patient Reports: Resting Comfortably, No Complaints Objective Vital Signs: Vital Signs - 24 hr 06/30/21 06/30/21 06/30/21 12:00 13:00 14:00 Temperature 36.4 C L Heart Rate [ 100 73 71 Monitoring electrodes] Respiratory 27 H 23 20 Rate Blood Pressure Blood Pressure 116/60 95/48 L 93/46 L [Left Brachial artery] O2 Saturation 98 98 98 06/30/21 06/30/21 06/30/21 15:00 15:40 16:00 Temperature 37.6 C Heart Rate [ 71 79 Monitoring electrodes] Respiratory 21 20 Rate Blood Pressure Blood Pressure 93/44 L 100/46 L [Left Brachial artery] O2 Saturation 99 100 06/30/21 06/30/21 06/30/21 17:00 18:00 19:00 Temperature 37.1 C Heart Rate [ 80 78 69 Monitoring electrodes] Respiratory 21 26 H 22 Rate Blood Pressure Blood Pressure 100/50 L 109/69 116/52 L [Left Brachial artery] O2 Saturation 99 100 06/30/21 06/30/21 06/30/21 20:00 20:39 21:00 Temperature Heart Rate [ 75 68 Monitoring electrodes] Respiratory 20 23 Rate Blood Pressure 109/49 L Blood Pressure 115/77 94/41 L [Left Brachial artery] O2 Saturation 100 98 06/30/21 06/30/21 06/30/21 22:00 23:00 23:36 Temperature 37.1 C Heart Rate [ 65 64 Monitoring electrodes] Respiratory 22 21 Rate Blood Pressure Blood Pressure 99/44 L 94/45 L [Left Brachial artery] O2 Saturation 99 99 07/01/21 07/01/21 07/01/21 00:00 01:00 02:00 Temperature Heart Rate [ 63 62 60 Monitoring electrodes] Respiratory 22 20 20 Rate Blood Pressure Blood Pressure 104/44 L 91/48 L 97/44 L [Left Brachial artery] O2 Saturation 99 99 99 07/01/21 07/01/21 07/01/21 03:00 04:00 05:00 Temperature 37.1 C Heart Rate [ 67 66 64 Monitoring electrodes] Respiratory 23 20 21 Rate Blood Pressure Blood Pressure 98/53 L 114/53 L 111/47 L [Left Brachial artery] O2 Saturation 98 99 96 07/01/21 07/01/21 07/01/21 06:00 07:00 08:00 Temperature 36.1 C L Heart Rate [ 61 75 75 Monitoring electrodes] Respiratory 21 18 20 Rate Blood Pressure Blood Pressure 113/53 L 111/51 L 117/47 L [Left Brachial artery] O2 Saturation 98 97 91 L 07/01/21 07/01/21 07/01/21 09:00 10:00 11:00 Temperature Heart Rate [ 75 62 63 Monitoring electrodes] Respiratory 21 23 20 Rate Blood Pressure Blood Pressure 93/47 L 97/40 L 101/48 L [Left Brachial artery] O2 Saturation 95 99 98 Oxygen O2 Source Room air I&O (Last 24 Hrs): Intake and Output Totals x24h 06/29/21 06/30/21 07/01/21 23:59 23:59 23:59 Intake Total 2328.333 4805.833 922.5 Output Total 1365 3110 750 Balance 972.434 2169.833 172.5 General: Alert, Cooperative, No acute distress HEENT: Atraumatic Neck: Supple Lymphatic: no adenopathy Neuro: Alert, Non Focal Cardiovascular: Regular rate, Normal S1, Normal S2 Respiratory: Chest non-tender, No respiratory distress Abdomen: Normal bowel sounds, Soft Extremities: Normal pulses - Results Results: Laboratory Results WBC 8.2 x10^3/uL (4.8-10.8) 07/01/21 05:22 RBC 3.48 10^6/uL (4.70-6.10) L 07/01/21 05:22 Hgb 11.5 g/dL (14.0-18.0) L 07/01/21 05:22 Hct 34.6 % (42.0-52.0) L 07/01/21 05:22 MCV 99.4 fL (80.0-94.0) H 07/01/21 05:22 MCH 33.0 pg (27.0-31.0) H 07/01/21 05:22 MCHC 33.2 g/dL (32.0-36.0) 07/01/21 05:22 RDW 14.1 % (12.0-15.0) 07/01/21 05:22 Plt Count 160 10^3/uL (130-450) 07/01/21 05:22 MPV 10.7 fL (7.4-11.4) 07/01/21 05:22 Neut # (Auto) 5.7 10^3/uL (1.5-6.6) 07/01/21 05:22 Lymph # (Auto) 1.9 10^3/uL (1.5-3.5) 07/01/21 05:22 [place] # (Auto) 0.4 10^3/uL (0.0-1.0) 07/01/21 05:22 Eos # (Auto) 0.2 10^3/uL (0.0-0.7) 07/01/21 05:22 Baso # (Auto) 0.0 10^3/uL (0.0-0.1) 07/01/21 05:22 Absolute Nucleated RBC 0.00 x10^3/uL 07/01/21 05:22 Total Counted 100 06/30/21 04:25 Band Neuts % (Manual) 4 % (0-10) 06/30/21 04:25 Abnorm Lymph % (Manual) 0 % 06/30/21 04:25 Nucleated RBC % 0.0 /100WBC 07/01/21 05:22 Neutrophils # (Manual) 8.3 10^3/uL (1.5-6.6) H 06/30/21 04:25 Lymphocytes # (Manual) 1.3 10^3/uL (1.5-3.5) L 06/30/21 04:25 Monocytes # (Manual) 0.2 10^3/uL (0.0-1.0) 06/30/21 04:25 Eosinophils # (Manual) 0.3 10^3/uL (0-0.7) 06/30/21 04:25 Basophils # (Manual) 0.0 10^3/uL (0-0.1) 06/30/21 04:25 Differential Comment MANUAL DIFFERENTIAL 06/30/21 04:25 Platelet Estimate NORMAL (130-450,000) (NORMAL) 06/30/21 04:25 RBC Morph Micro Appear NORMAL APPEARANCE (NORMAL) 06/30/21 04:25 Sodium 137 mmol/L (135-145) 07/01/21 05:22 Potassium 4.0 mmol/L (3.5-5.0) 07/01/21 05:22 Chloride 105 mmol/L (101-111) 07/01/21 05:22 Carbon Dioxide 25 mmol/L (21-32) 07/01/21 05:22 Anion Gap 7.0 (6-13) 07/01/21 05:22 BUN 21 mg/dL (6-20) H 07/01/21 05:22 Creatinine 1.0 mg/dL (0.6-1.2) 07/01/21 05:22 Estimated GFR (MDRD) 72 (>89) L 07/01/21 05:22 Glucose 99 mg/dL (70-100) 07/01/21 05:22 Estimat Average Glucose 123 mg/dL (70-100) H 06/29/21 04:32 Hemoglobin A1c % 5.9 % (4.27-6.07) 06/29/21 04:32 Calcium 7.9 mg/dL (8.5-10.3) L 07/01/21 05:22 Total Bilirubin 0.7 mg/dL (0.2-1.0) 07/01/21 05:22 AST 466 IU/L (10-42) H 07/01/21 05:22 ALT 290 IU/L (10-60) H 07/01/21 05:22 Alkaline Phosphatase 38 IU/L (42-121) L 07/01/21 05:22 Troponin I High Sens 19.2 ng/L (2.3-19.7) 06/30/21 11:38 Total Protein 5.7 g/dL (6.7-8.2) L 07/01/21 05:22 Albumin 2.7 g/dL (3.2-5.5) L 07/01/21 05:22 Globulin 3.0 g/dL (2.1-4.2) 07/01/21 05:22 Albumin/Globulin Ratio 0.9 (1.0-2.2) L 07/01/21 05:22 Lipase 40 U/L (22-51) 06/28/21 15:36 Vitamin B12 785 pg/mL (180-914) 06/30/21 09:19 Folate 35.00 ng/mL (5.90 - >24.8) 06/30/21 09:19 Urine Color YELLOW 06/28/21 15:47 Urine Clarity CLEAR (CLEAR) 06/28/21 15:47 Urine pH 5.5 PH (5.0-7.5) 06/28/21 15:47 Ur Specific [place] >=1.030 (1.002-1.030) H 06/28/21 15:47 Urine Protein TRACE mg/dL (NEGATIVE) 06/28/21 15:47 Urine Glucose (UA) NEGATIVE mg/dL (NEGATIVE) 06/28/21 15:47 Urine Ketones NEGATIVE mg/dL (NEGATIVE) 06/28/21 15:47 Urine Occult Blood NEGATIVE (NEGATIVE) 06/28/21 15:47 Urine Nitrite NEGATIVE (NEGATIVE) 06/28/21 15:47 Urine Bilirubin NEGATIVE (NEGATIVE) 06/28/21 15:47 Urine Urobilinogen 0.2 (NORMAL) E.U./dL (NORMAL) 06/28/21 15:47 Ur Leukocyte Esterase NEGATIVE (NEGATIVE) 06/28/21 15:47 Ur Microscopic Review NOT INDICATED 06/28/21 15:47 Urine Culture Comments NOT INDICATED 06/28/21 15:47 Nasal Adenovirus (PCR) NOT DETECTED 06/29/21 23:55 Nasal B. parapertussis DNA (PCR) NOT DETECTED 06/29/21 23:55 Nasal Coronavir 229E PCR NOT DETECTED 06/29/21 23:55 Nasal Coronavir HKU1 PCR NOT DETECTED 06/29/21 23:55 Nasal Coronavir NL63 PCR NOT DETECTED 06/29/21 23:55 Nasal Coronavir OC43 PCR NOT DETECTED 06/29/21 23:55 Nasal Enterovir/Rhinovir PCR NOT DETECTED 06/29/21 23:55 Nasal Influenza B PCR NOT DETECTED 06/29/21 23:55 Nasal Influenza A PCR NOT DETECTED 06/29/21 23:55 Nasal Parainfluen 1 PCR NOT DETECTED 06/29/21 23:55 Nasal Parainfluen 2 PCR NOT DETECTED 06/29/21 23:55 Nasal Parainfluen 3 PCR NOT DETECTED 06/29/21 23:55 Nasal Parainfluen 4 PCR NOT DETECTED 06/29/21 23:55 Nasal RSV (PCR) NOT DETECTED 06/29/21 23:55 Nasal Screen MRSA (PCR) NEGATIVE (NEGATIVE) 06/28/21 22:35 Nasal B.pertussis DNA PCR NOT DETECTED 06/29/21 23:55 Nasal C.pneumoniae (PCR) NOT DETECTED 06/29/21 23:55 Chris Human Metapneumo PCR NOT DETECTED 06/29/21 23:55 Nasal M.pneumoniae (PCR) NOT DETECTED 06/29/21 23:55 Nasal SARS-CoV-2 (PCR) NOT DETECTED 06/29/21 23:55 ABX Reporting Has patient been on IV antibiotics over the past 48 hours?: No Current Medications - Current Medications Current Medications: Active Medications Aspirin (Aspirin Chew 81 Mg Tablet) 81 mg PO DAILY [facility] Last Admin: 07/01/21 08:24 Dose: 81 mg Documented by: Benzocaine/Butamben/Tetracaine HCl (Benzocaine/Tetracaine/Butamben 20 Gm) 1 sprays MM DAILY PRN PRN Reason: Throat Pain Enoxaparin Sodium (Enoxaparin 40 Mg/0.4 Ml Syringe) 40 mg SUBQ DAILY [facility] Last Admin: 07/01/21 08:24 Dose: 40 mg Documented by: Hydromorphone HCl (Hydromorphone 0.5 Mg/0.5 Ml Syringe) 0.5 mg IVP Q2H PRN PRN Reason: PAIN Last Admin: 06/30/21 20:38 Dose: 0.2 mg Documented by: Sodium Chloride (Normal Saline 0.9%) 1,000 mls @ 50 mls/hr IV .Q20H [facility] Last Infusion: 07/01/21 07:51 Dose: 50 mls/hr Documented by: Insulin Aspart (Insulin Aspart 300 Unit/3 Ml Pen) 1 - 5 unit SUBQ 0800,1200,1700,2100 [facility]; Protocol Last Admin: 07/01/21 08:27 Dose: Not Given Documented by: Ondansetron HCl (Ondansetron 4 Mg/2 Ml Vial) 4 mg IVP Q6H PRN PRN Reason: Nausea / Vomiting Oxycodone HCl (Oxycodone 5 Mg Tablet) 5 mg PO Q4HR PRN PRN Reason: PAIN Pantoprazole Sodium (Pantoprazole 40 Mg Tablet) 40 mg PO QDAC [facility] Last Admin: 07/01/21 06:36 Dose: 40 mg Documented by: Sodium Chloride (Sodium Chloride Flush 0.9% 10 Ml Syringe) 10 ml IVP 0100,0900,1700 [facility] Last Admin: 07/01/21 01:03 Dose: 10 ml Documented by: Sodium Chloride (Sodium Chloride Flush 0.9% 10 Ml Syringe) 10 ml IVP PRN PRN PRN Reason: NEEDED PER PROVIDER ORDERS Last Admin: 06/30/21 06:09 Dose: 10 ml Documented by: Atorvastatin [Lipitor] 40 mg PO DAILY 06/28/21
--- NOTE | 2021-07-01 15:42 | PROVIDER PROGRESS NOTE ---
Subjective - Prog Note Date Prog Note Date: 07/01/21 - Subjective Pt reports feeling: Improved (tolerating diet. up in chair) Objective - Vital Signs/Intake & Output Reviewed Vital Signs: Yes Vital Signs: Vital Signs x48h Temp Pulse Resp BP Pulse Ox 07/01/21 14:52 60 18 118/56 L 99 07/01/21 14:00 73 22 141/64 H 97 07/01/21 13:00 37.1 C 73 21 94/71 100 07/01/21 12:00 72 22 95/49 L 94 07/01/21 11:00 63 20 101/48 L 98 07/01/21 10:00 62 23 97/40 L 99 07/01/21 09:00 75 21 93/47 L 95 07/01/21 08:00 36.1 C L 75 20 117/47 L 91 L Intake & Output: Intake & Output 06/28/21 06/29/21 06/30/21 07/01/21 23:59 23:59 23:59 23:59 Intake Total 2328.333 4805.833 922.5 Output Total 1350 1365 3110 2800 Balance -1350 354.010 9187.833 -1877.5 - Objective General Appearance: positive: No acute distress, Alert Eyes Bilateral: positive: PERRL, EOMI Neck: positive: No JVD Respiratory: positive: No respiratory distress Abdomen: positive: Non-tender, No distention Neurologic/Psychiatric: positive: Other (alert) - Lab Results Fish Bones: 07/01/21 05:22 07/01/21 05:22 Other Labs: Lab Results x24hrs 07/01/21 07/01/21 Range/Units 05:22 05:22 WBC 8.2 (4.8-10.8) x10^3/uL RBC 3.48 L (4.70-6.10) 10^6/uL Hgb 11.5 L (14.0-18.0) g/dL Hct 34.6 L (42.0-52.0) % MCV 99.4 H (80.0-94.0) fL MCH 33.0 H (27.0-31.0) pg MCHC 33.2 (32.0-36.0) g/dL RDW 14.1 (12.0-15.0) % Plt Count 160 (130-450) 10^3/uL MPV 10.7 (7.4-11.4) fL Neut # (Auto) 5.7 (1.5-6.6) 10^3/uL Lymph # (Auto) 1.9 (1.5-3.5) 10^3/uL [place] # (Auto) 0.4 (0.0-1.0) 10^3/uL Eos # (Auto) 0.2 (0.0-0.7) 10^3/uL Baso # (Auto) 0.0 (0.0-0.1) 10^3/uL Absolute Nucleated RBC 0.00 x10^3/uL Nucleated RBC % 0.0 /100WBC Sodium 137 (135-145) mmol/L Potassium 4.0 (3.5-5.0) mmol/L Chloride 105 (101-111) mmol/L Carbon Dioxide 25 (21-32) mmol/L Anion Gap 7.0 (6-13) BUN 21 H (6-20) mg/dL Creatinine 1.0 (0.6-1.2) mg/dL Estimated GFR (MDRD) 72 L (>89) Glucose 99 (70-100) mg/dL Calcium 7.9 L (8.5-10.3) mg/dL Total Bilirubin 0.7 (0.2-1.0) mg/dL AST 466 H (10-42) IU/L ALT 290 H (10-60) IU/L Alkaline Phosphatase 38 L (42-121) IU/L Total Protein 5.7 L (6.7-8.2) g/dL Albumin 2.7 L (3.2-5.5) g/dL Globulin 3.0 (2.1-4.2) g/dL Albumin/Globulin Ratio 0.9 L (1.0-2.2) Assessment/Plan - Problem List (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 advance diet d/c ivf d/c planning. daughter present and is learning stoma care
[2021-07-01] MEDS: SODIUM CHLORIDE FLUSH 0.9% 10 ML SYRINGE IVP PRN (15:52)
[2021-07-02] MEDS: SODIUM CHLORIDE FLUSH 0.9% 10 ML SYRINGE IVP SCH ×3 (01:02→16:00)
[2021-07-02 05:38] LABS: BASOPHILS % (AUTO) 0.1 %; EOSINOPHILS # (AUTO) 0.3 10^3/uL (0.0-0.7); EOSINOPHILS % (AUTO) 3.7 %; HCT - HEMATOCRIT 32.8 % (42.0-52.0); LYMPHOCYTES # (AUTO) 2.3 10^3/uL (1.5-3.5); LYMPHOCYTES % (AUTO) 29.4 %; MEAN CORPUSCULAR HEMOGLOBIN 33.2 pg (27.0-31.0); MEAN CORPUSCULAR HGB CONC 33.5 g/dL (32.0-36.0); MEAN CORPUSCULAR VOLUME 99.1 fL (80.0-94.0); MEAN PLATELET VOLUME 9.1 fL (7.4-11.4); MONOCYTES # (AUTO) 0.4 10^3/uL (0.0-1.0); MONOCYTES % (AUTO) 5.7 %; NEUTROPHILS # (AUTO) 4.6 10^3/uL (1.5-6.6); NEUTROPHILS % (AUTO) 60.6 %; PLT - PLATELET COUNT 213 10^3/uL (130-450); RED BLOOD COUNT 3.31 10^6/uL (4.70-6.10); WHITE BLOOD COUNT 7.7 x10^3/uL (4.8-10.8)
[2021-07-02 05:52] LABS: ALBUMIN 2.5 g/dL (3.2-5.5); ALBUMIN/GLOBULIN RATIO 0.8 (1.0-2.2); BILIRUBIN,TOTAL 0.7 mg/dL (0.2-1.0); CALCIUM 7.9 mg/dL (8.5-10.3); CREATININE 0.9 mg/dL (0.6-1.2); POTASSIUM 3.7 mmol/L (3.5-5.0); TOTAL PROTEIN 5.5 g/dL (6.7-8.2)
[2021-07-02] MEDS: PANTOPRAZOLE 40 MG TABLET PO SCH (06:03)
--- NOTE | 2021-07-02 06:04 | PROVIDER PROGRESS NOTE ---
Subjective - Prog Note Date Prog Note Date: 07/02/21 Prog Note Time: 06:02 - Subjective Pt reports feeling: No change Subjective: He is watching TV this morning. I asked how he is doing any says "fine". I asked him if anything is bothering him and he tells me "to get this damn blanket off of me, it is too hot". Other than that he says his abdomen aches just a bit at the ostomy site. But denies any chest pain. Current Medications - Current Medications Current Medications: Active Medications Aspirin (Aspirin Chew 81 Mg Tablet) 81 mg PO DAILY [facility] Last Admin: 07/01/21 08:24 Dose: 81 mg Documented by: Benzocaine/Butamben/Tetracaine HCl (Benzocaine/Tetracaine/Butamben 20 Gm) 1 sprays MM DAILY PRN PRN Reason: Throat Pain Enoxaparin Sodium (Enoxaparin 40 Mg/0.4 Ml Syringe) 40 mg SUBQ DAILY [facility] Last Admin: 07/01/21 08:24 Dose: 40 mg Documented by: Hydromorphone HCl (Hydromorphone 0.5 Mg/0.5 Ml Syringe) 0.5 mg IVP Q2H PRN PRN Reason: PAIN Last Admin: 06/30/21 20:38 Dose: 0.2 mg Documented by: Ondansetron HCl (Ondansetron 4 Mg/2 Ml Vial) 4 mg IVP Q6H PRN PRN Reason: Nausea / Vomiting Oxycodone HCl (Oxycodone 5 Mg Tablet) 5 mg PO Q4HR PRN PRN Reason: PAIN Pantoprazole Sodium (Pantoprazole 40 Mg Tablet) 40 mg PO QDAC [facility] Last Admin: 07/02/21 06:03 Dose: 40 mg Documented by: Sodium Chloride (Sodium Chloride Flush 0.9% 10 Ml Syringe) 10 ml IVP 0100,0900,1700 [facility] Last Admin: 07/02/21 01:02 Dose: 10 ml Documented by: Sodium Chloride (Sodium Chloride Flush 0.9% 10 Ml Syringe) 10 ml IVP PRN PRN PRN Reason: NEEDED PER PROVIDER ORDERS Last Admin: 07/01/21 15:52 Dose: 10 ml Documented by: Tamsulosin HCl (Tamsulosin 0.4 Mg Capsule) 0.4 mg PO DAILY [facility] Atorvastatin [Lipitor] 40 mg PO DAILY 06/28/21 Objective - Vital Signs/Intake & Output Reviewed Vital Signs: Yes Vital Signs: Vital Signs x48h Temp Pulse Resp BP Pulse Ox 07/02/21 01:01 36.8 C 73 16 141/48 H 98 Intake & Output: Intake & Output 06/29/21 06/30/21 07/01/21 07/02/21 23:59 23:59 23:59 23:59 Intake Total 2328.333 4805.833 2014.833 Output Total 1365 3110 3965 Balance 293.405 7733.833 -1949.167 - Objective General Appearance: positive: Alert, Other ([place], elderly gentleman, partially edentulous, 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 negative: Stiff neck Respiratory: positive: No respiratory distress, Rhonchi (Present. I then have him give me a big cough which she reluctantly does. And the rhonchi disappear.). negative: Wheezes, Rales Cardiovascular: positive: Irregularly irregular. negative: Gallop/S4, Friction rub Abdomen: positive: Tenderness (Around ostomy site, but ostomy is pink, moist. Producing gas and stool. No surrounding redness or fluctuance. Normal active bowel sounds. Slightly bloated and distended abdomen with gas.). negative: Guarding, Rebound Skin: positive: Warm, Dry Extremities: positive: No pedal edema Neurologic/Psychiatric: positive: CN's nml (2-12), Motor nml, Disoriented to place, Disoriented to time - Lab Results Fish Bones: 07/02/21 05:34 07/02/21 05:34 Other Labs: Lab Results x24hrs 07/02/21 07/02/21 Range/Units 05:34 05:34 WBC 7.7 (4.8-10.8) x10^3/uL RBC 3.31 L (4.70-6.10) 10^6/uL Hgb 11.0 L (14.0-18.0) g/dL Hct 32.8 L (42.0-52.0) % MCV 99.1 H (80.0-94.0) fL MCH 33.2 H (27.0-31.0) pg MCHC 33.5 (32.0-36.0) g/dL RDW 14.0 (12.0-15.0) % Plt Count 213 (130-450) 10^3/uL MPV 9.1 (7.4-11.4) fL Neut # (Auto) 4.6 (1.5-6.6) 10^3/uL Lymph # (Auto) 2.3 (1.5-3.5) 10^3/uL [place] # (Auto) 0.4 (0.0-1.0) 10^3/uL Eos # (Auto) 0.3 (0.0-0.7) 10^3/uL Baso # (Auto) 0.0 (0.0-0.1) 10^3/uL Absolute Nucleated RBC 0.00 x10^3/uL Nucleated RBC % 0.0 /100WBC Sodium 139 (135-145) mmol/L Potassium 3.7 (3.5-5.0) mmol/L Chloride 106 (101-111) mmol/L Carbon Dioxide 27 (21-32) mmol/L Anion Gap 6.0 (6-13) BUN 18 (6-20) mg/dL Creatinine 0.9 (0.6-1.2) mg/dL Estimated GFR (MDRD) 81 L (>89) Glucose 97 (70-100) mg/dL Calcium 7.9 L (8.5-10.3) mg/dL Total Bilirubin 0.7 (0.2-1.0) mg/dL AST 224 H (10-42) IU/L ALT 189 H (10-60) IU/L Alkaline Phosphatase 33 L (42-121) IU/L Total Protein 5.5 L (6.7-8.2) g/dL Albumin 2.5 L (3.2-5.5) g/dL Globulin 3.0 (2.1-4.2) g/dL Albumin/Globulin Ratio 0.8 L (1.0-2.2) ABX Reporting Has patient been on IV antibiotics over the past 48 hours?: No Assessment/Plan - Problem List (1) Intestinal obstruction Impression: He was admitted and operated on the for bowel obstruction. 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 Today he is postoperative day 4. He has had flatus, bowel movements. Diet was started at clear liquids, advanced and he is on a mechanical soft diet. He ate 100% of his food yesterday .tolerating that well. Ostomy output is good. Has quite a bit of gas. Heat makes him uncomfortable and he wants the blankets off this morning. But there is no nausea, vomiting. He states the pain is tolerable. When he is stable for discharge, his daughter would like to take him home. He does much better in a familiar surroundings in a prison facility. In the past she used eating home care and asked social work to refer them to [facility] again. (2) Atrial fibrillation He initially had atrial fibrillation only in the operating room and by the time he got to recovery the A. fib had resolved. It returned again on the morning of the . Troponin was unremarkable. Chest x-ray was unremarkable. Started on metoprolol. Says he has a history of falls, only on aspirin and not a DOAC. Echocardiogram June 29 had a ejection fraction of 60 to 65%. Right ventricle normal size and function. Both atria size were normal. No valvular heart disease. He converted to sinus rhythm yesterday morning. We are holding metoprolol because of low blood pressure. As of today, no atrial fibrillation. (3)elevated liver enzyme For the first 2 days that he was here liver enzymes were normal. They started rising June 30 with AST 323, peaked at 466 the , and is 224 today. Total bili has not been elevated. Abdominal ultrasound has a liver with steatosis. Minimal perihepatic fluid. Sludge is noted within the gallbladder. The intrahepatic bile ducts are nondilated. Extrahepatic bile duct 4 mm. Since the gallbladder wall is thicker than normal, possibly developing cholecystitis. But the patient has no right upper quadrant pain. He denies pain to me this morning. His main concern is that the blankets are too hot. At this time statin has been held. Tylenol has been held. We will continue to monitor and look for signs and symptoms of acute cholecystitis. 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 she hopes for d/c to home (5) Diabetes mellitus Glucose was elevated on admission. A1c is 5.9%. We will continue to monitor and sliding scale insulin will be provided depending on how high his glucoses. So far he has not needed any insulin. (6) Hypertension stable, Continue vital signs monitor (7) DVT prophylaxis lovenox and SCD (8) Do not resuscitate Per admission provider's note, His daughter states that he has a good quality of life. She thinks if this surgery is successful he can return to that quality of life with a reasonable expectation. However if he were to have a sudden reversal of events and develop a respiratory or cardiac arrest or significant brain injury, he is to be a DO NOT RESUSCITATE.
[2021-07-02] MEDS: ENOXAPARIN 40 MG/0.4 ML SYRINGE SUBQ SCH (08:17)
[2021-07-02] MEDS: ASPIRIN CHEW 81 MG TABLET PO SCH (08:17)
[2021-07-02] MEDS: TAMSULOSIN 0.4 MG CAPSULE PO SCH (08:17)
--- NOTE | 2021-07-02 11:49 | PROVIDER PROGRESS NOTE ---
Assessment/Plan - Problem List (1) Urinary retention Assessment/Plan: Yesterday the patient had 1.2 L residual measured on bladder scan. A Bañuelos was reinserted and he was started on Flomax. Will remove the Bañuelos today and reassess if he has continued obstruction/urinary retention. - Current Meds Current Meds: Current Medications Generic Name Dose Route Start Last Admin Trade Name Freq PRN Reason Stop Dose Admin Aspirin 81 mg 06/30/21 10:00 07/02/21 08:17 Aspirin Chew 81 Mg Tablet PO 81 mg DAILY JUAQUIN Administration Enoxaparin Sodium 40 mg 06/30/21 09:00 07/02/21 08:17 Enoxaparin 40 Mg/0.4 Ml Syringe SUBQ 40 mg DAILY JUAQUIN Administration Hydromorphone HCl 0.5 mg 06/28/21 22:00 06/30/21 20:38 Hydromorphone 0.5 Mg/0.5 Ml Syringe IVP 0.2 mg Q2H PRN Administration PAIN Oxycodone HCl 5 mg 07/01/21 10:19 07/02/21 08:17 Oxycodone 5 Mg Tablet PO 5 mg Q4HR PRN Administration PAIN Pantoprazole Sodium 40 mg 07/01/21 07:00 07/02/21 06:03 Pantoprazole 40 Mg Tablet PO 40 mg QDAC JUAQUIN Administration Sodium Chloride 10 ml 06/29/21 01:00 07/02/21 08:17 Sodium Chloride Flush 0.9% 10 Ml Syringe IVP 10 ml 0100,0900,1700 JUAQUIN Administration Sodium Chloride 10 ml 06/28/21 22:00 07/01/21 15:52 Sodium Chloride Flush 0.9% 10 Ml Syringe IVP 10 ml PRN PRN Administration NEEDED PER PROVIDER ORDERS Tamsulosin HCl 0.4 mg 07/02/21 09:00 07/02/21 08:17 Tamsulosin 0.4 Mg Capsule PO 0.4 mg DAILY JUAQUIN Administration - Lab Result Fish Bone Diagrams: 07/02/21 05:34 07/02/21 05:34 - Additional Planning My Orders: My Active Orders 07/02/21 11:45 Bladder Scan [RC] ENDSHIFT Objective Vital Signs: Vital Signs - 24 hr 07/01/21 07/01/21 07/01/21 12:00 13:00 14:00 Temperature 37.1 C Heart Rate [ 72 73 73 Monitoring electrodes] Respiratory 22 21 22 Rate Blood Pressure 95/49 L 94/71 141/64 H [Left Brachial artery] O2 Saturation 94 100 97 07/01/21 07/01/21 07/01/21 14:52 16:00 17:00 Temperature 36.7 C Heart Rate [ 60 57 L 64 Monitoring electrodes] Respiratory 18 20 20 Rate Blood Pressure 118/56 L 127/55 L 138/63 H [Left Brachial artery] O2 Saturation 99 100 95 07/01/21 07/01/21 07/01/21 18:00 19:00 20:00 Temperature Heart Rate [ 77 78 59 L Monitoring electrodes] Respiratory 18 20 22 Rate Blood Pressure 157/68 H 149/89 H 111/41 L [Left Brachial artery] O2 Saturation 95 91 L 97 07/01/21 07/01/21 07/02/21 21:00 22:00 01:01 Temperature 36.8 C 36.8 C Heart Rate [ 63 60 73 Monitoring electrodes] Respiratory 18 18 16 Rate Blood Pressure 111/42 L 140/55 H 141/48 H [Left Brachial artery] O2 Saturation 100 100 98 07/02/21 06:00 Temperature 37 C Heart Rate [ 79 Monitoring electrodes] Respiratory 16 Rate Blood Pressure 131/67 H [Left Brachial artery] O2 Saturation 100 Oxygen O2 Source Room air I&O (Last 24 Hrs): Intake and Output Totals x24h 06/30/21 07/01/21 07/02/21 23:59 23:59 23:59 Intake Total 4805.833 2015.833 50 Output Total 3110 3965 700 Balance 5655.833 -1949.167 -650 - Results Results: Laboratory Results WBC 7.7 x10^3/uL (4.8-10.8) 07/02/21 05:34 RBC 3.31 10^6/uL (4.70-6.10) L 07/02/21 05:34 Hgb 11.0 g/dL (14.0-18.0) L 07/02/21 05:34 Hct 32.8 % (42.0-52.0) L 07/02/21 05:34 MCV 99.1 fL (80.0-94.0) H 07/02/21 05:34 MCH 33.2 pg (27.0-31.0) H 07/02/21 05:34 MCHC 33.5 g/dL (32.0-36.0) 07/02/21 05:34 RDW 14.0 % (12.0-15.0) 07/02/21 05:34 Plt Count 213 10^3/uL (130-450) 07/02/21 05:34 MPV 9.1 fL (7.4-11.4) 07/02/21 05:34 Neut # (Auto) 4.6 10^3/uL (1.5-6.6) 07/02/21 05:34 Lymph # (Auto) 2.3 10^3/uL (1.5-3.5) 07/02/21 05:34 [place] # (Auto) 0.4 10^3/uL (0.0-1.0) 07/02/21 05:34 Eos # (Auto) 0.3 10^3/uL (0.0-0.7) 07/02/21 05:34 Baso # (Auto) 0.0 10^3/uL (0.0-0.1) 07/02/21 05:34 Absolute Nucleated RBC 0.00 x10^3/uL 07/02/21 05:34 Total Counted 100 06/30/21 04:25 Band Neuts % (Manual) 4 % (0-10) 06/30/21 04:25 Abnorm Lymph % (Manual) 0 % 06/30/21 04:25 Nucleated RBC % 0.0 /100WBC 07/02/21 05:34 Neutrophils # (Manual) 8.3 10^3/uL (1.5-6.6) H 06/30/21 04:25 Lymphocytes # (Manual) 1.3 10^3/uL (1.5-3.5) L 06/30/21 04:25 Monocytes # (Manual) 0.2 10^3/uL (0.0-1.0) 06/30/21 04:25 Eosinophils # (Manual) 0.3 10^3/uL (0-0.7) 06/30/21 04:25 Basophils # (Manual) 0.0 10^3/uL (0-0.1) 06/30/21 04:25 Differential Comment MANUAL DIFFERENTIAL 06/30/21 04:25 Platelet Estimate NORMAL (130-450,000) (NORMAL) 06/30/21 04:25 RBC Morph Micro Appear NORMAL APPEARANCE (NORMAL) 06/30/21 04:25 Sodium 139 mmol/L (135-145) 07/02/21 05:34 Potassium 3.7 mmol/L (3.5-5.0) 07/02/21 05:34 Chloride 106 mmol/L (101-111) 07/02/21 05:34 Carbon Dioxide 27 mmol/L (21-32) 07/02/21 05:34 Anion Gap 6.0 (6-13) 07/02/21 05:34 BUN 18 mg/dL (6-20) 07/02/21 05:34 Creatinine 0.9 mg/dL (0.6-1.2) 07/02/21 05:34 Estimated GFR (MDRD) 81 (>89) L 07/02/21 05:34 Glucose 97 mg/dL (70-100) 07/02/21 05:34 Estimat Average Glucose 123 mg/dL (70-100) H 06/29/21 04:32 Hemoglobin A1c % 5.9 % (4.27-6.07) 06/29/21 04:32 Calcium 7.9 mg/dL (8.5-10.3) L 07/02/21 05:34 Total Bilirubin 0.7 mg/dL (0.2-1.0) 07/02/21 05:34 AST 224 IU/L (10-42) H 07/02/21 05:34 ALT 189 IU/L (10-60) H 07/02/21 05:34 Alkaline Phosphatase 33 IU/L (42-121) L 07/02/21 05:34 Troponin I High Sens 19.2 ng/L (2.3-19.7) 06/30/21 11:38 Total Protein 5.5 g/dL (6.7-8.2) L 07/02/21 05:34 Albumin 2.5 g/dL (3.2-5.5) L 07/02/21 05:34 Globulin 3.0 g/dL (2.1-4.2) 07/02/21 05:34 Albumin/Globulin Ratio 0.8 (1.0-2.2) L 07/02/21 05:34 Lipase 40 U/L (22-51) 06/28/21 15:36 Vitamin B12 785 pg/mL (180-914) 06/30/21 09:19 Folate 35.00 ng/mL (5.90 - >24.8) 06/30/21 09:19 Urine Color YELLOW 06/28/21 15:47 Urine Clarity CLEAR (CLEAR) 06/28/21 15:47 Urine pH 5.5 PH (5.0-7.5) 06/28/21 15:47 Ur Specific [place] >=1.030 (1.002-1.030) H 06/28/21 15:47 Urine Protein TRACE mg/dL (NEGATIVE) 06/28/21 15:47 Urine Glucose (UA) NEGATIVE mg/dL (NEGATIVE) 06/28/21 15:47 Urine Ketones NEGATIVE mg/dL (NEGATIVE) 06/28/21 15:47 Urine Occult Blood NEGATIVE (NEGATIVE) 06/28/21 15:47 Urine Nitrite NEGATIVE (NEGATIVE) 06/28/21 15:47 Urine Bilirubin NEGATIVE (NEGATIVE) 06/28/21 15:47 Urine Urobilinogen 0.2 (NORMAL) E.U./dL (NORMAL) 06/28/21 15:47 Ur Leukocyte Esterase NEGATIVE (NEGATIVE) 06/28/21 15:47 Ur Microscopic Review NOT INDICATED 06/28/21 15:47 Urine Culture Comments NOT INDICATED 06/28/21 15:47 Nasal Adenovirus (PCR) NOT DETECTED 06/29/21 23:55 Nasal B. parapertussis DNA (PCR) NOT DETECTED 06/29/21 23:55 Nasal Coronavir 229E PCR NOT DETECTED 06/29/21 23:55 Nasal Coronavir HKU1 PCR NOT DETECTED 06/29/21 23:55 Nasal Coronavir NL63 PCR NOT DETECTED 06/29/21 23:55 Nasal Coronavir OC43 PCR NOT DETECTED 06/29/21 23:55 Nasal Enterovir/Rhinovir PCR NOT DETECTED 06/29/21 23:55 Nasal Influenza B PCR NOT DETECTED 06/29/21 23:55 Nasal Influenza A PCR NOT DETECTED 06/29/21 23:55 Nasal Parainfluen 1 PCR NOT DETECTED 06/29/21 23:55 Nasal Parainfluen 2 PCR NOT DETECTED 06/29/21 23:55 Nasal Parainfluen 3 PCR NOT DETECTED 06/29/21 23:55 Nasal Parainfluen 4 PCR NOT DETECTED 06/29/21 23:55 Nasal RSV (PCR) NOT DETECTED 06/29/21 23:55 Nasal Screen MRSA (PCR) NEGATIVE (NEGATIVE) 06/28/21 22:35 Nasal B.pertussis DNA PCR NOT DETECTED 06/29/21 23:55 Nasal C.pneumoniae (PCR) NOT DETECTED 06/29/21 23:55 Chris Human Metapneumo PCR NOT DETECTED 06/29/21 23:55 Nasal M.pneumoniae (PCR) NOT DETECTED 06/29/21 23:55 Nasal SARS-CoV-2 (PCR) NOT DETECTED 06/29/21 23:55
--- NOTE | 2021-07-02 11:54 | PROVIDER PROGRESS NOTE ---
Subjective - General Admit Date: 06/28/21 Procedure Date: 06/28/21 Post Op Days: 4 Procedure Performed: Colostomy - Review of Systems Wound/Incisions: positive: Healing well, No drainage General: positive: No symptoms All Other Systems: positive: Other (Due to his dementia, review of systems is obtained from his daughter) Objective - Patient Data Reviewed Vital Signs: Yes Vital Signs: Vital Signs x48h Temp Pulse Resp BP Pulse Ox 07/02/21 06:00 37 C 79 16 131/67 H 100 Intake & Output: Intake and Output Totals x24h 06/30/21 07/01/21 07/02/21 23:59 23:59 23:59 Intake Total 4805.833 2015.833 50 Output Total 3110 3965 700 Balance 1695.833 -1949.167 -650 - Lab Results Lab Results: 07/02/21 05:34 07/02/21 05:34 Other Lab Results: Lab Results x24hrs 07/02/21 07/02/21 Range/Units 05:34 05:34 WBC 7.7 (4.8-10.8) x10^3/uL RBC 3.31 L (4.70-6.10) 10^6/uL Hgb 11.0 L (14.0-18.0) g/dL Hct 32.8 L (42.0-52.0) % MCV 99.1 H (80.0-94.0) fL MCH 33.2 H (27.0-31.0) pg MCHC 33.5 (32.0-36.0) g/dL RDW 14.0 (12.0-15.0) % Plt Count 213 (130-450) 10^3/uL MPV 9.1 (7.4-11.4) fL Neut # (Auto) 4.6 (1.5-6.6) 10^3/uL Lymph # (Auto) 2.3 (1.5-3.5) 10^3/uL [place] # (Auto) 0.4 (0.0-1.0) 10^3/uL Eos # (Auto) 0.3 (0.0-0.7) 10^3/uL Baso # (Auto) 0.0 (0.0-0.1) 10^3/uL Absolute Nucleated RBC 0.00 x10^3/uL Nucleated RBC % 0.0 /100WBC Sodium 139 (135-145) mmol/L Potassium 3.7 (3.5-5.0) mmol/L Chloride 106 (101-111) mmol/L Carbon Dioxide 27 (21-32) mmol/L Anion Gap 6.0 (6-13) BUN 18 (6-20) mg/dL Creatinine 0.9 (0.6-1.2) mg/dL Estimated GFR (MDRD) 81 L (>89) Glucose 97 (70-100) mg/dL Calcium 7.9 L (8.5-10.3) mg/dL Total Bilirubin 0.7 (0.2-1.0) mg/dL AST 224 H (10-42) IU/L ALT 189 H (10-60) IU/L Alkaline Phosphatase 33 L (42-121) IU/L Total Protein 5.5 L (6.7-8.2) g/dL Albumin 2.5 L (3.2-5.5) g/dL Globulin 3.0 (2.1-4.2) g/dL Albumin/Globulin Ratio 0.8 L (1.0-2.2) - Current Medications Current Medications: Current Medications Generic Name Dose Route Start Last Admin Trade Name Freq PRN Reason Stop Dose Admin Aspirin 81 mg 06/30/21 10:00 07/02/21 08:17 Aspirin Chew 81 Mg Tablet PO 81 mg DAILY JUAQUIN Administration Enoxaparin Sodium 40 mg 06/30/21 09:00 07/02/21 08:17 Enoxaparin 40 Mg/0.4 Ml Syringe SUBQ 40 mg DAILY JUAQUIN Administration Hydromorphone HCl 0.5 mg 06/28/21 22:00 06/30/21 20:38 Hydromorphone 0.5 Mg/0.5 Ml Syringe IVP 0.2 mg Q2H PRN Administration PAIN Oxycodone HCl 5 mg 07/01/21 10:19 07/02/21 08:17 Oxycodone 5 Mg Tablet PO 5 mg Q4HR PRN Administration PAIN Pantoprazole Sodium 40 mg 07/01/21 07:00 07/02/21 06:03 Pantoprazole 40 Mg Tablet PO 40 mg QDAC JUAQUIN Administration Sodium Chloride 10 ml 06/29/21 01:00 07/02/21 08:17 Sodium Chloride Flush 0.9% 10 Ml Syringe IVP 10 ml 0100,0900,1700 JUAQUIN Administration Sodium Chloride 10 ml 06/28/21 22:00 07/01/21 15:52 Sodium Chloride Flush 0.9% 10 Ml Syringe IVP 10 ml PRN PRN Administration NEEDED PER PROVIDER ORDERS Tamsulosin HCl 0.4 mg 07/02/21 09:00 07/02/21 08:17 Tamsulosin 0.4 Mg Capsule PO 0.4 mg DAILY JUAQUIN Administration - Physical Exam Wound/Incisions: positive: Healing well, No drainage Impression/Plan - Problem List Problem List: 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 Tolerating diet. No stoma output today but had output yesterday. Rai reinserted yesterday for urinary retention. On Flomax now. Will try d/c rai again, monitor with bladder US per discussion with Dr Uribe.
[2021-07-02] MEDS ORDERED: MIN OIL/DIMETHICON/COCONUT OIL 92 GM TUBE TOP PRN (13:20)
[2021-07-02] MEDS: SODIUM CHLORIDE FLUSH 0.9% 10 ML SYRINGE IVP PRN (16:00)
[2021-07-03] MEDS: SODIUM CHLORIDE FLUSH 0.9% 10 ML SYRINGE IVP SCH ×4 (00:36→19:41)
[2021-07-03 05:11] LABS: BASOPHILS % (AUTO) 0.1 %; EOSINOPHILS # (AUTO) 0.3 10^3/uL (0.0-0.7); HCT - HEMATOCRIT 34.1 % (42.0-52.0); HGB - HEMOGLOBIN 11.4 g/dL (14.0-18.0); LYMPHOCYTES # (AUTO) 2.2 10^3/uL (1.5-3.5); LYMPHOCYTES % (AUTO) 32.3 %; MEAN CORPUSCULAR HGB CONC 33.4 g/dL (32.0-36.0); MEAN CORPUSCULAR VOLUME 98.8 fL (80.0-94.0); MEAN PLATELET VOLUME 9.2 fL (7.4-11.4); MONOCYTES # (AUTO) 0.5 10^3/uL (0.0-1.0); MONOCYTES % (AUTO) 6.9 %; NEUTROPHILS # (AUTO) 3.7 10^3/uL (1.5-6.6); PLT - PLATELET COUNT 229 10^3/uL (130-450); RED BLOOD COUNT 3.45 10^6/uL (4.70-6.10); RED CELL DISTRIBUTION WIDTH 13.8 % (12.0-15.0); WHITE BLOOD COUNT 6.7 x10^3/uL (4.8-10.8)
[2021-07-03] MEDS: PANTOPRAZOLE 40 MG TABLET PO SCH (05:22)
[2021-07-03 05:24] LABS: ALBUMIN 2.8 g/dL (3.2-5.5); ALBUMIN/GLOBULIN RATIO 0.9 (1.0-2.2); BILIRUBIN,TOTAL 0.8 mg/dL (0.2-1.0); CALCIUM 8.3 mg/dL (8.5-10.3); CREATININE 0.9 mg/dL (0.6-1.2); POTASSIUM 3.9 mmol/L (3.5-5.0); TOTAL PROTEIN 5.8 g/dL (6.7-8.2)
[2021-07-03] MEDS: TAMSULOSIN 0.4 MG CAPSULE PO SCH (09:20)
[2021-07-03] MEDS: ENOXAPARIN 40 MG/0.4 ML SYRINGE SUBQ SCH (09:20)
[2021-07-03] MEDS: ASPIRIN CHEW 81 MG TABLET PO SCH (09:20)
--- NOTE | 2021-07-03 12:18 | PROVIDER PROGRESS NOTE ---
Subjective - General Admit Date: 06/28/21 Procedure Date: 06/28/21 Post Op Days: 5 Procedure Performed: Colostomy - Review of Systems Wound/Incisions: positive: Healing well, No drainage. negative: Erythema General: positive: No symptoms All Other Systems: positive: Other (Due to his dementia, review of systems is obtained from his daughter) Objective - Patient Data Reviewed Vital Signs: Yes Vital Signs: Vital Signs x48h Temp Pulse Resp BP Pulse Ox 07/03/21 08:59 36.6 C 82 20 133/52 H 97 Intake & Output: Intake and Output Totals x24h 07/01/21 07/02/21 07/03/21 23:59 23:59 23:59 Intake Total 2015.833 635 750 Output Total 3965 1150 [facility]1949.167 -515 -1250 - Lab Results Lab Results: 07/03/21 05:00 07/03/21 05:00 Other Lab Results: Lab Results x24hrs 07/03/21 07/03/21 Range/Units 05:00 05:00 WBC 6.7 (4.8-10.8) x10^3/uL RBC 3.45 L (4.70-6.10) 10^6/uL Hgb 11.4 L (14.0-18.0) g/dL Hct 34.1 L (42.0-52.0) % MCV 98.8 H (80.0-94.0) fL MCH 33.0 H (27.0-31.0) pg MCHC 33.4 (32.0-36.0) g/dL RDW 13.8 (12.0-15.0) % Plt Count 229 (130-450) 10^3/uL MPV 9.2 (7.4-11.4) fL Neut # (Auto) 3.7 (1.5-6.6) 10^3/uL Lymph # (Auto) 2.2 (1.5-3.5) 10^3/uL [place] # (Auto) 0.5 (0.0-1.0) 10^3/uL Eos # (Auto) 0.3 (0.0-0.7) 10^3/uL Baso # (Auto) 0.0 (0.0-0.1) 10^3/uL Absolute Nucleated RBC 0.00 x10^3/uL Nucleated RBC % 0.0 /100WBC Sodium 139 (135-145) mmol/L Potassium 3.9 (3.5-5.0) mmol/L Chloride 103 (101-111) mmol/L Carbon Dioxide 27 (21-32) mmol/L Anion Gap 9.0 (6-13) BUN 20 (6-20) mg/dL Creatinine 0.9 (0.6-1.2) mg/dL Estimated GFR (MDRD) 81 L (>89) Glucose 98 (70-100) mg/dL Calcium 8.3 L (8.5-10.3) mg/dL Total Bilirubin 0.8 (0.2-1.0) mg/dL AST 157 H (10-42) IU/L ALT 156 H (10-60) IU/L Alkaline Phosphatase 35 L (42-121) IU/L Total Protein 5.8 L (6.7-8.2) g/dL Albumin 2.8 L (3.2-5.5) g/dL Globulin 3.0 (2.1-4.2) g/dL Albumin/Globulin Ratio 0.9 L (1.0-2.2) - Current Medications Current Medications: Current Medications Generic Name Dose Route Start Last Admin Trade Name Freq PRN Reason Stop Dose Admin Aspirin 81 mg 06/30/21 10:00 07/03/21 09:20 Aspirin Chew 81 Mg Tablet PO 81 mg DAILY JUAQUIN Administration Enoxaparin Sodium 40 mg 06/30/21 09:00 07/03/21 09:20 Enoxaparin 40 Mg/0.4 Ml Syringe SUBQ 40 mg DAILY JUAQUIN Administration Hydromorphone HCl 0.5 mg 06/28/21 22:00 06/30/21 20:38 Hydromorphone 0.5 Mg/0.5 Ml Syringe IVP 0.2 mg Q2H PRN Administration PAIN Oxycodone HCl 5 mg 07/01/21 10:19 07/02/21 08:17 Oxycodone 5 Mg Tablet PO 5 mg Q4HR PRN Administration PAIN Pantoprazole Sodium 40 mg 07/01/21 07:00 07/03/21 05:22 Pantoprazole 40 Mg Tablet PO 40 mg QDAC JUAQUIN Administration Sodium Chloride 10 ml 06/29/21 01:00 07/03/21 09:21 Sodium Chloride Flush 0.9% 10 Ml Syringe IVP 10 ml 0100,0900,1700 JUAQUIN Administration Sodium Chloride 10 ml 06/28/21 22:00 07/02/21 16:00 Sodium Chloride Flush 0.9% 10 Ml Syringe IVP 10 ml PRN PRN Administration NEEDED PER PROVIDER ORDERS Tamsulosin HCl 0.4 mg 07/02/21 09:00 07/03/21 09:20 Tamsulosin 0.4 Mg Capsule PO 0.4 mg DAILY JUAQUIN Administration - Physical Exam Wound/Incisions: positive: Healing well, No drainage. negative: Erythema General Appearance: positive: No acute distress, Other (Sitting up in chair after transferred by PT. Patient is not able to transfer on his own.) Abdomen: positive: Non-tender, Other (Negative St's sign Stoma pink and healthy with brown liquid stool output)
--- NOTE | 2021-07-03 16:51 | CT Report ---
PROCEDURE: HEAD WO INDICATIONS: uncoordination TECHNIQUE: Noncontrast 4.5 mm thick angled axial sections acquired from the foramen magnum to the vertex. For r adiation dose reduction, the following was used: automated exposure control, adjustment of mA and/or kV according to patient size. COMPARISON: No priors are available for comparison at time of dictation. FINDINGS: Image quality: Excellent. CSF spaces: There is no focal extra-axial fluid collection. The lateral and third ventricles are prom inent. A right occipital approach ventricular shunt catheter is noted with the tip lying along the mi dline of the frontal horns of the lateral ventricle. Shunt tubing appears intact. Brain: No midline shift. No intracranial masses or hemorrhage. There is diffuse periventricular and deep white matter hypoattenuation. There is molina-white matter loss noted along the anterior aspect o f the right greater than left frontal lobes without definite sulcal effacement. Additional region of molina-white matter loss with adjacent encephalomalacia of the right occipital lobe. Skull and face: Calvarium and visualized facial bones are intact, without suspicious lesions. Posts urgical changes from prior shunt placement/nelly holes within the frontal and parietal bones as well a s shunt catheter within the posterior right parietal bone. Sinuses: Visualized sinuses and mastoids are clear. IMPRESSION: There is diffuse microvascular ischemic changes. Subtle region of molina-white matter loss of the left occipital lobe without adjacent sulcal effacement likely represents age-indeterminate, favor chronic infarction versus sequela of remote trauma/contusion. If clinical concern for acute ischemia, recomme nd dedicated MRI if shunt is MRI compatible. Additional regions of molina-white matter loss within the frontal lobes in a pattern suggestive of prio r trauma versus less likely remote infarction. Shunt catheter is noted in a right occipital approach with the tip overlying the midline of the later al ventricles anteriorly. There is mild prominence of the lateral and third ventricles. Change from p rior examination is unable to be determined at this time given unavailability of prior imaging. Recom mend correlation with prior imaging when available. Findings discussed with the inpatient provider Dr. Uribe by Dr. Ajit De La O at approximately 1545 hours [place] standard time on 07/03/2021. Reviewed by: Ajit De La O DO on 07/03/2021 3:50 PM [email or web address] Approved by: Aijt De La O DO on 07/03/2021 3:50 PM [facility] Station ID: [id number]
--- NOTE | 2021-07-03 18:46 | PROVIDER PROGRESS NOTE ---
Assessment/Plan - Problem List (1) AMS (altered mental status) Assessment/Plan: He is not following commands, less able to work with PT Will consider eval for stroke (2) Urinary retention Bañuelos not removed after surgery. Will order removeal. (3) Intestinal obstruction He was admitted and operated on the for bowel obstruction. He underwent a laparotomy with bowel resection and colostomy. 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 Ostomy output is good. But there is no nausea, vomiting. He states the pain is tolerable. Diet advancing oper surgery When he is stable for discharge, his daughter would like to take him home. He does much better in a familiar surroundings in a custodial facility. (4) Atrial fibrillation He initially had atrial fibrillation only in the operating room and by the time he got to recovery the A. fib had resolved. It returned again on the morning of the . Troponin was unremarkable. Chest x-ray was unremarkable. Started on metoprolol. Says he has a history of falls, only on aspirin therefore and not a DOAC. Echocardiogram June 29 showed an ejection fraction of 60 to 65%. Right ventricle normal size and function. Both atria size were normal. No valvular heart disease. (5) Dementia due to general medical condition without behavioral disturbance Per admission provider report, pt's Daughter/POA describes him as not having any behavioral disorders. she hopes for d/c to home (6) Diabetes mellitus Glucose was elevated on admission. A1c is 5.9%. We will continue to monitor and sliding scale insulin will be provided depending on how high his glucoses. So far he has not needed any insulin. (7) Hypertension stable, Continue vital signs monitor - Current Meds Current Meds: Current Medications Generic Name Dose Route Start Last Admin Trade Name Freq PRN Reason Stop Dose Admin Aspirin 81 mg 06/30/21 10:00 07/03/21 09:20 Aspirin Chew 81 Mg Tablet PO 81 mg DAILY JUAQUIN Administration Enoxaparin Sodium 40 mg 06/30/21 09:00 07/03/21 09:20 Enoxaparin 40 Mg/0.4 Ml Syringe SUBQ 40 mg DAILY JUAQUIN Administration Hydromorphone HCl 0.5 mg 06/28/21 22:00 06/30/21 20:38 Hydromorphone 0.5 Mg/0.5 Ml Syringe IVP 0.2 mg Q2H PRN Administration PAIN Oxycodone HCl 5 mg 07/01/21 10:19 07/02/21 08:17 Oxycodone 5 Mg Tablet PO 5 mg Q4HR PRN Administration PAIN Pantoprazole Sodium 40 mg 07/01/21 07:00 07/03/21 05:22 Pantoprazole 40 Mg Tablet PO 40 mg QDAC JUAQUIN Administration Sodium Chloride 10 ml 06/29/21 01:00 07/03/21 09:21 Sodium Chloride Flush 0.9% 10 Ml Syringe IVP 10 ml 0100,0900,1700 JUAQUIN Administration Sodium Chloride 10 ml 06/28/21 22:00 07/02/21 16:00 Sodium Chloride Flush 0.9% 10 Ml Syringe IVP 10 ml PRN PRN Administration NEEDED PER PROVIDER ORDERS Tamsulosin HCl 0.4 mg 07/02/21 09:00 07/03/21 09:20 Tamsulosin 0.4 Mg Capsule PO 0.4 mg DAILY JUAQUIN Administration - Lab Result Fish Bone Diagrams: 07/07/21 04:25 07/07/21 04:25 - Additional Planning My Orders: My Active Orders 07/02/21 19:00 Telemetry- [RC] Q4HR 07/03/21 14:35 IV DC [IV Discontinuation] [RC] .ONCE 07/03/21 14:36 Telemetry-Discontinue [RC] .ONCE Subjective - Subjective Patient Reports: Other (Asleep) Nursing Reports: Other (Both his RN and physical therapist report to me that he is more confused, has poor Q following today, is less coordinated especially has trouble with his right side movement.) Objective Vital Signs: Vital Signs - 24 hr 07/03/21 07/03/21 07/03/21 01:32 08:59 13:00 Temperature 36.7 C 36.6 C 36.8 C Heart Rate [ 84 82 95 Brachial] Respiratory 20 20 16 Rate Blood Pressure 148/78 H 133/52 H 97/53 L [Right Brachial artery] O2 Saturation 96 97 96 07/03/21 16:50 Temperature 36.5 C Heart Rate [ 88 Brachial] Respiratory 20 Rate Blood Pressure 99/47 L [Right Brachial artery] O2 Saturation 97 Oxygen O2 Source Room air I&O (Last 24 Hrs): Intake and Output Totals x24h 07/01/21 07/02/21 07/03/21 23:59 23:59 23:59 Intake Total 2014.639 076 5531 Output Total 3966 1150 2300 Balance -1949.896 -678 -612 General: Other (Asleep, awakens to touch and name) HEENT: Mucous membr. moist/pink Neck: Supple Neuro: Non Focal, Other (Lethargic) Cardiovascular: No murmurs Respiratory: No respiratory distress Abdomen: Soft Extremities: No edema - Results Results: Laboratory Results WBC 6.7 x10^3/uL (4.8-10.8) 07/03/21 05:00 RBC 3.45 10^6/uL (4.70-6.10) L 07/03/21 05:00 Hgb 11.4 g/dL (14.0-18.0) L 07/03/21 05:00 Hct 34.1 % (42.0-52.0) L 07/03/21 05:00 MCV 98.8 fL (80.0-94.0) H 07/03/21 05:00 MCH 33.0 pg (27.0-31.0) H 07/03/21 05:00 MCHC 33.4 g/dL (32.0-36.0) 07/03/21 05:00 RDW 13.8 % (12.0-15.0) 07/03/21 05:00 Plt Count 229 10^3/uL (130-450) 07/03/21 05:00 MPV 9.2 fL (7.4-11.4) 07/03/21 05:00 Neut # (Auto) 3.7 10^3/uL (1.5-6.6) 07/03/21 05:00 Lymph # (Auto) 2.2 10^3/uL (1.5-3.5) 07/03/21 05:00 [place] # (Auto) 0.5 10^3/uL (0.0-1.0) 07/03/21 05:00 Eos # (Auto) 0.3 10^3/uL (0.0-0.7) 07/03/21 05:00 Baso # (Auto) 0.0 10^3/uL (0.0-0.1) 07/03/21 05:00 Absolute Nucleated RBC 0.00 x10^3/uL 07/03/21 05:00 Total Counted 100 06/30/21 04:25 Band Neuts % (Manual) 4 % (0-10) 06/30/21 04:25 Abnorm Lymph % (Manual) 0 % 06/30/21 04:25 Nucleated RBC % 0.0 /100WBC 07/03/21 05:00 Neutrophils # (Manual) 8.3 10^3/uL (1.5-6.6) H 06/30/21 04:25 Lymphocytes # (Manual) 1.3 10^3/uL (1.5-3.5) L 06/30/21 04:25 Monocytes # (Manual) 0.2 10^3/uL (0.0-1.0) 06/30/21 04:25 Eosinophils # (Manual) 0.3 10^3/uL (0-0.7) 06/30/21 04:25 Basophils # (Manual) 0.0 10^3/uL (0-0.1) 06/30/21 04:25 Differential Comment MANUAL DIFFERENTIAL 06/30/21 04:25 Platelet Estimate NORMAL (130-450,000) (NORMAL) 06/30/21 04:25 RBC Morph Micro Appear NORMAL APPEARANCE (NORMAL) 06/30/21 04:25 Sodium 139 mmol/L (135-145) 07/03/21 05:00 Potassium 3.9 mmol/L (3.5-5.0) 07/03/21 05:00 Chloride 103 mmol/L (101-111) 07/03/21 05:00 Carbon Dioxide 27 mmol/L (21-32) 07/03/21 05:00 Anion Gap 9.0 (6-13) 07/03/21 05:00 BUN 20 mg/dL (6-20) 07/03/21 05:00 Creatinine 0.9 mg/dL (0.6-1.2) 07/03/21 05:00 Estimated GFR (MDRD) 81 (>89) L 07/03/21 05:00 Glucose 98 mg/dL (70-100) 07/03/21 05:00 Estimat Average Glucose 123 mg/dL (70-100) H 06/29/21 04:32 Hemoglobin A1c % 5.9 % (4.27-6.07) 06/29/21 04:32 Calcium 8.3 mg/dL (8.5-10.3) L 07/03/21 05:00 Total Bilirubin 0.8 mg/dL (0.2-1.0) 07/03/21 05:00 AST 157 IU/L (10-42) H 07/03/21 05:00 ALT 156 IU/L (10-60) H 07/03/21 05:00 Alkaline Phosphatase 35 IU/L (42-121) L 07/03/21 05:00 Troponin I High Sens 19.2 ng/L (2.3-19.7) 06/30/21 11:38 Total Protein 5.8 g/dL (6.7-8.2) L 07/03/21 05:00 Albumin 2.8 g/dL (3.2-5.5) L 07/03/21 05:00 Globulin 3.0 g/dL (2.1-4.2) 07/03/21 05:00 Albumin/Globulin Ratio 0.9 (1.0-2.2) L 07/03/21 05:00 Lipase 40 U/L (22-51) 06/28/21 15:36 Vitamin B12 785 pg/mL (180-914) 06/30/21 09:19 Folate 35.00 ng/mL (5.90 - >24.8) 06/30/21 09:19 Urine Color YELLOW 06/28/21 15:47 Urine Clarity CLEAR (CLEAR) 06/28/21 15:47 Urine pH 5.5 PH (5.0-7.5) 06/28/21 15:47 Ur Specific [place] >=1.030 (1.002-1.030) H 06/28/21 15:47 Urine Protein TRACE mg/dL (NEGATIVE) 06/28/21 15:47 Urine Glucose (UA) NEGATIVE mg/dL (NEGATIVE) 06/28/21 15:47 Urine Ketones NEGATIVE mg/dL (NEGATIVE) 06/28/21 15:47 Urine Occult Blood NEGATIVE (NEGATIVE) 06/28/21 15:47 Urine Nitrite NEGATIVE (NEGATIVE) 06/28/21 15:47 Urine Bilirubin NEGATIVE (NEGATIVE) 06/28/21 15:47 Urine Urobilinogen 0.2 (NORMAL) E.U./dL (NORMAL) 06/28/21 15:47 Ur Leukocyte Esterase NEGATIVE (NEGATIVE) 06/28/21 15:47 Ur Microscopic Review NOT INDICATED 06/28/21 15:47 Urine Culture Comments NOT INDICATED 06/28/21 15:47 Nasal Adenovirus (PCR) NOT DETECTED 06/29/21 23:55 Nasal B. parapertussis DNA (PCR) NOT DETECTED 06/29/21 23:55 Nasal Coronavir 229E PCR NOT DETECTED 06/29/21 23:55 Nasal Coronavir HKU1 PCR NOT DETECTED 06/29/21 23:55 Nasal Coronavir NL63 PCR NOT DETECTED 06/29/21 23:55 Nasal Coronavir OC43 PCR NOT DETECTED 06/29/21 23:55 Nasal Enterovir/Rhinovir PCR NOT DETECTED 06/29/21 23:55 Nasal Influenza B PCR NOT DETECTED 06/29/21 23:55 Nasal Influenza A PCR NOT DETECTED 06/29/21 23:55 Nasal Parainfluen 1 PCR NOT DETECTED 06/29/21 23:55 Nasal Parainfluen 2 PCR NOT DETECTED 06/29/21 23:55 Nasal Parainfluen 3 PCR NOT DETECTED 06/29/21 23:55 Nasal Parainfluen 4 PCR NOT DETECTED 06/29/21 23:55 Nasal RSV (PCR) NOT DETECTED 06/29/21 23:55 Nasal Screen MRSA (PCR) NEGATIVE (NEGATIVE) 06/28/21 22:35 Nasal B.pertussis DNA PCR NOT DETECTED 06/29/21 23:55 Nasal C.pneumoniae (PCR) NOT DETECTED 06/29/21 23:55 Chris Human Metapneumo PCR NOT DETECTED 06/29/21 23:55 Nasal M.pneumoniae (PCR) NOT DETECTED 06/29/21 23:55 Nasal SARS-CoV-2 (PCR) NOT DETECTED 06/29/21 23:55
[2021-07-04] MEDS: PANTOPRAZOLE 40 MG TABLET PO SCH (06:03)
[2021-07-04] MEDS: ENOXAPARIN 40 MG/0.4 ML SYRINGE SUBQ SCH (09:12)
[2021-07-04] MEDS: ASPIRIN CHEW 81 MG TABLET PO SCH (09:12)
[2021-07-04] MEDS: TAMSULOSIN 0.4 MG CAPSULE PO SCH (09:12)
[2021-07-04] MEDS: SODIUM CHLORIDE FLUSH 0.9% 10 ML SYRINGE IVP SCH (10:07)
[2021-07-04] MEDS ORDERED: LIDOCAINE 2% URO-JET 5 ML SYRINGE UR ONE (11:32)
--- NOTE | 2021-07-04 18:19 | PROVIDER PROGRESS NOTE ---
Assessment/Plan - Problem List (1) AMS (altered mental status) Assessment/Plan: He continues to follow cues poorly and cannot stand with moderate assistance. Yesterday a head CT was done, concerned that this AMS was new for him. It showed many chronic changes, no acute findings The SW was able to speak to his daughter and learned that he has stretches of days like this when he is mostly sleeping, less mobile and then perks up and has a stretch of days with more energy, these go back and forth. We want him to continue to work with PT when he is able. (2) Urinary retention After the Bañuelos was removed, he had urinary retention by bladder scan, coluld not urinate, and so Flomax was started and the Bañuelos was put back in. (3) Dementia due to general medical condition without behavioral disturbance Per the RN and Dr Randle, he is pulling at his colostomy bag, and that is why he cannot be discharged yet. The ostomy nurse and hius daughter are trying to devise a way that he will not dislodge it (long T shirt tucked into pamts). Daughter/POA describes him as not having any behavioral disorders. she is mreaDY for him to [facility] to home (4) Atrial fibrillation He initially had atrial fibrillation only in the operating room and by the time he got to recovery the A. fib had resolved. It returned again on the morning of the . Troponin was unremarkable. Chest x-ray was unremarkable. Started on metoprolol. Says he has a history of falls, only on aspirin and not a DOAC. Echocardiogram June 29 had a ejection fraction of 60 to 65%. Right ventricle normal size and function. Both atria size were normal. No valvular heart disease. He converted to sinus rhythm subsequently. We are holding metoprolol when he has low blood pressure. (5) Diabetes mellitus Glucose was elevated on admission. A1c is 5.9%. We will continue to monitor and sliding scale insulin will be provided depending on how high his glucoses. So far he has not needed any insulin. (6) Hypertension stable, Continue vital signs monitor - Current Meds Current Meds: Current Medications Generic Name Dose Route Start Last Admin Trade Name Dannyq PRN Reason Stop Dose Admin Aspirin 81 mg 06/30/21 10:00 07/04/21 09:12 Aspirin Chew 81 Mg Tablet PO 81 mg DAILY JUAQUIN Administration Enoxaparin Sodium 40 mg 06/30/21 09:00 07/04/21 09:12 Enoxaparin 40 Mg/0.4 Ml Syringe SUBQ 40 mg DAILY JUAQUIN Administration Hydromorphone HCl 0.5 mg 06/28/21 22:00 06/30/21 20:38 Hydromorphone 0.5 Mg/0.5 Ml Syringe IVP 0.2 mg Q2H PRN Administration PAIN Oxycodone HCl 5 mg 07/01/21 10:19 07/02/21 08:17 Oxycodone 5 Mg Tablet PO 5 mg Q4HR PRN Administration PAIN Pantoprazole Sodium 40 mg 07/01/21 07:00 07/04/21 06:03 Pantoprazole 40 Mg Tablet PO 40 mg QDAC JUAQUIN Administration Tamsulosin HCl 0.4 mg 07/02/21 09:00 07/04/21 09:12 Tamsulosin 0.4 Mg Capsule PO 0.4 mg DAILY JUAQUIN Administration - Lab Result Fish Bone Diagrams: 07/07/21 04:25 07/07/21 04:25 - Additional Planning My Orders: My Active Orders 07/04/21 11:32 Bañuelos Insertion [RC] QSHIFT Subjective - Subjective Patient Reports: Other (No complaints, nostly napping) Nursing Reports: Other (Not following cues, difficult to have stand and get OOB (per RN and PT)) Objective Vital Signs: Vital Signs - 24 hr 07/03/21 07/04/21 07/04/21 21:20 01:00 06:03 Temperature 36.7 C 37.7 C 37.1 C Heart Rate [ 86 91 91 Brachial] Respiratory 16 18 18 Rate Blood Pressure 104/40 L [Left Brachial artery] Blood Pressure [Right Ankle] Blood Pressure 116/44 L 115/60 [Right Brachial artery] O2 Saturation 99 96 98 07/04/21 07/04/21 07/04/21 09:00 13:00 16:34 Temperature 37.4 C 37.3 C 37.3 C Heart Rate [ 88 85 97 Brachial] Respiratory 16 16 18 Rate Blood Pressure [Left Brachial artery] Blood Pressure 125/53 L [Right Ankle] Blood Pressure 117/57 L 94/40 L [Right Brachial artery] O2 Saturation 97 95 96 Oxygen O2 Source Room air I&O (Last 24 Hrs): Intake and Output Totals x24h 07/02/21 07/03/21 07/04/21 23:59 23:59 23:59 Intake Total 635 7015 620 Output Total 1158 4716 3110 Balance -964 -8032 -0093 General: Other (Sleeping) HEENT: Mucous membr. moist/pink Neck: Supple Neuro: Other (Sleeping currently) Cardiovascular: Regular rate Respiratory: No respiratory distress Abdomen: Normal bowel sounds, Soft, Other (ostomy in place) Extremities: No edema, No tenderness/swelling - Results Results: Laboratory Results WBC 6.7 x10^3/uL (4.8-10.8) 07/03/21 05:00 RBC 3.45 10^6/uL (4.70-6.10) L 07/03/21 05:00 Hgb 11.4 g/dL (14.0-18.0) L 07/03/21 05:00 Hct 34.1 % (42.0-52.0) L 07/03/21 05:00 MCV 98.8 fL (80.0-94.0) H 07/03/21 05:00 MCH 33.0 pg (27.0-31.0) H 07/03/21 05:00 MCHC 33.4 g/dL (32.0-36.0) 07/03/21 05:00 RDW 13.8 % (12.0-15.0) 07/03/21 05:00 Plt Count 229 10^3/uL (130-450) 07/03/21 05:00 MPV 9.2 fL (7.4-11.4) 07/03/21 05:00 Neut # (Auto) 3.7 10^3/uL (1.5-6.6) 07/03/21 05:00 Lymph # (Auto) 2.2 10^3/uL (1.5-3.5) 07/03/21 05:00 [place] # (Auto) 0.5 10^3/uL (0.0-1.0) 07/03/21 05:00 Eos # (Auto) 0.3 10^3/uL (0.0-0.7) 07/03/21 05:00 Baso # (Auto) 0.0 10^3/uL (0.0-0.1) 07/03/21 05:00 Absolute Nucleated RBC 0.00 x10^3/uL 07/03/21 05:00 Total Counted 100 06/30/21 04:25 Band Neuts % (Manual) 4 % (0-10) 06/30/21 04:25 Abnorm Lymph % (Manual) 0 % 06/30/21 04:25 Nucleated RBC % 0.0 /100WBC 07/03/21 05:00 Neutrophils # (Manual) 8.3 10^3/uL (1.5-6.6) H 06/30/21 04:25 Lymphocytes # (Manual) 1.3 10^3/uL (1.5-3.5) L 06/30/21 04:25 Monocytes # (Manual) 0.2 10^3/uL (0.0-1.0) 06/30/21 04:25 Eosinophils # (Manual) 0.3 10^3/uL (0-0.7) 06/30/21 04:25 Basophils # (Manual) 0.0 10^3/uL (0-0.1) 06/30/21 04:25 Differential Comment MANUAL DIFFERENTIAL 06/30/21 04:25 Platelet Estimate NORMAL (130-450,000) (NORMAL) 06/30/21 04:25 RBC Morph Micro Appear NORMAL APPEARANCE (NORMAL) 06/30/21 04:25 Sodium 139 mmol/L (135-145) 07/03/21 05:00 Potassium 3.9 mmol/L (3.5-5.0) 07/03/21 05:00 Chloride 103 mmol/L (101-111) 07/03/21 05:00 Carbon Dioxide 27 mmol/L (21-32) 07/03/21 05:00 Anion Gap 9.0 (6-13) 07/03/21 05:00 BUN 20 mg/dL (6-20) 07/03/21 05:00 Creatinine 0.9 mg/dL (0.6-1.2) 07/03/21 05:00 Estimated GFR (MDRD) 81 (>89) L 07/03/21 05:00 Glucose 98 mg/dL (70-100) 07/03/21 05:00 Estimat Average Glucose 123 mg/dL (70-100) H 06/29/21 04:32 Hemoglobin A1c % 5.9 % (4.27-6.07) 06/29/21 04:32 Calcium 8.3 mg/dL (8.5-10.3) L 07/03/21 05:00 Total Bilirubin 0.8 mg/dL (0.2-1.0) 07/03/21 05:00 AST 157 IU/L (10-42) H 07/03/21 05:00 ALT 156 IU/L (10-60) H 07/03/21 05:00 Alkaline Phosphatase 35 IU/L (42-121) L 07/03/21 05:00 Troponin I High Sens 19.2 ng/L (2.3-19.7) 06/30/21 11:38 Total Protein 5.8 g/dL (6.7-8.2) L 07/03/21 05:00 Albumin 2.8 g/dL (3.2-5.5) L 07/03/21 05:00 Globulin 3.0 g/dL (2.1-4.2) 07/03/21 05:00 Albumin/Globulin Ratio 0.9 (1.0-2.2) L 07/03/21 05:00 Lipase 40 U/L (22-51) 06/28/21 15:36 Vitamin B12 785 pg/mL (180-914) 06/30/21 09:19 Folate 35.00 ng/mL (5.90 - >24.8) 06/30/21 09:19 Urine Color YELLOW 06/28/21 15:47 Urine Clarity CLEAR (CLEAR) 06/28/21 15:47 Urine pH 5.5 PH (5.0-7.5) 06/28/21 15:47 Ur Specific [place] >=1.030 (1.002-1.030) H 06/28/21 15:47 Urine Protein TRACE mg/dL (NEGATIVE) 06/28/21 15:47 Urine Glucose (UA) NEGATIVE mg/dL (NEGATIVE) 06/28/21 15:47 Urine Ketones NEGATIVE mg/dL (NEGATIVE) 06/28/21 15:47 Urine Occult Blood NEGATIVE (NEGATIVE) 06/28/21 15:47 Urine Nitrite NEGATIVE (NEGATIVE) 06/28/21 15:47 Urine Bilirubin NEGATIVE (NEGATIVE) 06/28/21 15:47 Urine Urobilinogen 0.2 (NORMAL) E.U./dL (NORMAL) 06/28/21 15:47 Ur Leukocyte Esterase NEGATIVE (NEGATIVE) 06/28/21 15:47 Ur Microscopic Review NOT INDICATED 06/28/21 15:47 Urine Culture Comments NOT INDICATED 06/28/21 15:47 Nasal Adenovirus (PCR) NOT DETECTED 06/29/21 23:55 Nasal B. parapertussis DNA (PCR) NOT DETECTED 06/29/21 23:55 Nasal Coronavir 229E PCR NOT DETECTED 06/29/21 23:55 Nasal Coronavir HKU1 PCR NOT DETECTED 06/29/21 23:55 Nasal Coronavir NL63 PCR NOT DETECTED 06/29/21 23:55 Nasal Coronavir OC43 PCR NOT DETECTED 06/29/21 23:55 Nasal Enterovir/Rhinovir PCR NOT DETECTED 06/29/21 23:55 Nasal Influenza B PCR NOT DETECTED 06/29/21 23:55 Nasal Influenza A PCR NOT DETECTED 06/29/21 23:55 Nasal Parainfluen 1 PCR NOT DETECTED 06/29/21 23:55 Nasal Parainfluen 2 PCR NOT DETECTED 06/29/21 23:55 Nasal Parainfluen 3 PCR NOT DETECTED 06/29/21 23:55 Nasal Parainfluen 4 PCR NOT DETECTED 06/29/21 23:55 Nasal RSV (PCR) NOT DETECTED 06/29/21 23:55 Nasal Screen MRSA (PCR) NEGATIVE (NEGATIVE) 06/28/21 22:35 Nasal B.pertussis DNA PCR NOT DETECTED 06/29/21 23:55 Nasal C.pneumoniae (PCR) NOT DETECTED 06/29/21 23:55 Chris Human Metapneumo PCR NOT DETECTED 06/29/21 23:55 Nasal M.pneumoniae (PCR) NOT DETECTED 06/29/21 23:55 Nasal SARS-CoV-2 (PCR) NOT DETECTED 06/29/21 23:55
[2021-07-05] MEDS: PANTOPRAZOLE 40 MG TABLET PO SCH (06:05)
--- NOTE | 2021-07-05 08:55 | PROVIDER PROGRESS NOTE ---
Subjective - General Admit Date: 06/28/21 Procedure Date: 06/28/21 Post Op Days: 7 Procedure Performed: Colostomy - Review of Systems Wound/Incisions: positive: Healing well, No drainage. negative: Erythema General: positive: No symptoms All Other Systems: positive: Other (Due to his dementia, review of systems is obtained from his daughter) - Other Other Information/Narrative: This is a late entry from July 04 as I was not able to document due to Internet issues. Mr. Tom is sitting up in bed in his daughter is feeding him. He is eating and tolerating it well. Having bowel movements without difficulty. Though his ostomy is working, we are having trouble finding a system that he can tolerate. He is continually pulling the bag off.The ultimate plan continues to be for him to be able to go home with his daughter and continue to live there with she and his great grandchildren. Objective - Patient Data Reviewed Vital Signs: Yes Intake & Output: Intake and Output Totals x24h 07/03/21 07/04/21 07/05/21 23:59 23:59 23:59 Intake Total 1885 620 Output Total 4250 2300 1050 Balance -2365 -1680 -1050 - Lab Results Lab Results: 07/03/21 05:00 07/03/21 05:00 - Current Medications Current Medications: Current Medications Generic Name Dose Route Start Last Admin Trade Name Freq PRN Reason Stop Dose Admin Aspirin 81 mg 06/30/21 10:00 07/04/21 09:12 Aspirin Chew 81 Mg Tablet PO 81 mg DAILY JUAQUIN Administration Enoxaparin Sodium 40 mg 06/30/21 09:00 07/04/21 09:12 Enoxaparin 40 Mg/0.4 Ml Syringe SUBQ 40 mg DAILY JUAQUIN Administration Hydromorphone HCl 0.5 mg 06/28/21 22:00 06/30/21 20:38 Hydromorphone 0.5 Mg/0.5 Ml Syringe IVP 0.2 mg Q2H PRN Administration PAIN Oxycodone HCl 5 mg 07/01/21 10:19 07/02/21 08:17 Oxycodone 5 Mg Tablet PO 5 mg Q4HR PRN Administration PAIN Pantoprazole Sodium 40 mg 07/01/21 07:00 07/05/21 06:05 Pantoprazole 40 Mg Tablet PO 40 mg QDAC JUAQUIN Administration Tamsulosin HCl 0.4 mg 07/02/21 09:00 07/04/21 09:12 Tamsulosin 0.4 Mg Capsule PO 0.4 mg DAILY JUAQUIN Administration - Physical Exam Wound/Incisions: positive: Healing well, Other (Ostomy is pink and viable) General Appearance: positive: No acute distress Eyes Bilateral: positive: Normal inspection ENT: positive: ENT inspection nml Neck: positive: Nml inspection, Thyroid nml Respiratory: positive: Chest non-tender, No respiratory distress, Breath sounds nml Cardiovascular: positive: Regular rate & rhythm, No murmur Abdomen: positive: Tenderness (Tender only in the left lower quadrant around the ostomy site. His incision is healing well and without erythema or drainage) Skin: positive: Color nml Neurologic/Psychiatric: positive: Disoriented to person, Disoriented to place ABX Reporting Has patient been on IV antibiotics over the past 48 hours?: No Impression/Plan - Problem List Problem List: Sigmoid volvulus and now urinary retention. 1. The volvulus has resolved. The ostomy nurse is working with the patient and his daughter regarding ostomy care. Due to his dementia, he will not be able to take care of his ostomy unassisted. 2. Significant physical deconditioning.Physical therapy is working with the patient but he is quite weak and there are days he does not stand at all. 3.Bañuelos catheter has been replaced. We will try 1 more time a voiding trial and see if we can get the catheter out so that he can go home.Otherwise, he will need to follow-up with urology in a couple of weeks.I would prefer to have the catheter removed as it just represents another source of infection for him.
[2021-07-05] MEDS: ENOXAPARIN 40 MG/0.4 ML SYRINGE SUBQ SCH (09:25)
[2021-07-05] MEDS: ASPIRIN CHEW 81 MG TABLET PO SCH (09:26)
[2021-07-05] MEDS: TAMSULOSIN 0.4 MG CAPSULE PO SCH ×2 (09:26→21:20)
[2021-07-05 09:53] LABS: BASOPHILS % (AUTO) 0.2 %; EOSINOPHILS # (AUTO) 0.2 10^3/uL (0.0-0.7); EOSINOPHILS % (AUTO) 1.3 %; HCT - HEMATOCRIT 34.4 % (42.0-52.0); HGB - HEMOGLOBIN 11.3 g/dL (14.0-18.0); LYMPHOCYTES # (AUTO) 2.2 10^3/uL (1.5-3.5); LYMPHOCYTES % (AUTO) 13.9 %; MEAN CORPUSCULAR HGB CONC 32.8 g/dL (32.0-36.0); MEAN CORPUSCULAR VOLUME 100.6 fL (80.0-94.0); MEAN PLATELET VOLUME 9.8 fL (7.4-11.4); MONOCYTES # (AUTO) 0.8 10^3/uL (0.0-1.0); MONOCYTES % (AUTO) 5.4 %; NEUTROPHILS # (AUTO) 12.2 10^3/uL (1.5-6.6); NEUTROPHILS % (AUTO) 78.2 %; PLT - PLATELET COUNT 269 10^3/uL (130-450); RED BLOOD COUNT 3.42 10^6/uL (4.70-6.10); RED CELL DISTRIBUTION WIDTH 13.9 % (12.0-15.0); WHITE BLOOD COUNT 15.6 x10^3/uL (4.8-10.8)
[2021-07-05 10:02] LABS: ALBUMIN 2.9 g/dL (3.2-5.5); ALBUMIN/GLOBULIN RATIO 0.9 (1.0-2.2); BILIRUBIN,TOTAL 1.1 mg/dL (0.2-1.0); CALCIUM 8.7 mg/dL (8.5-10.3); CREATININE 1.2 mg/dL (0.6-1.2); POTASSIUM 3.7 mmol/L (3.5-5.0); TOTAL PROTEIN 6.2 g/dL (6.7-8.2)
--- NOTE | 2021-07-05 11:53 | XRAY Report ---
PROCEDURE: Chest 1 View X-Ray INDICATIONS: sob TECHNIQUE: One view of the chest was acquired. COMPARISON: 06/22/2021 FINDINGS: Surgical changes and devices: Right-sided RAILROAD SIGNAL OPERATOR shunt tubing is unchanged in appearance. Lungs and pleura: Chronic appearing minimal diffuse interstitial prominence. No focal consolidations. No pleural effusions or pneumothorax. Lungs are otherwise clear. Mediastinum: Mediastinal contours appear stable. Heart size is normal. Density adjacent to the rig ht superior mediastinum is stable and likely represents degenerative changes of the distal first rib. Bones and chest wall: No suspicious bony lesions. Overlying soft tissues appear unremarkable. IMPRESSION: Chest without acute cardiopulmonary abnormalities. No focal airspace disease. Reviewed by: Ned Ross MD on 07/05/2021 11:52 AM PDT Approved by: Ned Ross MD on 07/05/2021 11:52 AM PDT Station ID: [id number]
[2021-07-05 13:14] LABS: BILIRUBIN,URINE NEGATIVE (NEGATIVE); GLUCOSE, URINE (UA) NEGATIVE (NEGATIVE); KETONES,URINE (UA) NEGATIVE (NEGATIVE); LEUKOCYTE ESTERASE, URINE LARGE (NEGATIVE); NITRITE,URINE NEGATIVE (NEGATIVE); OCCULT BLOOD,URINE SMALL (NEGATIVE); PROTEIN,URINE NEGATIVE (NEGATIVE); UROBILINOGEN,URINE 0.2 (NORMAL) E.U./dL (NORMAL)
[2021-07-05 13:19] LABS: CLARITY,URINE HAZY (CLEAR)
[2021-07-05 13:24] LABS: BACTERIA,URINE Many /HPF (None Seen); RBC,URINE 0-5 /HPF (0-5); SQUAMOUS EPITHELIAL CELL,UR NONE SEEN (<= Few); WBC,URINE >25 /HPF (0-3)
--- NOTE | 2021-07-05 14:20 | PROVIDER PROGRESS NOTE ---
Subjective - General Admit Date: 06/28/21 Procedure Date: 06/28/21 Post Op Days: 7 Procedure Performed: Colostomy - Review of Systems Wound/Incisions: positive: Healing well, Other (Ostomy is pink and viable) General: positive: No symptoms All Other Systems: positive: Other (Due to his dementia, review of systems is obtained from his daughter) - Other Other Information/Narrative: Awake and fairly alert.White blood cells increased significantly today. Fortunately hospitalist service decided to check labs. Urinalysis shows a significant UTI.He continues to eat and have bowel function. Objective - Patient Data Reviewed Vital Signs: Yes Intake & Output: Intake and Output Totals x24h 07/03/21 07/04/21 07/05/21 23:59 23:59 23:59 Intake Total 1885 620 320 Output Total 4250 2300 1575 [facility] -[phone] - Lab Results Lab Results: 07/05/21 09:27 07/05/21 09:27 Other Lab Results: Lab Results x24hrs 07/05/21 07/05/21 07/05/21 Range/Units 13:09 09:27 09:27 WBC 15.6 H (4.8-10.8) x10^3/uL RBC 3.42 L (4.70-6.10) 10^6/uL Hgb 11.3 L (14.0-18.0) g/dL Hct 34.4 L (42.0-52.0) % MCV 100.6 H (80.0-94.0) fL MCH 33.0 H (27.0-31.0) pg MCHC 32.8 (32.0-36.0) g/dL RDW 13.9 (12.0-15.0) % Plt Count 269 (130-450) 10^3/uL MPV 9.8 (7.4-11.4) fL Neut # (Auto) 12.2 H (1.5-6.6) 10^3/uL Lymph # (Auto) 2.2 (1.5-3.5) 10^3/uL [place] # (Auto) 0.8 (0.0-1.0) 10^3/uL Eos # (Auto) 0.2 (0.0-0.7) 10^3/uL Baso # (Auto) 0.0 (0.0-0.1) 10^3/uL Absolute Nucleated RBC 0.00 x10^3/uL Nucleated RBC % 0.0 /100WBC Sodium 136 (135-145) mmol/L Potassium 3.7 (3.5-5.0) mmol/L Chloride 101 (101-111) mmol/L Carbon Dioxide 27 (21-32) mmol/L Anion Gap 8.0 (6-13) BUN 19 (6-20) mg/dL Creatinine 1.2 (0.6-1.2) mg/dL Estimated GFR (MDRD) 58 L (>89) Glucose 167 H (70-100) mg/dL Calcium 8.7 (8.5-10.3) mg/dL Total Bilirubin 1.1 H (0.2-1.0) mg/dL AST 87 H (10-42) IU/L ALT 110 H (10-60) IU/L Alkaline Phosphatase 37 L (42-121) IU/L Total Protein 6.2 L (6.7-8.2) g/dL Albumin 2.9 L (3.2-5.5) g/dL Globulin 3.3 (2.1-4.2) g/dL Albumin/Globulin Ratio 0.9 L (1.0-2.2) Urine Color YELLOW Urine Clarity HAZY (CLEAR) Urine pH 7.0 (5.0-7.5) PH Ur Specific [place] 1.010 (1.002-1.030) Urine Protein NEGATIVE (NEGATIVE) mg/dL Urine Glucose (UA) NEGATIVE (NEGATIVE) mg/dL Urine Ketones NEGATIVE (NEGATIVE) mg/dL Urine Occult Blood SMALL H (NEGATIVE) Urine Nitrite NEGATIVE (NEGATIVE) Urine Bilirubin NEGATIVE (NEGATIVE) Urine Urobilinogen 0.2 (NORMAL) (NORMAL) E.U./dL Ur Leukocyte Esterase LARGE H (NEGATIVE) Urine RBC 0-5 (0-5) /HPF Urine WBC >25 H (0-3) /HPF Ur Squamous Epith Cells NONE SEEN (<= Few) Urine Bacteria Many H (None Seen) /HPF Urine Culture Comments INDICATED - Current Medications Current Medications: Current Medications Generic Name Dose Route Start Last Admin Trade Name Freq PRN Reason Stop Dose Admin Aspirin 81 mg 06/30/21 10:00 07/05/21 09:26 Aspirin Chew 81 Mg Tablet PO 81 mg DAILY JUAQUIN Administration Enoxaparin Sodium 40 mg 06/30/21 09:00 07/05/21 09:25 Enoxaparin 40 Mg/0.4 Ml Syringe SUBQ 40 mg DAILY JUAQUIN Administration Hydromorphone HCl 0.5 mg 06/28/21 22:00 06/30/21 20:38 Hydromorphone 0.5 Mg/0.5 Ml Syringe IVP 0.2 mg Q2H PRN Administration PAIN Oxycodone HCl 5 mg 07/01/21 10:19 07/02/21 08:17 Oxycodone 5 Mg Tablet PO 5 mg Q4HR PRN Administration PAIN Pantoprazole Sodium 40 mg 07/01/21 07:00 07/05/21 06:05 Pantoprazole 40 Mg Tablet PO 40 mg QDAC JUAQUIN Administration - Physical Exam Wound/Incisions: positive: Healing well General Appearance: positive: No acute distress Eyes Bilateral: positive: Normal inspection, PERRL Respiratory: positive: No respiratory distress ABX Reporting Has patient been on IV antibiotics over the past 48 hours?: No Impression/Plan - Problem List Problem List: 1. Sigmoid volvulus with complete bowel obstruction-Resolved. The ostomy nurses continue to work with the patient and his daughter to care for the ostomy and to find a system that works for them.He is tolerating an oral diet. 2. Urinary retention with UTI. The UTI is likely the reason for the retention. His Bañuelos was removed this morning to give him another voiding trial. He has been started on Flomax twice daily. Culture is pending. The hospitalist service will start antibiotics. 3. Hold discharge for now. We will need to get culture results before sending him home so that we can use an appropriate antibiotic. Additionally, hopefully the urinary retention issue will resolve with treatment.
--- NOTE | 2021-07-05 15:05 | PROVIDER PROGRESS NOTE ---
Assessment/Plan - Problem List (1) Intestinal obstruction Assessment/Plan: 07/05, follow-up with surgeon's care of 7 days s/p colon resection and colostomy for sigmoid volvulus and obstruction, Patient tolerated diet and had bowel movements. The ostomy nurses work with the patient, and his daughter for the ostomy care. (2) Urinary retention surgeon will try once for off Bañuelos, continue Flomax bid. continue nurse care, monitor urinary retention. (3)UTI pt has Elevated WBC, slight elevated tem but not fever, and urinalysis reveal UTI. pt is Hemodynamic stable. Patient had history of advanced dementia. start with IV Rocephin, Follow-up with UA culture and sensitivity study. (4) dementia without behavioral disturbance as pt's hx, continue to have poorly clinic presentation. Family is taking care of patient well, ask d/c to home with family care. Consult with social work for disposition planning. (5) Atrial fibrillation stable, HR is 95 now. He initially had atrial fibrillation only in the operating room and by the time he got to recovery the A. fib had resolved. It returned again on the morning of the . Troponin was unremarkable. Chest x-ray was unremarkable. Started on metoprolol. Says he has a history of falls, only on aspirin and not a DOAC. Echocardiogram June 29 had a ejection fraction of 60 to 65%. Right ventricle normal size and function. Both atria size were normal. No valvular heart disease. He converted to sinus rhythm yesterday morning. We are holding metoprolol because of low blood pressure. As of today, no atrial fibrillation. (6) Diabetes mellitus Glucose was elevated on admission. A1c is 5.9%. We will continue to monitor and sliding scale insulin will be provided depending on how high his glucoses. So far he has not needed any insulin. (7) Hypertension stable, Continue vital signs monitor - Current Meds Current Meds: Current Medications Generic Name Dose Route Start Last Admin Trade Name Freq PRN Reason Stop Dose Admin Aspirin 81 mg 06/30/21 10:00 07/05/21 09:26 Aspirin Chew 81 Mg Tablet PO 81 mg DAILY JUAQUIN Administration Enoxaparin Sodium 40 mg 06/30/21 09:00 07/05/21 09:25 Enoxaparin 40 Mg/0.4 Ml Syringe SUBQ 40 mg DAILY JUAQUIN Administration Hydromorphone HCl 0.5 mg 10/26/21 22:00 06/30/21 20:38 Hydromorphone 0.5 Mg/0.5 Ml Syringe IVP 0.2 mg Q2H PRN Administration PAIN Oxycodone HCl 5 mg 07/01/21 10:19 07/02/21 08:17 Oxycodone 5 Mg Tablet PO 5 mg Q4HR PRN Administration PAIN Pantoprazole Sodium 40 mg 07/01/21 07:00 07/05/21 06:05 Pantoprazole 40 Mg Tablet PO 40 mg QDAC JUAQUIN Administration - Lab Result Fish Bone Diagrams: 07/05/21 09:27 07/05/21 09:27 - Additional Planning My Orders: My Active Orders 07/05/21 11:08 Turn and Reposition [RC] PRN 07/05/21 13:09 CUL, URINE [RM] Urgent 07/05/21 13:49 cefTRIAXone [Rocephin] 1 gm Sodium Chloride 0.9% Minibag [Normal Saline 0.9% Minibag] 100 ml IV DAILY 07/05/21 17:00 Saccharomyces Boulardii [Florastor] 250 mg PO BIDWM 07/06/21 05:00 CBC - COMP BLD CT W/AUTO DIFF [HEME] DAILYLAB CMP [COMPREHENSIVE METABOLIC PANEL] [CHEM] DAILYLAB 07/07/21 05:00 CBC - COMP BLD CT W/AUTO DIFF [HEME] DAILYLAB CMP [COMPREHENSIVE METABOLIC PANEL] [CHEM] DAILYLAB 07/08/21 05:00 CBC - COMP BLD CT W/AUTO DIFF [HEME] DAILYLAB CMP [COMPREHENSIVE METABOLIC PANEL] [CHEM] DAILYLAB 07/09/21 05:00 CBC - COMP BLD CT W/AUTO DIFF [HEME] DAILYLAB CMP [COMPREHENSIVE METABOLIC PANEL] [CHEM] DAILYLAB Subjective - Subjective Nursing Reports: Confused Objective Vital Signs: Vital Signs - 24 hr 07/04/21 07/05/21 16:34 00:10 Temperature 37.3 C 37.2 C Heart Rate [ 97 95 Brachial] Respiratory 18 16 Rate Blood Pressure 125/53 L [Right Ankle] Blood Pressure 141/56 H [Right Brachial artery] O2 Saturation 96 98 Oxygen O2 Source Room air I&O (Last 24 Hrs): Intake and Output Totals x24h 07/03/21 07/04/21 07/05/21 23:59 23:59 23:59 Intake Total 6555 372 420 Output Total 6997 3546 2514 Balance -2255 -6100 -1155 General: Alert, No acute distress HEENT: Atraumatic Neck: Supple Lymphatic: no adenopathy Neuro: Alert, Non Focal Cardiovascular: Regular rate, Normal S1, Normal S2 Respiratory: Chest non-tender, No respiratory distress Abdomen: Normal bowel sounds, Soft, No tenderness Extremities: Normal pulses - Results Results: Laboratory Results WBC 15.6 x10^3/uL (4.8-10.8) H 07/05/21 09:27 RBC 3.42 10^6/uL (4.70-6.10) L 07/05/21 09:27 Hgb 11.3 g/dL (14.0-18.0) L 07/05/21 09:27 Hct 34.4 % (42.0-52.0) L 07/05/21 09:27 MCV 100.6 fL (80.0-94.0) H 07/05/21 09:27 MCH 33.0 pg (27.0-31.0) H 07/05/21 09:27 MCHC 32.8 g/dL (32.0-36.0) 07/05/21 09: RDW 13.9 % (12.0-15.0) 07/05/21 09:27 Plt Count 269 10^3/uL (130-450) 07/05/21 09:27 MPV 9.8 fL (7.4-11.4) 07/05/21 09:27 Neut # (Auto) 12.2 10^3/uL (1.5-6.6) H 07/05/21 09:27 Lymph # (Auto) 2.2 10^3/uL (1.5-3.5) 07/05/21 09:27 [place] # (Auto) 0.8 10^3/uL (0.0-1.0) 07/05/21 09:27 Eos # (Auto) 0.2 10^3/uL (0.0-0.7) 07/05/21 09:27 Baso # (Auto) 0.0 10^3/uL (0.0-0.1) 07/05/21 09:27 Absolute Nucleated RBC 0.00 x10^3/uL 07/05/21 09:27 Total Counted 100 06/30/21 04:25 Band Neuts % (Manual) 4 % (0-10) 06/30/21 04:25 Abnorm Lymph % (Manual) 0 % 06/30/21 04:25 Nucleated RBC % 0.0 /100WBC 07/05/21 09:27 Neutrophils # (Manual) 8.3 10^3/uL (1.5-6.6) H 06/30/21 04:25 Lymphocytes # (Manual) 1.3 10^3/uL (1.5-3.5) L 06/30/21 04:25 Monocytes # (Manual) 0.2 10^3/uL (0.0-1.0) 06/30/21 04:25 Eosinophils # (Manual) 0.3 10^3/uL (0-0.7) 06/30/21 04:25 Basophils # (Manual) 0.0 10^3/uL (0-0.1) 06/30/21 04:25 Differential Comment MANUAL DIFFERENTIAL 06/30/21 04:25 Platelet Estimate NORMAL (130-450,000) (NORMAL) 06/30/21 04:25 RBC Morph Micro Appear NORMAL APPEARANCE (NORMAL) 06/30/21 04:25 Sodium 136 mmol/L (135-145) 07/05/21 09:27 Potassium 3.7 mmol/L (3.5-5.0) 07/05/21 09:27 Chloride 101 mmol/L (101-111) 07/05/21 09:27 Carbon Dioxide 27 mmol/L (21-32) 07/05/21 09:27 Anion Gap 8.0 (6-13) 07/05/21 09:27 BUN 19 mg/dL (6-20) 07/05/21 09:27 Creatinine 1.2 mg/dL (0.6-1.2) 07/05/21 09:27 Estimated GFR (MDRD) 58 (>89) L 07/05/21 09:27 Glucose 167 mg/dL (70-100) H 07/05/21 09:27 Estimat Average Glucose 123 mg/dL (70-100) H 06/29/21 04:32 Hemoglobin A1c % 5.9 % (4.27-6.07) 06/29/21 04:32 Calcium 8.7 mg/dL (8.5-10.3) 07/05/21 09:27 Total Bilirubin 1.1 mg/dL (0.2-1.0) H 07/05/21 09:27 AST 87 IU/L (10-42) H 07/05/21 09:27 ALT 110 IU/L (10-60) H 07/05/21 09:27 Alkaline Phosphatase 37 IU/L (42-121) L 07/05/21 09:27 Troponin I High Sens 19.2 ng/L (2.3-19.7) 06/30/21 11:38 Total Protein 6.2 g/dL (6.7-8.2) L 07/05/21 09:27 Albumin 2.9 g/dL (3.2-5.5) L 07/05/21 09:27 Globulin 3.3 g/dL (2.1-4.2) 07/05/21 09:27 Albumin/Globulin Ratio 0.9 (1.0-2.2) L 07/05/21 09:27 Lipase 40 U/L (22-51) 06/28/21 15:36 Vitamin B12 785 pg/mL (180-914) 06/30/21 09:19 Folate 35.00 ng/mL (5.90 - >24.8) 06/30/21 09:19 Urine Color YELLOW 07/05/21 13:09 Urine Clarity HAZY (CLEAR) 07/05/21 13:09 Urine pH 7.0 PH (5.0-7.5) 07/05/21 13:09 Ur Specific [place] 1.010 (1.002-1.030) 07/05/21 13:09 Urine Protein NEGATIVE mg/dL (NEGATIVE) 07/05/21 13:09 Urine Glucose (UA) NEGATIVE mg/dL (NEGATIVE) 07/05/21 13:09 Urine Ketones NEGATIVE mg/dL (NEGATIVE) 07/05/21 13:09 Urine Occult Blood SMALL (NEGATIVE) H 07/05/21 13:09 Urine Nitrite NEGATIVE (NEGATIVE) 07/05/21 13:09 Urine Bilirubin NEGATIVE (NEGATIVE) 07/05/21 13:09 Urine Urobilinogen 0.2 (NORMAL) E.U./dL (NORMAL) 07/05/21 13:09 Ur Leukocyte Esterase LARGE (NEGATIVE) H 07/05/21 13:09 Urine RBC 0-5 /HPF (0-5) 07/05/21 13:09 Urine WBC >25 /HPF (0-3) H 07/05/21 13:09 Ur Squamous Epith Cells NONE SEEN (<= Few) 07/05/21 13:09 Urine Bacteria Many /HPF (None Seen) H 07/05/21 13:09 Ur Microscopic Review NOT INDICATED 06/28/21 15:47 Urine Culture Comments INDICATED 07/05/21 13:09 Nasal Adenovirus (PCR) NOT DETECTED 06/29/21 23:55 Nasal B. parapertussis DNA (PCR) NOT DETECTED 06/29/21 23:55 Nasal Coronavir 229E PCR NOT DETECTED 06/29/21 23:55 Nasal Coronavir HKU1 PCR NOT DETECTED 06/29/21 23:55 Nasal Coronavir NL63 PCR NOT DETECTED 06/29/21 23:55 Nasal Coronavir OC43 PCR NOT DETECTED 06/29/21 23:55 Nasal Enterovir/Rhinovir PCR NOT DETECTED 06/29/21 23:55 Nasal Influenza B PCR NOT DETECTED 06/29/21 23:55 Nasal Influenza A PCR NOT DETECTED 06/29/21 23:55 Nasal Parainfluen 1 PCR NOT DETECTED 06/29/21 23:55 Nasal Parainfluen 2 PCR NOT DETECTED 06/29/21 23:55 Nasal Parainfluen 3 PCR NOT DETECTED 06/29/21 23:55 Nasal Parainfluen 4 PCR NOT DETECTED 06/29/21 23:55 Nasal RSV (PCR) NOT DETECTED 06/29/21 23:55 Nasal Screen MRSA (PCR) NEGATIVE (NEGATIVE) 06/28/21 22:35 Nasal B.pertussis DNA PCR NOT DETECTED 06/29/21 23:55 Nasal C.pneumoniae (PCR) NOT DETECTED 06/29/21 23:55 Chris Human Metapneumo PCR NOT DETECTED 06/29/21 23:55 Nasal M.pneumoniae (PCR) NOT DETECTED 06/29/21 23:55 Nasal SARS-CoV-2 (PCR) NOT DETECTED 06/29/21 23:55 ABX Reporting Has patient been on IV antibiotics over the past 48 hours?: Yes Current Medications - Current Medications Current Medications: Active Medications Aspirin (Aspirin Chew 81 Mg Tablet) 81 mg PO DAILY JUAQUIN Last Admin: 07/05/21 09:26 Dose: 81 mg Documented by: Benzocaine/Butamben/Tetracaine HCl (Benzocaine/Tetracaine/Butamben 20 Gm) 1 sprays MM DAILY PRN PRN Reason: Throat Pain Enoxaparin Sodium (Enoxaparin 40 Mg/0.4 Ml Syringe) 40 mg SUBQ DAILY [facility] Last Admin: 07/05/21 09:25 Dose: 40 mg Documented by: Hydromorphone HCl (Hydromorphone 0.5 Mg/0.5 Ml Syringe) 0.5 mg IVP Q2H PRN PRN Reason: PAIN Last Admin: 06/30/21 20:38 Dose: 0.2 mg Documented by: Ceftriaxone Sodium 1 gm/ (Sodium Chloride) 100 mls @ 200 mls/hr IV DAILY [facility] Mineral Oil (Min Oil/Dimethicon/Coconut Oil 92 Gm Tube) 1 applic TOP PRN PRN PRN Reason: Skin Care Ondansetron HCl (Ondansetron 4 Mg/2 Ml Vial) 4 mg IVP Q6H PRN PRN Reason: Nausea / Vomiting Oxycodone HCl (Oxycodone 5 Mg Tablet) 5 mg PO Q4HR PRN PRN Reason: PAIN Last Admin: 07/02/21 08:17 Dose: 5 mg Documented by: Pantoprazole Sodium (Pantoprazole 40 Mg Tablet) 40 mg PO QDAC [facility] Last Admin: 07/05/21 06:05 Dose: 40 mg Documented by: Saccharomyces Boulardii (Saccharomyces Boulardii 250 Mg Capsule) 250 mg PO BIDWM [facility] Tamsulosin HCl (Tamsulosin 0.4 Mg Capsule) 0.4 mg PO BID [facility] Atorvastatin [Lipitor] 40 mg PO DAILY 06/28/21
[2021-07-05] MEDS: cefTRIAXone 1 GM in SODIUM CHLORIDE 0.9% MINIBAG 100 ML IV SCH (16:42)
[2021-07-05] MEDS: SACCHAROMYCES BOULARDII 250 MG CAPSULE PO SCH (17:17)
[2021-07-06 04:56] LABS: BASOPHILS % (AUTO) 0.1 %; EOSINOPHILS # (AUTO) 0.2 10^3/uL (0.0-0.7); EOSINOPHILS % (AUTO) 1.5 %; HCT - HEMATOCRIT 32.4 % (42.0-52.0); HGB - HEMOGLOBIN 10.8 g/dL (14.0-18.0); LYMPHOCYTES # (AUTO) 3.2 10^3/uL (1.5-3.5); LYMPHOCYTES % (AUTO) 21.9 %; MEAN CORPUSCULAR HEMOGLOBIN 33.3 pg (27.0-31.0); MEAN CORPUSCULAR HGB CONC 33.3 g/dL (32.0-36.0); MEAN PLATELET VOLUME 9.4 fL (7.4-11.4); MONOCYTES # (AUTO) 0.9 10^3/uL (0.0-1.0); MONOCYTES % (AUTO) 6.2 %; NEUTROPHILS % (AUTO) 69.3 %; PLT - PLATELET COUNT 291 10^3/uL (130-450); RED BLOOD COUNT 3.24 10^6/uL (4.70-6.10); RED CELL DISTRIBUTION WIDTH 14.2 % (12.0-15.0); WHITE BLOOD COUNT 14.4 x10^3/uL (4.8-10.8)
[2021-07-06 05:07] LABS: ALBUMIN 2.8 g/dL (3.2-5.5); ALBUMIN/GLOBULIN RATIO 0.8 (1.0-2.2); BILIRUBIN,TOTAL 0.8 mg/dL (0.2-1.0); CALCIUM 8.5 mg/dL (8.5-10.3); CREATININE 1.1 mg/dL (0.6-1.2); POTASSIUM 3.9 mmol/L (3.5-5.0); TOTAL PROTEIN 6.2 g/dL (6.7-8.2)
[2021-07-06] MEDS: PANTOPRAZOLE 40 MG TABLET PO SCH (06:47)
[2021-07-06] MEDS: SACCHAROMYCES BOULARDII 250 MG CAPSULE PO SCH ×2 (08:36→20:38)
[2021-07-06] MEDS: TAMSULOSIN 0.4 MG CAPSULE PO SCH ×2 (08:36→20:38)
[2021-07-06] MEDS: ASPIRIN CHEW 81 MG TABLET PO SCH (08:36)
[2021-07-06] MEDS: ENOXAPARIN 40 MG/0.4 ML SYRINGE SUBQ SCH (08:37)
[2021-07-06] MEDS: cefTRIAXone 1 GM in SODIUM CHLORIDE 0.9% MINIBAG 100 ML IV SCH (08:51)
--- NOTE | 2021-07-06 13:43 | PROVIDER PROGRESS NOTE ---
Assessment/Plan - Problem List (1) Intestinal obstruction Assessment/Plan: 07/06 pt ate 100% of his diet with bowel movements, stable. 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 The ostomy nurses work with the patient, and his daughter for the ostomy care. (2) Urinary retention 07/06 it seems resolved. pt urinate by himself. continue flomax. surgeon will try once for off Bañuelos, continue Flomax bid. continue nurse care, monitor urinary retention. (3)UTI 07/06 UA show gram negative bacterial, WBC is reduced. pt has no fever. blood culture is pending, UA sensitivity study is pending now. continue Antibiotics and probiotics pt has Elevated WBC, slight elevated tem but not fever, and urinalysis reveal UTI. pt is Hemodynamic stable. Patient had history of advanced dementia. start with IV Rocephin, Follow-up with UA culture and sensitivity study. (4) dementia without behavioral disturbance as pt's hx, continue to have poorly clinic presentation. Family is taking care of patient well, ask d/c to home with family care. Consult with social work for disposition planning. (5) Atrial fibrillation stable, HR is 95 now. He initially had atrial fibrillation only in the operating room and by the time he got to recovery the A. fib had resolved. It returned again on the morning of the . Troponin was unremarkable. Chest x-ray was unremarkable. Started on metoprolol. Says he has a history of falls, only on aspirin and not a DOAC. Echocardiogram June 29 had a ejection fraction of 60 to 65%. Right ventricle normal size and function. Both atria size were normal. No valvular heart disease. He converted to sinus rhythm yesterday morning. We are holding metoprolol because of low blood pressure. As of today, no atrial fibrillation. (6) Diabetes mellitus Glucose was elevated on admission. A1c is 5.9%. We will continue to monitor and sliding scale insulin will be provided depending on how high his glucoses. So far he has not needed any insulin. (7) Hypertension stable, Continue vital signs monitor - Current Meds Current Meds: Current Medications Generic Name Dose Route Start Last Admin Trade Name Freq PRN Reason Stop Dose Admin Aspirin 81 mg 06/30/21 10:00 07/06/21 08:36 Aspirin Chew 81 Mg Tablet PO 81 mg DAILY JUAQUIN Administration Enoxaparin Sodium 40 mg 06/30/21 09:00 07/06/21 08:37 Enoxaparin 40 Mg/0.4 Ml Syringe SUBQ 40 mg DAILY JUAQUIN Administration Hydromorphone HCl 0.5 mg 06/28/21 22:00 06/30/21 20:38 Hydromorphone 0.5 Mg/0.5 Ml Syringe IVP 0.2 mg Q2H PRN Administration PAIN Ceftriaxone Sodium 1 gm/ 100 mls @ 200 mls/hr 07/05/21 13:49 07/06/21 09:35 Sodium Chloride IV Infused DAILY JUAQUIN Infusion Oxycodone HCl 5 mg 07/01/21 10:19 07/02/21 08:17 Oxycodone 5 Mg Tablet PO 5 mg Q4HR PRN Administration PAIN Pantoprazole Sodium 40 mg 07/01/21 07:00 07/06/21 06:47 Pantoprazole 40 Mg Tablet PO 40 mg QDAC JUAQUIN Administration Saccharomyces Boulardii 250 mg 07/05/21 17:00 07/06/21 08:36 Saccharomyces Boulardii 250 Mg Capsule PO 250 mg BIDWM JUAQUIN Administration Tamsulosin HCl 0.4 mg 07/05/21 21:00 07/06/21 08:36 Tamsulosin 0.4 Mg Capsule PO 0.4 mg BID JUAQUIN Administration - Lab Result Fish Bone Diagrams: 07/06/21 04:23 07/06/21 04:23 - Additional Planning My Orders: My Active Orders 07/05/21 13:09 CUL, URINE [RM] Urgent 07/05/21 13:49 cefTRIAXone [Rocephin] 1 gm Sodium Chloride 0.9% Minibag [Normal Saline 0.9% Minibag] 100 ml IV DAILY 07/05/21 17:00 Saccharomyces Boulardii [Florastor] 250 mg PO BIDWM 07/06/21 07:37 Blood Culture [CULTURE, BLOOD #1] [RM] Urgent 07/06/21 07:44 Blood Culture [CULTURE, BLOOD #2] [RM] Urgent 07/07/21 05:00 CBC - COMP BLD CT W/AUTO DIFF [HEME] DAILYLAB CMP [COMPREHENSIVE METABOLIC PANEL] [CHEM] DAILYLAB 07/08/21 05:00 CBC - COMP BLD CT W/AUTO DIFF [HEME] DAILYLAB CMP [COMPREHENSIVE METABOLIC PANEL] [CHEM] DAILYLAB 07/09/21 05:00 CBC - COMP BLD CT W/AUTO DIFF [HEME] DAILYLAB CMP [COMPREHENSIVE METABOLIC PANEL] [CHEM] DAILYLAB Subjective - Subjective Nursing Reports: Confused Objective Vital Signs: Vital Signs - 24 hr 07/05/21 07/05/21 07/06/21 16:20 23:50 08:18 Temperature 37.4 C 37.4 C 37 C Heart Rate [ 93 90 89 Brachial] Respiratory 18 18 20 Rate Blood Pressure 105/47 L [Left Brachial artery] Blood Pressure 134/60 H 98/51 L [Right Brachial artery] O2 Saturation 98 98 96 Oxygen O2 Source Room air I&O (Last 24 Hrs): Intake and Output Totals x24h 07/04/21 07/05/21 07/06/21 23:59 23:59 23:59 Intake Total 620 760 620 Output Total 2300 1775 Balance -1680 -1015 620 General: Alert, No acute distress HEENT: Atraumatic Neck: Supple Lymphatic: no adenopathy Neuro: Alert, Non Focal Cardiovascular: Regular rate, Normal S1, Normal S2 Respiratory: Chest non-tender, No respiratory distress Abdomen: Normal bowel sounds, Soft Extremities: Normal pulses - Results Results: Laboratory Results WBC 14.4 x10^3/uL (4.8-10.8) H 07/06/21 04:23 RBC 3.24 10^6/uL (4.70-6.10) L 07/06/21 04:23 Hgb 10.8 g/dL (14.0-18.0) L 07/06/21 04:23 Hct 32.4 % (42.0-52.0) L 07/06/21 04:23 MCV 100.0 fL (80.0-94.0) H 07/06/21 04:23 MCH 33.3 pg (27.0-31.0) H 07/06/21 04:23 MCHC 33.3 g/dL (32.0-36.0) 07/06/21 04:23 RDW 14.2 % (12.0-15.0) 07/06/21 04:23 Plt Count 291 10^3/uL (130-450) 07/06/21 04:23 MPV 9.4 fL (7.4-11.4) 07/06/21 04:23 Neut # (Auto) 10.0 10^3/uL (1.5-6.6) H 07/06/21 04:23 Lymph # (Auto) 3.2 10^3/uL (1.5-3.5) 07/06/21 04:23 [place] # (Auto) 0.9 10^3/uL (0.0-1.0) 07/06/21 04:23 Eos # (Auto) 0.2 10^3/uL (0.0-0.7) 07/06/21 04:23 Baso # (Auto) 0.0 10^3/uL (0.0-0.1) 07/06/21 04:23 Absolute Nucleated RBC 0.00 x10^3/uL 07/06/21 04:23 Total Counted 100 06/30/21 04:25 Band Neuts % (Manual) 4 % (0-10) 06/30/21 04:25 Abnorm Lymph % (Manual) 0 % 06/30/21 04:25 Nucleated RBC % 0.0 /100WBC 07/06/21 04:23 Neutrophils # (Manual) 8.3 10^3/uL (1.5-6.6) H 06/30/21 04:25 Lymphocytes # (Manual) 1.3 10^3/uL (1.5-3.5) L 06/30/21 04:25 Monocytes # (Manual) 0.2 10^3/uL (0.0-1.0) 06/30/21 04:25 Eosinophils # (Manual) 0.3 10^3/uL (0-0.7) 06/30/21 04:25 Basophils # (Manual) 0.0 10^3/uL (0-0.1) 06/30/21 04:25 Differential Comment MANUAL DIFFERENTIAL 06/30/21 04:25 Platelet Estimate NORMAL (130-450,000) (NORMAL) 06/30/21 04:25 RBC Morph Micro Appear NORMAL APPEARANCE (NORMAL) 06/30/21 04:25 Sodium 138 mmol/L (135-145) 07/06/21 04:23 Potassium 3.9 mmol/L (3.5-5.0) 07/06/21 04:23 Chloride 102 mmol/L (101-111) 07/06/21 04:23 Carbon Dioxide 27 mmol/L (21-32) 07/06/21 04:23 Anion Gap 9.0 (6-13) 07/06/21 04:23 BUN 23 mg/dL (6-20) H 07/06/21 04:23 Creatinine 1.1 mg/dL (0.6-1.2) 07/06/21 04:23 Estimated GFR (MDRD) 64 (>89) L 07/06/21 04:23 Glucose 113 mg/dL (70-100) H 07/06/21 04:23 Estimat Average Glucose 123 mg/dL (70-100) H 06/29/21 04:32 Hemoglobin A1c % 5.9 % (4.27-6.07) 06/29/21 04:32 Calcium 8.5 mg/dL (8.5-10.3) 07/06/21 04:23 Total Bilirubin 0.8 mg/dL (0.2-1.0) 07/06/21 04:23 AST 76 IU/L (10-42) H 07/06/21 04:23 ALT 97 IU/L (10-60) H 07/06/21 04:23 Alkaline Phosphatase 34 IU/L (42-121) L 07/06/21 04:23 Troponin I High Sens 19.2 ng/L (2.3-19.7) 06/30/21 11:38 Total Protein 6.2 g/dL (6.7-8.2) L 07/06/21 04:23 Albumin 2.8 g/dL (3.2-5.5) L 07/06/21 04:23 Globulin 3.4 g/dL (2.1-4.2) 07/06/21 04:23 Albumin/Globulin Ratio 0.8 (1.0-2.2) L 07/06/21 04:23 Lipase 40 U/L (22-51) 06/28/21 15:36 Vitamin B12 785 pg/mL (180-914) 06/30/21 09:19 Folate 35.00 ng/mL (5.90 - >24.8) 06/30/21 09:19 Urine Color YELLOW 07/05/21 13:09 Urine Clarity HAZY (CLEAR) 07/05/21 13:09 Urine pH 7.0 PH (5.0-7.5) 07/05/21 13:09 Ur Specific [place] 1.010 (1.002-1.030) 07/05/21 13:09 Urine Protein NEGATIVE mg/dL (NEGATIVE) 07/05/21 13:09 Urine Glucose (UA) NEGATIVE mg/dL (NEGATIVE) 07/05/21 13:09 Urine Ketones NEGATIVE mg/dL (NEGATIVE) 07/05/21 13:09 Urine Occult Blood SMALL (NEGATIVE) H 07/05/21 13:09 Urine Nitrite NEGATIVE (NEGATIVE) 07/05/21 13:09 Urine Bilirubin NEGATIVE (NEGATIVE) 07/05/21 13:09 Urine Urobilinogen 0.2 (NORMAL) E.U./dL (NORMAL) 07/05/21 13:09 Ur Leukocyte Esterase LARGE (NEGATIVE) H 07/05/21 13:09 Urine RBC 0-5 /HPF (0-5) 07/05/21 13:09 Urine WBC >25 /HPF (0-3) H 07/05/21 13:09 Ur Squamous Epith Cells NONE SEEN (<= Few) 07/05/21 13:09 Urine Bacteria Many /HPF (None Seen) H 07/05/21 13:09 Ur Microscopic Review NOT INDICATED 06/28/21 15:47 Urine Culture Comments INDICATED 07/05/21 13:09 Nasal Adenovirus (PCR) NOT DETECTED 06/29/21 23:55 Nasal B. parapertussis DNA (PCR) NOT DETECTED 06/29/21 23:55 Nasal Coronavir 229E PCR NOT DETECTED 06/29/21 23:55 Nasal Coronavir HKU1 PCR NOT DETECTED 06/29/21 23:55 Nasal Coronavir NL63 PCR NOT DETECTED 06/29/21 23:55 Nasal Coronavir OC43 PCR NOT DETECTED 06/29/21 23:55 Nasal Enterovir/Rhinovir PCR NOT DETECTED 06/29/21 23:55 Nasal Influenza B PCR NOT DETECTED 06/29/21 23:55 Nasal Influenza A PCR NOT DETECTED 06/29/21 23:55 Nasal Parainfluen 1 PCR NOT DETECTED 06/29/21 23:55 Nasal Parainfluen 2 PCR NOT DETECTED 06/29/21 23:55 Nasal Parainfluen 3 PCR NOT DETECTED 06/29/21 23:55 Nasal Parainfluen 4 PCR NOT DETECTED 06/29/21 23:55 Nasal RSV (PCR) NOT DETECTED 06/29/21 23:55 Nasal Screen MRSA (PCR) NEGATIVE (NEGATIVE) 06/28/21 22:35 Nasal B.pertussis DNA PCR NOT DETECTED 06/29/21 23:55 Nasal C.pneumoniae (PCR) NOT DETECTED 06/29/21 23:55 Chris Human Metapneumo PCR NOT DETECTED 06/29/21 23:55 Nasal M.pneumoniae (PCR) NOT DETECTED 06/29/21 23:55 Nasal SARS-CoV-2 (PCR) NOT DETECTED 06/29/21 23:55 ABX Reporting Has patient been on IV antibiotics over the past 48 hours?: Yes Current Medications - Current Medications Current Medications: Active Medications Aspirin (Aspirin Chew 81 Mg Tablet) 81 mg PO DAILY [facility] Last Admin: 07/06/21 08:36 Dose: 81 mg Documented by: Benzocaine/Butamben/Tetracaine HCl (Benzocaine/Tetracaine/Butamben 20 Gm) 1 sprays MM DAILY PRN PRN Reason: Throat Pain Enoxaparin Sodium (Enoxaparin 40 Mg/0.4 Ml Syringe) 40 mg SUBQ DAILY [facility] Last Admin: 07/06/21 08:37 Dose: 40 mg Documented by: Hydromorphone HCl (Hydromorphone 0.5 Mg/0.5 Ml Syringe) 0.5 mg IVP Q2H PRN PRN Reason: PAIN Last Admin: 06/30/21 20:38 Dose: 0.2 mg Documented by: Ceftriaxone Sodium 1 gm/ (Sodium Chloride) 100 mls @ 200 mls/hr IV DAILY [facility] Last Infusion: 07/06/21 09:35 Dose: Infused Documented by: Mineral Oil (Min Oil/Dimethicon/Coconut Oil 92 Gm Tube) 1 applic TOP PRN PRN PRN Reason: Skin Care Ondansetron HCl (Ondansetron 4 Mg/2 Ml Vial) 4 mg IVP Q6H PRN PRN Reason: Nausea / Vomiting Oxycodone HCl (Oxycodone 5 Mg Tablet) 5 mg PO Q4HR PRN PRN Reason: PAIN Last Admin: 07/02/21 08:17 Dose: 5 mg Documented by: Pantoprazole Sodium (Pantoprazole 40 Mg Tablet) 40 mg PO QDAC [facility] Last Admin: 07/06/21 06:47 Dose: 40 mg Documented by: Saccharomyces Boulardii (Saccharomyces Boulardii 250 Mg Capsule) 250 mg PO BIDWM [facility] Last Admin: 07/06/21 08:36 Dose: 250 mg Documented by: Tamsulosin HCl (Tamsulosin 0.4 Mg Capsule) 0.4 mg PO BID [facility] Last Admin: 07/06/21 08:36 Dose: 0.4 mg Documented by: Atorvastatin [Lipitor] 40 mg PO DAILY 06/28/21
--- NOTE | 2021-07-06 17:14 | PROVIDER PROGRESS NOTE ---
Subjective - General Admit Date: 06/28/21 Procedure Date: 06/28/21 Post Op Days: 8 Procedure Performed: Colostomy - Review of Systems Wound/Incisions: positive: Healing well General: positive: No symptoms All Other Systems: positive: Other (Due to his dementia, review of systems is obtained from his daughter) - Other Other Information/Narrative: Mr. Tom appears comfortable and denies abdominal pain. Able to urinate without the catheter now. WBC improved today. Culture pending Objective - Patient Data Reviewed Vital Signs: Yes Vital Signs: Intake and Output 07/03/21 07/04/21 07/05/21 07/06/21 23:59 23:59 23:59 23:59 Intake Total 1885 620 760 620 Output Total 4250 2300 1775 Balance -2365 -1680 -1015 620 Intake: Intake, IV Amount 100 100 [id number] 1 gm In 100 100 Sodium Chloride 0.9% Minibag 100 ml @ 200 mls/ hr IV DAILY [facility] Rx#: [id number] Oral 1885 620 660 520 Output: Urine 3950 2300 1225 Stool 300 550 Other: # Voids 2 2 1 % Meal consumed 100% 100% 100% 100% Vital Signs 06/28/21 06/28/21 06/28/21 15:05 15:07 17:55 Temperature 36.5 C Heart Rate 105 H 104 H 107 H Heart Rate [ Brachial] Heart Rate [ Monitoring electrodes] Heart Rate [ Supine] Respiratory 15 20 Rate Blood Pressure 111/63 163/88 H Blood Pressure [Left Brachial artery] Blood Pressure [Right Ankle] Blood Pressure [Right Brachial artery] Blood Pressure [Supine] O2 Saturation 94 97 06/28/21 06/28/21 06/28/21 19:00 19:32 21:21 Temperature 36.9 C 36.5 C Heart Rate 88 80 Heart Rate [ Brachial] Heart Rate [ Monitoring electrodes] Heart Rate [ Supine] Respiratory 15 16 18 Rate Blood Pressure 162/88 H 152/80 H Blood Pressure [Left Brachial artery] Blood Pressure [Right Ankle] Blood Pressure [Right Brachial artery] Blood Pressure [Supine] O2 Saturation 94 96 06/28/21 06/28/21 06/28/21 21:40 21:45 21:50 Temperature 36.3 C L 36.3 C L 36.5 C Heart Rate 78 76 70 Heart Rate [ Brachial] Heart Rate [ Monitoring electrodes] Heart Rate [ Supine] Respiratory 20 20 19 Rate Blood Pressure 158/77 H 158/77 H 161/76 H Blood Pressure [Left Brachial artery] Blood Pressure [Right Ankle] Blood Pressure [Right Brachial artery] Blood Pressure [Supine] O2 Saturation 100 100 100 06/28/21 06/28/21 06/28/21 21:55 22:05 22:16 Temperature 36.5 C 36.5 C 36.5 C Heart Rate 77 72 76 Heart Rate [ Brachial] Heart Rate [ Monitoring electrodes] Heart Rate [ Supine] Respiratory 18 20 20 Rate Blood Pressure 149/72 H 153/68 H 161/66 H Blood Pressure [Left Brachial artery] Blood Pressure [Right Ankle] Blood Pressure [Right Brachial artery] Blood Pressure [Supine] O2 Saturation 100 100 96 06/28/21 06/28/21 06/28/21 22:37 22:45 23:00 Temperature 36.6 C Heart Rate 80 Heart Rate [ Brachial] Heart Rate [ 79 71 Monitoring electrodes] Heart Rate [ Supine] Respiratory 18 18 17 Rate Blood Pressure Blood Pressure 150/85 H 145/81 H [Left Brachial artery] Blood Pressure [Right Ankle] Blood Pressure [Right Brachial artery] Blood Pressure [Supine] O2 Saturation 96 96 06/28/21 06/28/21 06/28/21 23:01 23:05 23:10 Temperature Heart Rate 76 76 80 Heart Rate [ Brachial] Heart Rate [ Monitoring electrodes] Heart Rate [ Supine] Respiratory 17 18 13 Rate Blood Pressure 140/70 H Blood Pressure [Left Brachial artery] Blood Pressure [Right Ankle] Blood Pressure [Right Brachial artery] Blood Pressure [Supine] O2 Saturation 06/28/21 06/28/21 06/28/21 23:15 23:16 23:20 Temperature Heart Rate 80 69 70 Heart Rate [ Brachial] Heart Rate [ Monitoring electrodes] Heart Rate [ Supine] Respiratory 10 L 16 15 Rate Blood Pressure 132/66 H Blood Pressure [Left Brachial artery] Blood Pressure [Right Ankle] Blood Pressure [Right Brachial artery] Blood Pressure [Supine] O2 Saturation 06/28/21 06/28/21 06/28/21 23:25 23:30 23:31 Temperature 36.4 C L Heart Rate 69 76 77 Heart Rate [ Brachial] Heart Rate [ 78 Monitoring electrodes] Heart Rate [ Supine] Respiratory 16 10 L 7 L Rate Blood Pressure 133/65 H Blood Pressure 133/65 H [Left Brachial artery] Blood Pressure [Right Ankle] Blood Pressure [Right Brachial artery] Blood Pressure [Supine] O2 Saturation 98 06/28/21 06/28/21 06/28/21 23:35 23:40 23:45 Temperature Heart Rate 78 83 76 Heart Rate [ Brachial] Heart Rate [ Monitoring electrodes] Heart Rate [ Supine] Respiratory 14 15 16 Rate Blood Pressure Blood Pressure [Left Brachial artery] Blood Pressure [Right Ankle] Blood Pressure [Right Brachial artery] Blood Pressure [Supine] O2 Saturation 06/28/21 06/28/21 06/29/21 23:50 23:55 00:00 Temperature Heart Rate 79 76 76 Heart Rate [ Brachial] Heart Rate [ Monitoring electrodes] Heart Rate [ Supine] Respiratory 15 18 15 Rate Blood Pressure Blood Pressure [Left Brachial artery] Blood Pressure [Right Ankle] Blood Pressure [Right Brachial artery] Blood Pressure [Supine] O2 Saturation 06/29/21 06/29/21 06/29/21 00:01 00:05 00:10 Temperature Heart Rate 86 77 83 Heart Rate [ Brachial] Heart Rate [ 79 Monitoring electrodes] Heart Rate [ Supine] Respiratory 15 15 18 Rate Blood Pressure 134/66 H Blood Pressure 134/66 H [Left Brachial artery] Blood Pressure [Right Ankle] Blood Pressure [Right Brachial artery] Blood Pressure [Supine] O2 Saturation 98 06/29/21 06/29/21 06/29/21 00:15 00:20 00:25 Temperature Heart Rate 82 78 77 Heart Rate [ Brachial] Heart Rate [ Monitoring electrodes] Heart Rate [ Supine] Respiratory 17 16 16 Rate Blood Pressure Blood Pressure [Left Brachial artery] Blood Pressure [Right Ankle] Blood Pressure [Right Brachial artery] Blood Pressure [Supine] O2 Saturation 06/29/21 06/29/21 06/29/21 00:30 00:31 00:35 Temperature Heart Rate 83 75 70 Heart Rate [ Brachial] Heart Rate [ Monitoring electrodes] Heart Rate [ Supine] Respiratory 12 13 12 Rate Blood Pressure 112/57 L Blood Pressure [Left Brachial artery] Blood Pressure [Right Ankle] Blood Pressure [Right Brachial artery] Blood Pressure [Supine] O2 Saturation 06/29/21 06/29/21 06/29/21 00:40 00:45 00:50 Temperature Heart Rate 82 73 86 Heart Rate [ Brachial] Heart Rate [ Monitoring electrodes] Heart Rate [ Supine] Respiratory 22 16 18 Rate Blood Pressure Blood Pressure [Left Brachial artery] Blood Pressure [Right Ankle] Blood Pressure [Right Brachial artery] Blood Pressure [Supine] O2 Saturation 06/29/21 06/29/21 06/29/21 00:55 01:00 01:01 Temperature Heart Rate 85 75 85 Heart Rate [ Brachial] Heart Rate [ Monitoring electrodes] Heart Rate [ Supine] Respiratory 16 12 18 Rate Blood Pressure 103/61 Blood Pressure [Left Brachial artery] Blood Pressure [Right Ankle] Blood Pressure [Right Brachial artery] Blood Pressure [Supine] O2 Saturation 06/29/21 06/29/21 06/29/21 01:05 01:08 01:10 Temperature Heart Rate 64 77 Heart Rate [ Brachial] Heart Rate [ 76 Monitoring electrodes] Heart Rate [ Supine] Respiratory 13 17 19 Rate Blood Pressure Blood Pressure 103/61 [Left Brachial artery] Blood Pressure [Right Ankle] Blood Pressure [Right Brachial artery] Blood Pressure [Supine] O2 Saturation 99 06/29/21 06/29/21 06/29/21 01:15 01:20 01:25 Temperature Heart Rate 81 66 79 Heart Rate [ Brachial] Heart Rate [ Monitoring electrodes] Heart Rate [ Supine] Respiratory 18 17 19 Rate Blood Pressure Blood Pressure [Left Brachial artery] Blood Pressure [Right Ankle] Blood Pressure [Right Brachial artery] Blood Pressure [Supine] O2 Saturation 06/29/21 06/29/21 06/29/21 01:30 01:35 01:40 Temperature Heart Rate 67 72 77 Heart Rate [ Brachial] Heart Rate [ Monitoring electrodes] Heart Rate [ Supine] Respiratory 19 18 19 Rate Blood Pressure Blood Pressure [Left Brachial artery] Blood Pressure [Right Ankle] Blood Pressure [Right Brachial artery] Blood Pressure [Supine] O2 Saturation 06/29/21 06/29/21 06/29/21 01:45 01:50 01:55 Temperature Heart Rate 77 77 77 Heart Rate [ Brachial] Heart Rate [ Monitoring electrodes] Heart Rate [ Supine] Respiratory 18 13 17 Rate Blood Pressure Blood Pressure [Left Brachial artery] Blood Pressure [Right Ankle] Blood Pressure [Right Brachial artery] Blood Pressure [Supine] O2 Saturation 06/29/21 06/29/21 06/29/21 01:57 02:00 02:01 Temperature Heart Rate 91 82 Heart Rate [ Brachial] Heart Rate [ 74 Monitoring electrodes] Heart Rate [ Supine] Respiratory 8 L 18 18 Rate Blood Pressure 92/72 Blood Pressure 92/72 [Left Brachial artery] Blood Pressure [Right Ankle] Blood Pressure [Right Brachial artery] Blood Pressure [Supine] O2 Saturation 96 06/29/21 06/29/21 06/29/21 02:05 02:10 02:15 Temperature Heart Rate 79 77 67 Heart Rate [ Brachial] Heart Rate [ Monitoring electrodes] Heart Rate [ Supine] Respiratory 16 17 18 Rate Blood Pressure Blood Pressure [Left Brachial artery] Blood Pressure [Right Ankle] Blood Pressure [Right Brachial artery] Blood Pressure [Supine] O2 Saturation 06/29/21 06/29/21 06/29/21 02:20 02:25 02:30 Temperature Heart Rate 78 77 76 Heart Rate [ Brachial] Heart Rate [ Monitoring electrodes] Heart Rate [ Supine] Respiratory 15 19 Rate Blood Pressure Blood Pressure [Left Brachial artery] Blood Pressure [Right Ankle] Blood Pressure [Right Brachial artery] Blood Pressure [Supine] O2 Saturation 06/29/21 06/29/21 06/29/21 02:35 02:40 02:45 Temperature Heart Rate 82 81 73 Heart Rate [ Brachial] Heart Rate [ Monitoring electrodes] Heart Rate [ Supine] Respiratory 20 11 L 18 Rate Blood Pressure Blood Pressure [Left Brachial artery] Blood Pressure [Right Ankle] Blood Pressure [Right Brachial artery] Blood Pressure [Supine] O2 Saturation 06/29/21 06/29/21 06/29/21 02:50 02:55 02:59 Temperature Heart Rate 78 73 Heart Rate [ Brachial] Heart Rate [ 73 Monitoring electrodes] Heart Rate [ Supine] Respiratory 15 20 21 Rate Blood Pressure Blood Pressure 110/47 L [Left Brachial artery] Blood Pressure [Right Ankle] Blood Pressure [Right Brachial artery] Blood Pressure [Supine] O2 Saturation 98 06/29/21 06/29/21 06/29/21 03:00 03:01 03:05 Temperature Heart Rate 79 82 70 Heart Rate [ Brachial] Heart Rate [ Monitoring electrodes] Heart Rate [ Supine] Respiratory 15 18 19 Rate Blood Pressure 110/47 L Blood Pressure [Left Brachial artery] Blood Pressure [Right Ankle] Blood Pressure [Right Brachial artery] Blood Pressure [Supine] O2 Saturation 06/29/21 06/29/21 06/29/21 03:10 03:15 03:20 Temperature Heart Rate 79 75 75 Heart Rate [ Brachial] Heart Rate [ Monitoring electrodes] Heart Rate [ Supine] Respiratory 20 20 21 Rate Blood Pressure Blood Pressure [Left Brachial artery] Blood Pressure [Right Ankle] Blood Pressure [Right Brachial artery] Blood Pressure [Supine] O2 Saturation 06/29/21 06/29/21 06/29/21 03:25 03:30 03:35 Temperature Heart Rate 86 78 70 Heart Rate [ Brachial] Heart Rate [ Monitoring electrodes] Heart Rate [ Supine] Respiratory 17 19 21 Rate Blood Pressure Blood Pressure [Left Brachial artery] Blood Pressure [Right Ankle] Blood Pressure [Right Brachial artery] Blood Pressure [Supine] O2 Saturation 06/29/21 06/29/21 06/29/21 03:40 03:45 03:50 Temperature Heart Rate 80 81 70 Heart Rate [ Brachial] Heart Rate [ Monitoring electrodes] Heart Rate [ Supine] Respiratory 18 15 21 Rate Blood Pressure Blood Pressure [Left Brachial artery] Blood Pressure [Right Ankle] Blood Pressure [Right Brachial artery] Blood Pressure [Supine] O2 Saturation 06/29/21 06/29/21 06/29/21 03:55 04:00 04:01 Temperature Heart Rate 70 78 79 Heart Rate [ Brachial] Heart Rate [ Monitoring electrodes] Heart Rate [ Supine] Respiratory 19 13 19 Rate Blood Pressure 102/52 L Blood Pressure [Left Brachial artery] Blood Pressure [Right Ankle] Blood Pressure [Right Brachial artery] Blood Pressure [Supine] O2 Saturation 06/29/21 06/29/21 06/29/21 04:05 04:10 04:15 Temperature Heart Rate 71 87 77 Heart Rate [ Brachial] Heart Rate [ Monitoring electrodes] Heart Rate [ Supine] Respiratory 20 11 L 17 Rate Blood Pressure Blood Pressure [Left Brachial artery] Blood Pressure [Right Ankle] Blood Pressure [Right Brachial artery] Blood Pressure [Supine] O2 Saturation 06/29/21 06/29/21 06/29/21 04:20 04:25 04:30 Temperature Heart Rate 94 85 80 Heart Rate [ Brachial] Heart Rate [ 82 Monitoring electrodes] Heart Rate [ Supine] Respiratory 19 15 17 Rate Blood Pressure Blood Pressure 102/52 L [Left Brachial artery] Blood Pressure [Right Ankle] Blood Pressure [Right Brachial artery] Blood Pressure [Supine] O2 Saturation 96 06/29/21 06/29/21 06/29/21 04:35 04:40 04:45 Temperature Heart Rate 80 88 87 Heart Rate [ Brachial] Heart Rate [ Monitoring electrodes] Heart Rate [ Supine] Respiratory 6 L 15 18 Rate Blood Pressure Blood Pressure [Left Brachial artery] Blood Pressure [Right Ankle] Blood Pressure [Right Brachial artery] Blood Pressure [Supine] O2 Saturation 06/29/21 06/29/2121 04:50 04:55 05:00 Temperature Heart Rate 83 79 83 Heart Rate [ Brachial] Heart Rate [ Monitoring electrodes] Heart Rate [ Supine] Respiratory 0 L 21 20 Rate Blood Pressure Blood Pressure [Left Brachial artery] Blood Pressure [Right Ankle] Blood Pressure [Right Brachial artery] Blood Pressure [Supine] O2 Saturation 06/29/21 06/29/21 06/29/21 05:01 05:05 05:10 Temperature Heart Rate 81 83 81 Heart Rate [ Brachial] Heart Rate [ Monitoring electrodes] Heart Rate [ Supine] Respiratory 21 21 21 Rate Blood Pressure 120/53 L Blood Pressure [Left Brachial artery] Blood Pressure [Right Ankle] Blood Pressure [Right Brachial artery] Blood Pressure [Supine] O2 Saturation 06/29/21 06/29/21 06/29/21 05:11 05:15 05:20 Temperature Heart Rate 80 82 Heart Rate [ Brachial] Heart Rate [ 76 Monitoring electrodes] Heart Rate [ Supine] Respiratory 21 21 21 Rate Blood Pressure Blood Pressure 120/53 L [Left Brachial artery] Blood Pressure [Right Ankle] Blood Pressure [Right Brachial artery] Blood Pressure [Supine] O2 Saturation 97 06/29/21 06/29/21 06/29/21 05:25 05:30 05:35 Temperature Heart Rate 80 86 79 Heart Rate [ Brachial] Heart Rate [ Monitoring electrodes] Heart Rate [ Supine] Respiratory 21 24 19 Rate Blood Pressure Blood Pressure [Left Brachial artery] Blood Pressure [Right Ankle] Blood Pressure [Right Brachial artery] Blood Pressure [Supine] O2 Saturation 06/29/21 06/29/21 06/29/21 05:40 05:45 06:00 Temperature Heart Rate 81 78 Heart Rate [ Brachial] Heart Rate [ 75 Monitoring electrodes] Heart Rate [ Supine] Respiratory 21 20 21 Rate Blood Pressure Blood Pressure 139/47 H [Left Brachial artery] Blood Pressure [Right Ankle] Blood Pressure [Right Brachial artery] Blood Pressure [Supine] O2 Saturation 98 06/29/21 06/29/21 06/29/21 07:00 08:00 08:25 Temperature 37.5 C Heart Rate 92 Heart Rate [ Brachial] Heart Rate [ 85 86 Monitoring electrodes] Heart Rate [ Supine] Respiratory 22 23 24 Rate Blood Pressure Blood Pressure 112/55 L 82/44 L [Left Brachial artery] Blood Pressure [Right Ankle] Blood Pressure [Right Brachial artery] Blood Pressure [Supine] O2 Saturation 99 96 06/29/21 06/29/21 06/29/21 08:30 08:35 08:40 Temperature Heart Rate 85 95 102 H Heart Rate [ Brachial] Heart Rate [ Monitoring electrodes] Heart Rate [ Supine] Respiratory 23 26 H 14 Rate Blood Pressure Blood Pressure [Left Brachial artery] Blood Pressure [Right Ankle] Blood Pressure [Right Brachial artery] Blood Pressure [Supine] O2 Saturation 06/29/21 06/29/21 06/29/21 08:45 08:50 08:55 Temperature Heart Rate 84 89 91 Heart Rate [ Brachial] Heart Rate [ Monitoring electrodes] Heart Rate [ Supine] Respiratory 24 22 24 Rate Blood Pressure Blood Pressure [Left Brachial artery] Blood Pressure [Right Ankle] Blood Pressure [Right Brachial artery] Blood Pressure [Supine] O2 Saturation 06/29/21 06/29/21 06/29/21 08:59 09:00 09:01 Temperature Heart Rate 95 88 90 Heart Rate [ Brachial] Heart Rate [ 91 Monitoring electrodes] Heart Rate [ Supine] Respiratory 19 16 17 Rate Blood Pressure 108/63 Blood Pressure 108/63 [Left Brachial artery] Blood Pressure [Right Ankle] Blood Pressure [Right Brachial artery] Blood Pressure [Supine] O2 Saturation 95 06/29/21 06/29/21 06/29/21 09:05 09:10 09:15 Temperature Heart Rate 95 92 82 Heart Rate [ Brachial] Heart Rate [ Monitoring electrodes] Heart Rate [ Supine] Respiratory 16 24 14 Rate Blood Pressure Blood Pressure [Left Brachial artery] Blood Pressure [Right Ankle] Blood Pressure [Right Brachial artery] Blood Pressure [Supine] O2 Saturation 06/29/21 06/29/21 06/29/21 09:20 09:25 09:30 Temperature Heart Rate 102 H 82 83 Heart Rate [ Brachial] Heart Rate [ Monitoring electrodes] Heart Rate [ Supine] Respiratory 14 22 22 Rate Blood Pressure Blood Pressure [Left Brachial artery] Blood Pressure [Right Ankle] Blood Pressure [Right Brachial artery] Blood Pressure [Supine] O2 Saturation 06/29/21 06/29/21 06/29/21 09:35 09:40 09:45 Temperature Heart Rate 94 90 77 Heart Rate [ Brachial] Heart Rate [ Monitoring electrodes] Heart Rate [ Supine] Respiratory 22 23 23 Rate Blood Pressure Blood Pressure [Left Brachial artery] Blood Pressure [Right Ankle] Blood Pressure [Right Brachial artery] Blood Pressure [Supine] O2 Saturation 06/29/21 06/29/2121 09:50 09:55 10:00 Temperature Heart Rate 93 88 90 Heart Rate [ Brachial] Heart Rate [ 84 Monitoring electrodes] Heart Rate [ Supine] Respiratory 17 Rate Blood Pressure Blood Pressure 104/54 L [Left Brachial artery] Blood Pressure [Right Ankle] Blood Pressure [Right Brachial artery] Blood Pressure [Supine] O2 Saturation 96 06/29/21 06/29/21 06/29/21 10:01 10:05 10:10 Temperature Heart Rate 92 85 91 Heart Rate [ Brachial] Heart Rate [ Monitoring electrodes] Heart Rate [ Supine] Respiratory Rate Blood Pressure 104/54 L Blood Pressure [Left Brachial artery] Blood Pressure [Right Ankle] Blood Pressure [Right Brachial artery] Blood Pressure [Supine] O2 Saturation 06/29/21 06/29/21 06/29/21 10:15 10:20 10:25 Temperature Heart Rate 89 86 92 Heart Rate [ Brachial] Heart Rate [ Monitoring electrodes] Heart Rate [ Supine] Respiratory Rate Blood Pressure Blood Pressure [Left Brachial artery] Blood Pressure [Right Ankle] Blood Pressure [Right Brachial artery] Blood Pressure [Supine] O2 Saturation 06/29/21 06/29/21 06/29/21 10:30 10:35 10:40 Temperature Heart Rate 93 96 90 Heart Rate [ Brachial] Heart Rate [ Monitoring electrodes] Heart Rate [ Supine] Respiratory 18 21 Rate Blood Pressure Blood Pressure [Left Brachial artery] Blood Pressure [Right Ankle] Blood Pressure [Right Brachial artery] Blood Pressure [Supine] O2 Saturation 06/29/21 06/29/21 06/29/21 10:45 10:50 10:55 Temperature Heart Rate 92 90 89 Heart Rate [ Brachial] Heart Rate [ Monitoring electrodes] Heart Rate [ Supine] Respiratory 16 17 18 Rate Blood Pressure Blood Pressure [Left Brachial artery] Blood Pressure [Right Ankle] Blood Pressure [Right Brachial artery] Blood Pressure [Supine] O2 Saturation 06/29/21 06/29/21 06/29/21 10:57 10:58 11:00 Temperature Heart Rate 96 96 98 Heart Rate [ Brachial] Heart Rate [ 101 H Monitoring electrodes] Heart Rate [ 99 Supine] Respiratory 21 15 20 Rate Blood Pressure 95/64 Blood Pressure 98/78 [Left Brachial artery] Blood Pressure [Right Ankle] Blood Pressure [Right Brachial artery] Blood Pressure 95/64 [Supine] O2 Saturation 95 06/29/21 06/29/21 06/29/21 11:01 11:43 11:45 Temperature Heart Rate 89 96 93 Heart Rate [ Brachial] Heart Rate [ Monitoring electrodes] Heart Rate [ Supine] Respiratory 17 13 Rate Blood Pressure 98/78 Blood Pressure [Left Brachial artery] Blood Pressure [Right Ankle] Blood Pressure [Right Brachial artery] Blood Pressure [Supine] O2 Saturation 06/29/21 06/29/21 06/29/21 11:50 11:55 12:00 Temperature Heart Rate 86 84 89 Heart Rate [ Brachial] Heart Rate [ 87 Monitoring electrodes] Heart Rate [ Supine] Respiratory 20 15 15 Rate Blood Pressure Blood Pressure 113/58 L [Left Brachial artery] Blood Pressure [Right Ankle] Blood Pressure [Right Brachial artery] Blood Pressure [Supine] O2 Saturation 97 06/29/21 06/29/21 06/29/21 12:05 12:10 12:15 Temperature Heart Rate 87 81 80 Heart Rate [ Brachial] Heart Rate [ Monitoring electrodes] Heart Rate [ Supine] Respiratory 22 22 22 Rate Blood Pressure Blood Pressure [Left Brachial artery] Blood Pressure [Right Ankle] Blood Pressure [Right Brachial artery] Blood Pressure [Supine] O2 Saturation 06/29/21 06/29/21 06/29/21 12:16 12:20 12:25 Temperature Heart Rate 85 88 76 Heart Rate [ Brachial] Heart Rate [ Monitoring electrodes] Heart Rate [ Supine] Respiratory 18 23 22 Rate Blood Pressure 113/58 L Blood Pressure [Left Brachial artery] Blood Pressure [Right Ankle] Blood Pressure [Right Brachial artery] Blood Pressure [Supine] O2 Saturation 06/29/21 06/29/21 06/29/21 12:30 13:00 14:00 Temperature Heart Rate 74 Heart Rate [ Brachial] Heart Rate [ 80 98 Monitoring electrodes] Heart Rate [ Supine] Respiratory 22 22 15 Rate Blood Pressure Blood Pressure 109/48 L 124/64 [Left Brachial artery] Blood Pressure [Right Ankle] Blood Pressure [Right Brachial artery] Blood Pressure [Supine] O2 Saturation 95 97 06/29/21 06/29/21 06/29/21 15:00 16:00 17:00 Temperature 36.5 C Heart Rate Heart Rate [ Brachial] Heart Rate [ 87 97 100 Monitoring electrodes] Heart Rate [ Supine] Respiratory 17 22 26 H Rate Blood Pressure Blood Pressure 140/49 H 116/74 112/54 L [Left Brachial artery] Blood Pressure [Right Ankle] Blood Pressure [Right Brachial artery] Blood Pressure [Supine] O2 Saturation 97 95 94 06/29/21 06/29/21 06/29/21 18:00 19:00 20:00 Temperature 36.8 C Heart Rate Heart Rate [ Brachial] Heart Rate [ 102 H 95 91 Monitoring electrodes] Heart Rate [ Supine] Respiratory 25 H 22 21 Rate Blood Pressure Blood Pressure 106/61 136/69 H 138/61 H [Left Brachial artery] Blood Pressure [Right Ankle] Blood Pressure [Right Brachial artery] Blood Pressure [Supine] O2 Saturation 94 95 93 06/29/21 06/29/21 06/29/21 21:00 22:00 23:00 Temperature Heart Rate Heart Rate [ Brachial] Heart Rate [ 87 83 71 Monitoring electrodes] Heart Rate [ Supine] Respiratory 12 19 21 Rate Blood Pressure Blood Pressure 152/69 H 138/71 H 130/58 L [Left Brachial artery] Blood Pressure [Right Ankle] Blood Pressure [Right Brachial artery] Blood Pressure [Supine] O2 Saturation 92 93 94 06/29/21 06/30/21 06/30/21 23:43 00:00 01:00 Temperature 37.1 C Heart Rate Heart Rate [ Brachial] Heart Rate [ 92 90 Monitoring electrodes] Heart Rate [ Supine] Respiratory 17 17 Rate Blood Pressure Blood Pressure 100/81 H 147/59 H [Left Brachial artery] Blood Pressure [Right Ankle] Blood Pressure [Right Brachial artery] Blood Pressure [Supine] O2 Saturation 94 95 06/30/21 06/30/21 06/30/21 02:00 03:00 04:00 Temperature 36.7 C Heart Rate Heart Rate [ Brachial] Heart Rate [ 78 91 98 Monitoring electrodes] Heart Rate [ Supine] Respiratory 7 L 26 H 24 Rate Blood Pressure Blood Pressure 128/51 L 132/53 H 133/51 H [Left Brachial artery] Blood Pressure [Right Ankle] Blood Pressure [Right Brachial artery] Blood Pressure [Supine] O2 Saturation 94 94 95 06/30/21 06/30/21 06/30/21 05:00 06:00 06:59 Temperature Heart Rate Heart Rate [ Brachial] Heart Rate [ 79 87 93 Monitoring electrodes] Heart Rate [ Supine] Respiratory 25 H 23 26 H Rate Blood Pressure Blood Pressure 105/49 L 116/49 L 102/51 L [Left Brachial artery] Blood Pressure [Right Ankle] Blood Pressure [Right Brachial artery] Blood Pressure [Supine] O2 Saturation 94 95 94 06/30/21 06/30/21 06/30/21 08:00 09:00 09:56 Temperature 36.3 C L Heart Rate Heart Rate [ Brachial] Heart Rate [ 96 123 H Monitoring electrodes] Heart Rate [ Supine] Respiratory 24 26 H Rate Blood Pressure 137/57 H Blood Pressure 110/78 95/81 H [Left Brachial artery] Blood Pressure [Right Ankle] Blood Pressure [Right Brachial artery] Blood Pressure [Supine] O2 Saturation 93 92 06/30/21 06/30/21 06/30/21 10:00 11:00 12:00 Temperature 36.4 C L Heart Rate Heart Rate [ Brachial] Heart Rate [ 115 H 98 100 Monitoring electrodes] Heart Rate [ Supine] Respiratory 25 H 26 H 27 H Rate Blood Pressure Blood Pressure 115/72 126/63 116/60 [Left Brachial artery] Blood Pressure [Right Ankle] Blood Pressure [Right Brachial artery] Blood Pressure [Supine] O2 Saturation 98 99 98 06/30/21 06/30/21 06/30/21 13:00 14:00 15:00 Temperature Heart Rate Heart Rate [ Brachial] Heart Rate [ 73 71 71 Monitoring electrodes] Heart Rate [ Supine] Respiratory 23 20 21 Rate Blood Pressure Blood Pressure 95/48 L 93/46 L 93/44 L [Left Brachial artery] Blood Pressure [Right Ankle] Blood Pressure [Right Brachial artery] Blood Pressure [Supine] O2 Saturation 98 98 99 06/30/21 06/30/21 06/30/21 15:40 16:00 17:00 Temperature 37.6 C Heart Rate Heart Rate [ Brachial] Heart Rate [ 79 80 Monitoring electrodes] Heart Rate [ Supine] Respiratory 20 21 Rate Blood Pressure Blood Pressure 100/46 L 100/50 L [Left Brachial artery] Blood Pressure [Right Ankle] Blood Pressure [Right Brachial artery] Blood Pressure [Supine] O2 Saturation 100 99 06/30/21 06/30/21 06/30/21 18:00 19:00 20:00 Temperature 37.1 C Heart Rate Heart Rate [ Brachial] Heart Rate [ 78 69 75 Monitoring electrodes] Heart Rate [ Supine] Respiratory 26 H 22 20 Rate Blood Pressure Blood Pressure 109/69 116/52 L 115/77 [Left Brachial artery] Blood Pressure [Right Ankle] Blood Pressure [Right Brachial artery] Blood Pressure [Supine] O2 Saturation 100 100 06/30/21 06/30/21 06/30/21 20:39 21:00 22:00 Temperature Heart Rate Heart Rate [ Brachial] Heart Rate [ 68 65 Monitoring electrodes] Heart Rate [ Supine] Respiratory 23 22 Rate Blood Pressure 109/49 L Blood Pressure 94/41 L 99/44 L [Left Brachial artery] Blood Pressure [Right Ankle] Blood Pressure [Right Brachial artery] Blood Pressure [Supine] O2 Saturation 98 99 06/30/21 06/30/21 07/01/21 23:00 23:36 00:00 Temperature 37.1 C Heart Rate Heart Rate [ Brachial] Heart Rate [ 64 63 Monitoring electrodes] Heart Rate [ Supine] Respiratory 21 22 Rate Blood Pressure Blood Pressure 94/45 L 104/44 L [Left Brachial artery] Blood Pressure [Right Ankle] Blood Pressure [Right Brachial artery] Blood Pressure [Supine] O2 Saturation 99 99 07/01/21 07/01/21 07/01/21 01:00 02:00 03:00 Temperature 37.1 C Heart Rate Heart Rate [ Brachial] Heart Rate [ 62 60 67 Monitoring electrodes] Heart Rate [ Supine] Respiratory 20 20 23 Rate Blood Pressure Blood Pressure 91/48 L 97/44 L 98/53 L [Left Brachial artery] Blood Pressure [Right Ankle] Blood Pressure [Right Brachial artery] Blood Pressure [Supine] O2 Saturation 99 99 98 07/01/21 07/01/21 07/01/21 04:00 05:00 06:00 Temperature Heart Rate Heart Rate [ Brachial] Heart Rate [ 66 64 61 Monitoring electrodes] Heart Rate [ Supine] Respiratory 20 21 21 Rate Blood Pressure Blood Pressure 114/53 L 111/47 L 113/53 L [Left Brachial artery] Blood Pressure [Right Ankle] Blood Pressure [Right Brachial artery] Blood Pressure [Supine] O2 Saturation 99 96 98 07/01/21 07/01/21 07/01/21 07:00 08:00 09:00 Temperature 36.1 C L Heart Rate Heart Rate [ Brachial] Heart Rate [ 75 75 75 Monitoring electrodes] Heart Rate [ Supine] Respiratory 18 20 21 Rate Blood Pressure Blood Pressure 111/51 L 117/47 L 93/47 L [Left Brachial artery] Blood Pressure [Right Ankle] Blood Pressure [Right Brachial artery] Blood Pressure [Supine] O2 Saturation 97 91 L 95 07/01/21 07/01/21 07/01/21 10:00 11:00 12:00 Temperature Heart Rate Heart Rate [ Brachial] Heart Rate [ 62 63 72 Monitoring electrodes] Heart Rate [ Supine] Respiratory 23 20 22 Rate Blood Pressure Blood Pressure 97/40 L 101/48 L 95/49 L [Left Brachial artery] Blood Pressure [Right Ankle] Blood Pressure [Right Brachial artery] Blood Pressure [Supine] O2 Saturation 99 98 94 07/01/21 07/01/21 07/01/21 13:00 14:00 14:52 Temperature 37.1 C Heart Rate Heart Rate [ Brachial] Heart Rate [ 73 73 60 Monitoring electrodes] Heart Rate [ Supine] Respiratory 21 22 18 Rate Blood Pressure Blood Pressure 94/71 141/64 H 118/56 L [Left Brachial artery] Blood Pressure [Right Ankle] Blood Pressure [Right Brachial artery] Blood Pressure [Supine] O2 Saturation 100 97 99 07/01/21 07/01/21 07/01/21 16:00 17:00 18:00 Temperature 36.7 C Heart Rate Heart Rate [ Brachial] Heart Rate [ 57 L 64 77 Monitoring electrodes] Heart Rate [ Supine] Respiratory 20 20 18 Rate Blood Pressure Blood Pressure 127/55 L 138/63 H 157/68 H [Left Brachial artery] Blood Pressure [Right Ankle] Blood Pressure [Right Brachial artery] Blood Pressure [Supine] O2 Saturation 100 95 95 07/01/21 07/01/21 07/01/21 19:00 20:00 21:00 Temperature Heart Rate Heart Rate [ Brachial] Heart Rate [ 78 59 L 63 Monitoring electrodes] Heart Rate [ Supine] Respiratory 20 22 18 Rate Blood Pressure Blood Pressure 149/89 H 111/41 L 111/42 L [Left Brachial artery] Blood Pressure [Right Ankle] Blood Pressure [Right Brachial artery] Blood Pressure [Supine] O2 Saturation 91 L 97 100 07/01/21 07/02/21 07/02/21 22:00 01:01 06:00 Temperature 36.8 C 36.8 C 37 C Heart Rate Heart Rate [ Brachial] Heart Rate [ 60 73 79 Monitoring electrodes] Heart Rate [ Supine] Respiratory 18 16 16 Rate Blood Pressure Blood Pressure 140/55 H 141/48 H 131/67 H [Left Brachial artery] Blood Pressure [Right Ankle] Blood Pressure [Right Brachial artery] Blood Pressure [Supine] O2 Saturation 100 98 100 07/02/21 07/02/21 07/03/21 13:43 18:30 01:32 Temperature 36.8 C 36.7 C Heart Rate Heart Rate [ 91 84 Brachial] Heart Rate [ 95 Monitoring electrodes] Heart Rate [ Supine] Respiratory 18 20 20 Rate Blood Pressure Blood Pressure [Left Brachial artery] Blood Pressure 137/93 H [Right Ankle] Blood Pressure 97/74 148/78 H [Right Brachial artery] Blood Pressure [Supine] O2 Saturation 93 97 96 07/03/21 07/03/21 07/03/21 08:59 13:00 16:50 Temperature 36.6 C 36.8 C 36.5 C Heart Rate Heart Rate [ 82 95 88 Brachial] Heart Rate [ Monitoring electrodes] Heart Rate [ Supine] Respiratory 20 16 20 Rate Blood Pressure Blood Pressure [Left Brachial artery] Blood Pressure [Right Ankle] Blood Pressure 133/52 H 97/53 L 99/47 L [Right Brachial artery] Blood Pressure [Supine] O2 Saturation 97 96 97 07/03/21 07/04/21 07/04/21 21:20 01:00 06:03 Temperature 36.7 C 37.7 C 37.1 C Heart Rate Heart Rate [ 86 91 91 Brachial] Heart Rate [ Monitoring electrodes] Heart Rate [ Supine] Respiratory 16 18 18 Rate Blood Pressure Blood Pressure 104/40 L [Left Brachial artery] Blood Pressure [Right Ankle] Blood Pressure 116/44 L 115/60 [Right Brachial artery] Blood Pressure [Supine] O2 Saturation 99 96 98 07/04/21 07/04/21 07/04/21 09:00 13:00 16:34 Temperature 37.4 C 37.3 C 37.3 C Heart Rate Heart Rate [ 88 85 97 Brachial] Heart Rate [ Monitoring electrodes] Heart Rate [ Supine] Respiratory 16 16 18 Rate Blood Pressure Blood Pressure [Left Brachial artery] Blood Pressure 125/53 L [Right Ankle] Blood Pressure 117/57 L 94/40 L [Right Brachial artery] Blood Pressure [Supine] O2 Saturation 97 95 96 07/05/21 07/05/21 07/05/21 00:10 16:20 23:50 Temperature 37.2 C 37.4 C 37.4 C Heart Rate Heart Rate [ 95 93 90 Brachial] Heart Rate [ Monitoring electrodes] Heart Rate [ Supine] Respiratory 16 18 18 Rate Blood Pressure Blood Pressure 105/47 L [Left Brachial artery] Blood Pressure [Right Ankle] Blood Pressure 141/56 H 134/60 H [Right Brachial artery] Blood Pressure [Supine] O2 Saturation 98 98 98 07/06/21 08:18 Temperature 37 C Heart Rate Heart Rate [ 89 Brachial] Heart Rate [ Monitoring electrodes] Heart Rate [ Supine] Respiratory 20 Rate Blood Pressure Blood Pressure [Left Brachial artery] Blood Pressure [Right Ankle] Blood Pressure 98/51 L [Right Brachial artery] Blood Pressure [Supine] O2 Saturation 96 Intake & Output: Intake and Output Totals x24h 07/04/21 07/05/21 07/06/21 23:59 23:59 23:59 Intake Total 620 760 620 Output Total 2300 1775 Balance -1680 -1015 620 - Lab Results Lab Results: 07/06/21 04:23 07/06/21 04:23 Other Lab Results: Lab Results x24hrs 07/06/21 07/06/21 Range/Units 04:23 04:23 WBC 14.4 H (4.8-10.8) x10^3/uL RBC 3.24 L (4.70-6.10) 10^6/uL Hgb 10.8 L (14.0-18.0) g/dL Hct 32.4 L (42.0-52.0) % MCV 100.0 H (80.0-94.0) fL MCH 33.3 H (27.0-31.0) pg MCHC 33.3 (32.0-36.0) g/dL RDW 14.2 (12.0-15.0) % Plt Count 291 (130-450) 10^3/uL MPV 9.4 (7.4-11.4) fL Neut # (Auto) 10.0 H (1.5-6.6) 10^3/uL Lymph # (Auto) 3.2 (1.5-3.5) 10^3/uL [place] # (Auto) 0.9 (0.0-1.0) 10^3/uL Eos # (Auto) 0.2 (0.0-0.7) 10^3/uL Baso # (Auto) 0.0 (0.0-0.1) 10^3/uL Absolute Nucleated RBC 0.00 x10^3/uL Nucleated RBC % 0.0 /100WBC Sodium 138 (135-145) mmol/L Potassium 3.9 (3.5-5.0) mmol/L Chloride 102 (101-111) mmol/L Carbon Dioxide 27 (21-32) mmol/L Anion Gap 9.0 (6-13) BUN 23 H (6-20) mg/dL Creatinine 1.1 (0.6-1.2) mg/dL Estimated GFR (MDRD) 64 L (>89) Glucose 113 H (70-100) mg/dL Calcium 8.5 (8.5-10.3) mg/dL Total Bilirubin 0.8 (0.2-1.0) mg/dL AST 76 H (10-42) IU/L ALT 97 H (10-60) IU/L Alkaline Phosphatase 34 L (42-121) IU/L Total Protein 6.2 L (6.7-8.2) g/dL Albumin 2.8 L (3.2-5.5) g/dL Globulin 3.4 (2.1-4.2) g/dL Albumin/Globulin Ratio 0.8 L (1.0-2.2) - Current Medications Current Medications: Current Medications Generic Name Dose Route Start Last Admin Trade Name Freq PRN Reason Stop Dose Admin Aspirin 81 mg 06/30/21 10:00 07/06/21 08:36 Aspirin Chew 81 Mg Tablet PO 81 mg DAILY JUAQUIN Administration Enoxaparin Sodium 40 mg 06/30/21 09:00 07/06/21 08:37 Enoxaparin 40 Mg/0.4 Ml Syringe SUBQ 40 mg DAILY JUAQUIN Administration Hydromorphone HCl 0.5 mg 06/28/21 22:00 06/30/21 20:38 Hydromorphone 0.5 Mg/0.5 Ml Syringe IVP 0.2 mg Q2H PRN Administration PAIN Ceftriaxone Sodium 1 gm/ 100 mls @ 200 mls/hr 07/05/21 13:49 07/06/21 09:35 Sodium Chloride IV Infused DAILY JUAQUIN Infusion Oxycodone HCl 5 mg 07/01/21 10:19 07/02/21 08:17 Oxycodone 5 Mg Tablet PO 5 mg Q4HR PRN Administration PAIN Pantoprazole Sodium 40 mg 07/01/21 07:00 07/06/21 06:47 Pantoprazole 40 Mg Tablet PO 40 mg QDAC JUAQUIN Administration Saccharomyces Boulardii 250 mg 07/05/21 17:00 07/06/21 08:36 Saccharomyces Boulardii 250 Mg Capsule PO 250 mg BIDWM JUAQUIN Administration Tamsulosin HCl 0.4 mg 07/05/21 21:00 07/06/21 08:36 Tamsulosin 0.4 Mg Capsule PO 0.4 mg BID JUAQUIN Administration - Physical Exam Wound/Incisions: positive: Healing well General Appearance: positive: No acute distress, Alert Eyes Bilateral: positive: Normal inspection, PERRL ENT: positive: ENT inspection nml Respiratory: positive: Chest non-tender, No respiratory distress Cardiovascular: positive: Regular rate & rhythm Abdomen: positive: Non-tender, Nml bowel sounds, Other (Ostomy is viable and working) Neurologic/Psychiatric: positive: Oriented x3 ABX Reporting Has patient been on IV antibiotics over the past 48 hours?: Yes Impression/Plan - Problem List Problem List: 1. Bowel obstruction secondary to volvulus is resolved - ostomy is working and he appears to have left the bag in place. Midline wound looks good 2. UTI - Preliminary culture shows gram neg rods. WBC decreased on antibiotics. Could likely discharge when sensitivities are back.
[2021-07-07 05:12] LABS: BASOPHILS % (AUTO) 0.1 %; EOSINOPHILS # (AUTO) 0.3 10^3/uL (0.0-0.7); EOSINOPHILS % (AUTO) 3.1 %; HCT - HEMATOCRIT 32.2 % (42.0-52.0); HGB - HEMOGLOBIN 10.6 g/dL (14.0-18.0); LYMPHOCYTES # (AUTO) 2.5 10^3/uL (1.5-3.5); LYMPHOCYTES % (AUTO) 29.1 %; MEAN CORPUSCULAR HEMOGLOBIN 32.7 pg (27.0-31.0); MEAN CORPUSCULAR HGB CONC 32.9 g/dL (32.0-36.0); MEAN CORPUSCULAR VOLUME 99.4 fL (80.0-94.0); MEAN PLATELET VOLUME 9.6 fL (7.4-11.4); MONOCYTES # (AUTO) 0.6 10^3/uL (0.0-1.0); MONOCYTES % (AUTO) 7.3 %; NEUTROPHILS % (AUTO) 59.1 %; PLT - PLATELET COUNT 305 10^3/uL (130-450); RED BLOOD COUNT 3.24 10^6/uL (4.70-6.10); RED CELL DISTRIBUTION WIDTH 14.1 % (12.0-15.0); WHITE BLOOD COUNT 8.5 x10^3/uL (4.8-10.8)
[2021-07-07 05:23] LABS: ALBUMIN 2.8 g/dL (3.2-5.5); ALBUMIN/GLOBULIN RATIO 0.8 (1.0-2.2); BILIRUBIN,TOTAL 0.6 mg/dL (0.2-1.0); CALCIUM 8.5 mg/dL (8.5-10.3); CREATININE 1.1 mg/dL (0.6-1.2); POTASSIUM 3.6 mmol/L (3.5-5.0); TOTAL PROTEIN 6.2 g/dL (6.7-8.2)
[2021-07-07] MEDS: PANTOPRAZOLE 40 MG TABLET PO SCH (06:34)
[2021-07-07] MEDS: ASPIRIN CHEW 81 MG TABLET PO SCH (09:54)
[2021-07-07] MEDS: TAMSULOSIN 0.4 MG CAPSULE PO SCH ×2 (09:54→20:06)
[2021-07-07] MEDS: SACCHAROMYCES BOULARDII 250 MG CAPSULE PO SCH ×2 (09:54→17:20)
[2021-07-07] MEDS: ENOXAPARIN 40 MG/0.4 ML SYRINGE SUBQ SCH (09:54)
[2021-07-07] MEDS: cefTRIAXone 1 GM in SODIUM CHLORIDE 0.9% MINIBAG 100 ML IV SCH (09:55)
--- NOTE | 2021-07-07 14:27 | PROVIDER PROGRESS NOTE ---
Assessment/Plan - Problem List (1) Intestinal obstruction Assessment/Plan: 07/07 stable, pt ate and has bowel movement 07/06 pt ate 100% of his diet with bowel movements, stable. 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 The ostomy nurses work with the patient, and his daughter for the ostomy care. (2) Urinary retention 07/07 still has problem. pt can not urinate again. nurse put Rai, and has 1100cc urine out, continue rai care, pt may followup with urologist as out-pt. 07/06 it seems resolved. pt urinate by himself. continue flomax. surgeon will try once for off Rai, continue Flomax bid. continue nurse care, monitor urinary retention. (3)UTI 07/07 UA culture and sensitivity study are still pending. called lab, will have result on tomorrow morning. pt seem responsive to the antibiotics treatment, switch to PO now, continue probiotics. 07/06 UA show gram negative bacterial, WBC is reduced. pt has no fever. blood culture is pending, UA sensitivity study is pending now. continue Antibiotics and probiotics pt has Elevated WBC, slight elevated tem but not fever, and urinalysis reveal U TI. pt is Hemodynamic stable. Patient had history of advanced dementia. start with IV Rocephin, Follow-up with UA culture and sensitivity study. (4) dementia without behavioral disturbance as pt's hx, continue to have poorly clinic presentation. Family is taking care of patient well, ask d/c to home with family care. Consult with social work for disposition planning. (5) Atrial fibrillation stable, HR is 95 now. He initially had atrial fibrillation only in the operating room and by the time he got to recovery the A. fib had resolved. It returned again on the morning of the . Troponin was unremarkable. Chest x-ray was unremarkable. Started on metoprolol. Says he has a history of falls, only on aspirin and not a DOAC. Echocardiogram June 29 had a ejection fraction of 60 to 65%. Right ventricle normal size and function. Both atria size were normal. No valvular heart disease. He converted to sinus rhythm yesterday morning. We are holding metoprolol because of low blood pressure. As of today, no atrial fibrillation. (6) Diabetes mellitus Glucose was elevated on admission. A1c is 5.9%. We will continue to monitor and sliding scale insulin will be provided depending on how high his glucoses. So far he has not needed any insulin. (7) Hypertension stable, Continue vital signs monitor - Current Meds Current Meds: Current Medications Generic Name Dose Route Start Last Admin Trade Name Freq PRN Reason Stop Dose Admin Aspirin 81 mg 06/30/21 10:00 07/07/21 09:54 Aspirin Chew 81 Mg Tablet PO 81 mg DAILY JUAQUIN Administration Enoxaparin Sodium 40 mg 06/30/21 09:00 07/07/21 09:54 Enoxaparin 40 Mg/0.4 Ml Syringe SUBQ 40 mg DAILY JUAQUIN Administration Hydromorphone HCl 0.5 mg 06/28/21 22:00 06/30/21 20:38 Hydromorphone 0.5 Mg/0.5 Ml Syringe IVP 0.2 mg Q2H PRN Administration PAIN Oxycodone HCl 5 mg 07/01/21 10:19 07/02/21 08:17 Oxycodone 5 Mg Tablet PO 5 mg Q4HR PRN Administration PAIN Pantoprazole Sodium 40 mg 07/01/21 07:00 07/07/21 06:34 Pantoprazole 40 Mg Tablet PO 40 mg QDAC JUAQUIN Administration Saccharomyces Boulardii 250 mg 07/05/21 17:00 07/07/21 09:54 Saccharomyces Boulardii 250 Mg Capsule PO 250 mg BIDWM JUAQUIN Administration Tamsulosin HCl 0.4 mg 07/05/21 21:00 07/07/21 09:54 Tamsulosin 0.4 Mg Capsule PO 0.4 mg BID JUAQUIN Administration - Lab Result Fish Bone Diagrams: 07/07/21 04:25 07/07/21 04:25 - Additional Planning My Orders: My Active Orders 07/07/21 13:36 Rai Insertion [RC] QSHIFT 07/07/21 21:00 cefUROXime axetiL [Ceftin] 500 mg PO BID 07/08/21 05:00 CBC - COMP BLD CT W/AUTO DIFF [HEME] DAILYLAB CMP [COMPREHENSIVE METABOLIC PANEL] [CHEM] DAILYLAB 07/09/21 05:00 CBC - COMP BLD CT W/AUTO DIFF [HEME] DAILYLAB CMP [COMPREHENSIVE METABOLIC PANEL] [CHEM] DAILYLAB Subjective - Subjective Patient Reports: Resting Comfortably Objective Vital Signs: Vital Signs - 24 hr 07/06/21 07/06/21 07/07/21 18:02 23:29 07:47 Temperature 37.0 C 37.0 C 37.0 C Heart Rate [ 83 85 86 Brachial] Respiratory 18 18 18 Rate Blood Pressure 95/41 L 116/54 L [Left Brachial artery] Blood Pressure 121/54 L [Right Brachial artery] O2 Saturation 100 100 99 Oxygen O2 Source Room air I&O (Last 24 Hrs): Intake and Output Totals x24h 07/05/21 07/06/21 07/07/21 23:59 23:59 23:59 Intake Total 760 790 460 Output Total 7899 342 9951 Balance -1015 202 -740 General: Alert, No acute distress HEENT: Atraumatic Neck: Supple Lymphatic: no adenopathy Neuro: Alert, Non Focal Cardiovascular: Regular rate, Normal S1, Normal S2 Respiratory: Chest non-tender, No respiratory distress Abdomen: Normal bowel sounds, Soft Extremities: Normal pulses - Results Results: Laboratory Results WBC 8.5 x10^3/uL (4.8-10.8) 07/07/21 04:25 RBC 3.24 10^6/uL (4.70-6.10) L 07/07/21 04:25 Hgb 10.6 g/dL (14.0-18.0) L 07/07/21 04:25 Hct 32.2 % (42.0-52.0) L 07/07/21 04:25 MCV 99.4 fL (80.0-94.0) H 07/07/21 04:25 MCH 32.7 pg (27.0-31.0) H 07/07/21 04:25 MCHC 32.9 g/dL (32.0-36.0) 07/07/21 04:25 RDW 14.1 % (12.0-15.0) 07/07/21 04:25 Plt Count 305 10^3/uL (130-450) 07/07/21 04:25 MPV 9.6 fL (7.4-11.4) 07/07/21 04:25 Neut # (Auto) 5.0 10^3/uL (1.5-6.6) 07/07/21 04:25 Lymph # (Auto) 2.5 10^3/uL (1.5-3.5) 07/07/21 04:25 [place] # (Auto) 0.6 10^3/uL (0.0-1.0) 07/07/21 04:25 Eos # (Auto) 0.3 10^3/uL (0.0-0.7) 07/07/21 04:25 Baso # (Auto) 0.0 10^3/uL (0.0-0.1) 07/07/21 04:25 Absolute Nucleated RBC 0.00 x10^3/uL 07/07/21 04:25 Total Counted 100 06/30/21 04:25 Band Neuts % (Manual) 4 % (0-10) 06/30/21 04:25 Abnorm Lymph % (Manual) 0 % 06/30/21 04:25 Nucleated RBC % 0.0 /100WBC 07/07/21 04:25 Neutrophils # (Manual) 8.3 10^3/uL (1.5-6.6) H 06/30/21 04:25 Lymphocytes # (Manual) 1.3 10^3/uL (1.5-3.5) L 06/30/21 04:25 Monocytes # (Manual) 0.2 10^3/uL (0.0-1.0) 06/30/21 04:25 Eosinophils # (Manual) 0.3 10^3/uL (0-0.7) 06/30/21 04:25 Basophils # (Manual) 0.0 10^3/uL (0-0.1) 06/30/21 04:25 Differential Comment MANUAL DIFFERENTIAL 06/30/21 04:25 Platelet Estimate NORMAL (130-450,000) (NORMAL) 06/30/21 04:25 RBC Morph Micro Appear NORMAL APPEARANCE (NORMAL) 06/30/21 04:25 Sodium 139 mmol/L (135-145) 07/07/21 04:25 Potassium 3.6 mmol/L (3.5-5.0) 07/07/21 04:25 Chloride 102 mmol/L (101-111) 07/07/21 04:25 Carbon Dioxide 27 mmol/L (21-32) 07/07/21 04:25 Anion Gap 10.0 (6-13) 07/07/21 04:25 BUN 25 mg/dL (6-20) H 07/07/21 04:25 Creatinine 1.1 mg/dL (0.6-1.2) 07/07/21 04:25 Estimated GFR (MDRD) 64 (>89) L 07/07/21 04:25 Glucose 96 mg/dL (70-100) 07/07/21 04:25 Estimat Average Glucose 123 mg/dL (70-100) H 06/29/21 04:32 Hemoglobin A1c % 5.9 % (4.27-6.07) 06/29/21 04:32 Calcium 8.5 mg/dL (8.5-10.3) 07/07/21 04:25 Total Bilirubin 0.6 mg/dL (0.2-1.0) 07/07/21 04:25 AST 73 IU/L (10-42) H 07/07/21 04:25 ALT 91 IU/L (10-60) H 07/07/21 04:25 Alkaline Phosphatase 32 IU/L (42-121) L 07/07/21 04:25 Troponin I High Sens 19.2 ng/L (2.3-19.7) 06/30/21 11:38 Total Protein 6.2 g/dL (6.7-8.2) L 07/07/21 04:25 Albumin 2.8 g/dL (3.2-5.5) L 07/07/21 04:25 Globulin 3.4 g/dL (2.1-4.2) 07/07/21 04:25 Albumin/Globulin Ratio 0.8 (1.0-2.2) L 07/07/21 04:25 Lipase 40 U/L (22-51) 06/28/21 15:36 Vitamin B12 785 pg/mL (180-914) 06/30/21 09:19 Folate 35.00 ng/mL (5.90 - >24.8) 06/30/21 09:19 Urine Color YELLOW 07/05/21 13:09 Urine Clarity HAZY (CLEAR) 07/05/21 13:09 Urine pH 7.0 PH (5.0-7.5) 07/05/21 13:09 Ur Specific [place] 1.010 (1.002-1.030) 07/05/21 13:09 Urine Protein NEGATIVE mg/dL (NEGATIVE) 07/05/21 13:09 Urine Glucose (UA) NEGATIVE mg/dL (NEGATIVE) 07/05/21 13:09 Urine Ketones NEGATIVE mg/dL (NEGATIVE) 07/05/21 13:09 Urine Occult Blood SMALL (NEGATIVE) H 07/05/21 13:09 Urine Nitrite NEGATIVE (NEGATIVE) 07/05/21 13:09 Urine Bilirubin NEGATIVE (NEGATIVE) 07/05/21 13:09 Urine Urobilinogen 0.2 (NORMAL) E.U./dL (NORMAL) 07/05/21 13:09 Ur Leukocyte Esterase LARGE (NEGATIVE) H 07/05/21 13:09 Urine RBC 0-5 /HPF (0-5) 07/05/21 13:09 Urine WBC >25 /HPF (0-3) H 07/05/21 13:09 Ur Squamous Epith Cells NONE SEEN (<= Few) 07/05/21 13:09 Urine Bacteria Many /HPF (None Seen) H 07/05/21 13:09 Ur Microscopic Review NOT INDICATED 06/28/21 15:47 Urine Culture Comments INDICATED 07/05/21 13:09 Nasal Adenovirus (PCR) NOT DETECTED 06/29/21 23:55 Nasal B. parapertussis DNA (PCR) NOT DETECTED 06/29/21 23:55 Nasal Coronavir 229E PCR NOT DETECTED 06/29/21 23:55 Nasal Coronavir HKU1 PCR NOT DETECTED 06/29/21 23:55 Nasal Coronavir NL63 PCR NOT DETECTED 06/29/21 23:55 Nasal Coronavir OC43 PCR NOT DETECTED 06/29/21 23:55 Nasal Enterovir/Rhinovir PCR NOT DETECTED 06/29/21 23:55 Nasal Influenza B PCR NOT DETECTED 06/29/21 23:55 Nasal Influenza A PCR NOT DETECTED 06/29/21 23:55 Nasal Parainfluen 1 PCR NOT DETECTED 06/29/21 23:55 Nasal Parainfluen 2 PCR NOT DETECTED 06/29/21 23:55 Nasal Parainfluen 3 PCR NOT DETECTED 06/29/21 23:55 Nasal Parainfluen 4 PCR NOT DETECTED 06/29/21 23:55 Nasal RSV (PCR) NOT DETECTED 06/29/21 23:55 Nasal Screen MRSA (PCR) NEGATIVE (NEGATIVE) 06/28/21 22:35 Nasal B.pertussis DNA PCR NOT DETECTED 06/29/21 23:55 Nasal C.pneumoniae (PCR) NOT DETECTED 06/29/21 23:55 Chris Human Metapneumo PCR NOT DETECTED 06/29/21 23:55 Nasal M.pneumoniae (PCR) NOT DETECTED 06/29/21 23:55 Nasal SARS-CoV-2 (PCR) NOT DETECTED 06/29/21 23:55 ABX Reporting Has patient been on IV antibiotics over the past 48 hours?: Yes Current Medications - Current Medications Current Medications: Active Medications Aspirin (Aspirin Chew 81 Mg Tablet) 81 mg PO DAILY [facility] Last Admin: 07/07/21 09:54 Dose: 81 mg Documented by: Benzocaine/Butamben/Tetracaine HCl (Benzocaine/Tetracaine/Butamben 20 Gm) 1 sprays MM DAILY PRN PRN Reason: Throat Pain Cefuroxime Axetil (Cefuroxime Axetil 250 Mg Tablet) 500 mg PO BID [facility] Enoxaparin Sodium (Enoxaparin 40 Mg/0.4 Ml Syringe) 40 mg SUBQ DAILY [facility] Last Admin: 07/07/21 09:54 Dose: 40 mg Documented by: Hydromorphone HCl (Hydromorphone 0.5 Mg/0.5 Ml Syringe) 0.5 mg IVP Q2H PRN PRN Reason: PAIN Last Admin: 06/30/21 20:38 Dose: 0.2 mg Documented by: Mineral Oil (Min Oil/Dimethicon/Coconut Oil 92 Gm Tube) 1 applic TOP PRN PRN PRN Reason: Skin Care Ondansetron HCl (Ondansetron 4 Mg/2 Ml Vial) 4 mg IVP Q6H PRN PRN Reason: Nausea / Vomiting Oxycodone HCl (Oxycodone 5 Mg Tablet) 5 mg PO Q4HR PRN PRN Reason: PAIN Last Admin: 07/02/21 08:17 Dose: 5 mg Documented by: Pantoprazole Sodium (Pantoprazole 40 Mg Tablet) 40 mg PO QDAC [facility] Last Admin: 07/07/21 06:34 Dose: 40 mg Documented by: Saccharomyces Boulardii (Saccharomyces Boulardii 250 Mg Capsule) 250 mg PO BIDWM [facility] Last Admin: 07/07/21 09:54 Dose: 250 mg Documented by: Tamsulosin HCl (Tamsulosin 0.4 Mg Capsule) 0.4 mg PO BID JUAQUIN Last Admin: 07/07/21 09:54 Dose: 0.4 mg Documented by: Atorvastatin [Lipitor] 40 mg PO DAILY 06/28/21
--- NOTE | 2021-07-07 18:49 | PROVIDER PROGRESS NOTE ---
Subjective - General Admit Date: 06/28/21 Procedure Date: 06/28/21 Post Op Days: 9 Procedure Performed: Colostomy - Review of Systems Wound/Incisions: positive: Healing well General: positive: No symptoms All Other Systems: positive: Other (Due to his dementia, review of systems is obtained from his daughter) - Other Other Information/Narrative: Much more alert than he has been. Denies any pain. Unable to urinate so Bañuelos catheter was replaced. When it was finally replaced he had 1100 cc of output. He has still been having bowel movements via the ostomy and denies any discomfort. Urinalysis shows 2 separate organisms 1 is E. coli and the other was yet to be identified. Hoping for sensitivities in the morning. He has improved significantly and white count has normalized with Rocephin. Objective - Patient Data Reviewed Vital Signs: Yes Vital Signs: Vital Signs x48h Temp Pulse Resp BP Pulse Ox 07/07/21 15:50 36.4 C L 80 20 114/56 L 100 Intake & Output: Intake and Output Totals x24h 07/05/21 07/06/21 07/07/21 23:59 23:59 23:59 Intake Total 760 790 560 Output Total 4222 212 8038 Balance -1015 202 -640 - Lab Results Lab Results: 07/07/21 04:25 07/07/21 04:25 Other Lab Results: Lab Results x24hrs 07/07/21 07/07/21 Range/Units 04:25 04:25 WBC 8.5 (4.8-10.8) x10^3/uL RBC 3.24 L (4.70-6.10) 10^6/uL Hgb 10.6 L (14.0-18.0) g/dL Hct 32.2 L (42.0-52.0) % MCV 99.4 H (80.0-94.0) fL MCH 32.7 H (27.0-31.0) pg MCHC 32.9 (32.0-36.0) g/dL RDW 14.1 (12.0-15.0) % Plt Count 305 (130-450) 10^3/uL MPV 9.6 (7.4-11.4) fL Neut # (Auto) 5.0 (1.5-6.6) 10^3/uL Lymph # (Auto) 2.5 (1.5-3.5) 10^3/uL [place] # (Auto) 0.6 (0.0-1.0) 10^3/uL Eos # (Auto) 0.3 (0.0-0.7) 10^3/uL Baso # (Auto) 0.0 (0.0-0.1) 10^3/uL Absolute Nucleated RBC 0.00 x10^3/uL Nucleated RBC % 0.0 /100WBC Sodium 139 (135-145) mmol/L Potassium 3.6 (3.5-5.0) mmol/L Chloride 102 (101-111) mmol/L Carbon Dioxide 27 (21-32) mmol/L Anion Gap 10.0 (6-13) BUN 25 H (6-20) mg/dL Creatinine 1.1 (0.6-1.2) mg/dL Estimated GFR (MDRD) 64 L (>89) Glucose 96 (70-100) mg/dL Calcium 8.5 (8.5-10.3) mg/dL Total Bilirubin 0.6 (0.2-1.0) mg/dL AST 73 H (10-42) IU/L ALT 91 H (10-60) IU/L Alkaline Phosphatase 32 L (42-121) IU/L Total Protein 6.2 L (6.7-8.2) g/dL Albumin 2.8 L (3.2-5.5) g/dL Globulin 3.4 (2.1-4.2) g/dL Albumin/Globulin Ratio 0.8 L (1.0-2.2) - Current Medications Current Medications: Current Medications Generic Name Dose Route Start Last Admin Trade Name Freq PRN Reason Stop Dose Admin Aspirin 81 mg 06/30/21 10:00 07/07/21 09:54 Aspirin Chew 81 Mg Tablet PO 81 mg DAILY JUAQUIN Administration Enoxaparin Sodium 40 mg 06/30/21 09:00 07/07/21 09:54 Enoxaparin 40 Mg/0.4 Ml Syringe SUBQ 40 mg DAILY JUAQUIN Administration Hydromorphone HCl 0.5 mg 06/28/21 22:00 06/30/21 20:38 Hydromorphone 0.5 Mg/0.5 Ml Syringe IVP 0.2 mg Q2H PRN Administration PAIN Oxycodone HCl 5 mg 07/01/21 10:19 07/02/21 08:17 Oxycodone 5 Mg Tablet PO 5 mg Q4HR PRN Administration PAIN Pantoprazole Sodium 40 mg 07/01/21 07:00 07/07/21 06:34 Pantoprazole 40 Mg Tablet PO 40 mg QDAC JUAQUIN Administration Saccharomyces Boulardii 250 mg 07/05/21 17:00 07/07/21 17:20 Saccharomyces Boulardii 250 Mg Capsule PO 250 mg BIDWM JUAQUIN Administration Tamsulosin HCl 0.4 mg 07/05/21 21:00 07/07/21 09:54 Tamsulosin 0.4 Mg Capsule PO 0.4 mg BID JUAQUIN Administration - Physical Exam Wound/Incisions: positive: Healing well General Appearance: positive: No acute distress, Alert Eyes Bilateral: positive: Normal inspection, PERRL ENT: positive: ENT inspection nml Neck: positive: Nml inspection Respiratory: positive: Chest non-tender, No respiratory distress Cardiovascular: positive: Regular rate & rhythm Abdomen: positive: Nml bowel sounds, Other (Ostomy viable and working and dressed) Neurologic/Psychiatric: positive: Disoriented to time ABX Reporting Has patient been on IV antibiotics over the past 48 hours?: Yes Impression/Plan - Problem List Problem List: 1.Sigmoid volvulus with bowel obstruction. Resolved. His ostomy is functioning and his daughter has received teaching. [facility] has been set up once he is discharged. 2.Acute UTI and urinary retention. We will leave the Bañuelos catheter in place and let him follow-up with Dr. Nguyen for referral to urology.He will need 2 full weeks of antibiotics since the Bañuelos catheter was placed in the presence of a infection. Once we have sensitivities, we will plan to discharge in the a.m.
[2021-07-08 05:09] LABS: BASOPHILS % (AUTO) 0.3 %; EOSINOPHILS # (AUTO) 0.3 10^3/uL (0.0-0.7); HCT - HEMATOCRIT 34.5 % (42.0-52.0); HGB - HEMOGLOBIN 11.1 g/dL (14.0-18.0); LYMPHOCYTES # (AUTO) 2.5 10^3/uL (1.5-3.5); LYMPHOCYTES % (AUTO) 34.6 %; MEAN CORPUSCULAR HEMOGLOBIN 32.6 pg (27.0-31.0); MEAN CORPUSCULAR HGB CONC 32.2 g/dL (32.0-36.0); MEAN CORPUSCULAR VOLUME 101.5 fL (80.0-94.0); MEAN PLATELET VOLUME 9.4 fL (7.4-11.4); MONOCYTES # (AUTO) 0.6 10^3/uL (0.0-1.0); MONOCYTES % (AUTO) 8.3 %; NEUTROPHILS # (AUTO) 3.8 10^3/uL (1.5-6.6); NEUTROPHILS % (AUTO) 51.4 %; PLT - PLATELET COUNT 328 10^3/uL (130-450); RED CELL DISTRIBUTION WIDTH 14.4 % (12.0-15.0); WHITE BLOOD COUNT 7.3 x10^3/uL (4.8-10.8)
[2021-07-08 05:21] LABS: ALBUMIN 3.1 g/dL (3.2-5.5); ALBUMIN/GLOBULIN RATIO 0.8 (1.0-2.2); BILIRUBIN,TOTAL 0.6 mg/dL (0.2-1.0); CALCIUM 8.9 mg/dL (8.5-10.3); POTASSIUM 3.9 mmol/L (3.5-5.0); TOTAL PROTEIN 6.9 g/dL (6.7-8.2)
[2021-07-08] MEDS: PANTOPRAZOLE 40 MG TABLET PO SCH (05:52)
[2021-07-08] MEDS: SACCHAROMYCES BOULARDII 250 MG CAPSULE PO SCH (08:45)
[2021-07-08] MEDS: TAMSULOSIN 0.4 MG CAPSULE PO SCH (08:47)
[2021-07-08] MEDS: ASPIRIN CHEW 81 MG TABLET PO SCH (08:47)
[2021-07-08] MEDS: ENOXAPARIN 40 MG/0.4 ML SYRINGE SUBQ SCH (08:47)
[2021-07-08] MEDS ORDERED: SODIUM CHLORIDE FLUSH 0.9% 10 ML SYRINGE IVP PRN (08:54)
[2021-07-08] MEDS ORDERED: SODIUM CHLORIDE FLUSH 0.9% 10 ML SYRINGE IVP SCH (09:00)
[2021-07-08 16:25] VITALS: BP 111/52
--- NOTE | 2021-07-08 16:27 | Discharge Plan ---
Discharge Plan Problem Reviewed?: Yes Disposition: Home, Self Care Condition: Poor Prescriptions: cefUROXime axetiL [Ceftin] 500 mg PO BID #20 tablet Tamsulosin [Flomax] 0.4 mg PO DAILY #30 cap Saccharomyces Boulardii [Florastor] 250 mg PO BIDWM #20 cap Diet: Regular Activity Restrictions: Activity as Tolerated Shower Restrictions: No (fall precaution) Instruction Topics: ED Catheter Care Bañuelos, Colostomy Pouch Change, Colostomy, Ileostomy Stoma Care, Cefuroxime tablets, Tamsulosin capsules, UTI Health Concerns: Bañuelos catheter and ostomy care, UTI, urinary retention Plan of Treatment: you are arranged home health for your Bañuelos catheter and ostomy care. your daughter was also educated for the care. You may followup with your surgeon as out-pt. You are prescribed Flomax for your urinary retention. you may followup with your PCP in one week and followup with urologist as out-pt. you are prescribed antibiotics to finish the treatment course for your UTI. Care Goals: Stabilization and improvement of your medical conditions Additional Instructions or Follow Up instructions: You may follow-up with your primary care in 1 week, follow-up with urologist as outpatient, And follow-up with GI surgeon as outpatient. Should your symptoms return or worsen, you may present to ER or call 911 for help No Smoking: If you smoke, Please STOP! Call for help. Follow-up with: Eliseo Nguyen MD [Primary Care Provider] -
--- NOTE | 2021-07-08 17:24 | DISCHARGE SUMMARY ---
"Discharge Summary Admit Date: 06/27/21 Discharge Date: 07/08/21 Discharging Provider: Corey Condition at Discharge: Poor Discharge Disposition: 01 Home, Self Care - DIAGNOSES Admission Diagnoses: Sigmoid volvulus Discharge Diagnoses with Status of Each Condition: Sigmoid volvulus-resolved S/P Dania procedure with sigmoid colectomy and end colostomy UTI Urinary Retention - CONSULTS | PROCEDURES Consultations: Hospitalist - HOSPITAL COURSE Hospital Course: This 80 yo male was admitted with sigmoid volvulus and was taken to surgery by Dr Randle, who resected the sigmoid and did a Dania procedure with end colostomy. Postop course was notable for weakness requiring Physical therapy and repeated episodes of urinary retention requiring Bañuelos catheter placement. He had a UTI develop growing E coli and Klebsiella and was discharged home on Ceftin. - ALLERGIES Allergies/Adverse Reactions: Allergies Allergy/AdvReac Type Severity Reaction Status Date / Time No Known Drug Allergies Allergy Verified 06/28/21 15:08 - MEDICATIONS Home Medications: Ambulatory Orders Medication Instructions Recorded Confirmed Atorvastatin [Lipitor] 40 mg PO DAILY 06/28/21 06/28/21 Saccharomyces Boulardii [Florastor] 250 mg PO BIDWM #20 cap 07/08/21 Tamsulosin [Flomax] 0.4 mg PO DAILY #30 cap 07/08/21 cefUROXime axetiL [Ceftin] 500 mg PO BID #40 tablet 07/08/21 - PHYSICAL EXAM AT DISCHARGE Eyes Bilateral: positive: Normal inspection Respiratory: positive: No respiratory distress Cardiovascular: positive: Regular rate & rhythm Abdomen: positive: Non-tender, Other (Stoma in good condition with good output) Physical Exam Other/Comments: Midline wound healing well- gavin d/c'd - LABS Result Diagrams: 07/08/21 04:36 07/08/21 04:36 - FOLLOW UP Follow Up: Patient will follow up with his PCP in [place] and Urologist there - TIME SPENT Time Spent in Discharge (Minutes): 30"
== END 2021-07-08 17:30 | disposition home or self-care (01) | DRG 330 ==
LOC: EDUNIT# → ED 15:00 → SUPCPDRO 15:00 → ICU 18:02 → SDS 18:02 → ICU 22:00 → UNDOADMIN 22:00 → MS3 07-01 22:14 → ICU 07-01 22:14 → UNDODISIN 07-08 17:30
PROVIDERS: ADMIT Surgery; ATTEND Surgery
PROC: 0D1M0Z4 Bypass Descending Colon to Cutaneous, Open Approach (ICD-10-PCS; 2021-06-28)
PROC: 0DTN0ZZ Resection of Sigmoid Colon, Open Approach (ICD-10-PCS; principal; 2021-06-28 19:30)
DX: K56.2 Volvulus (principal); G91.9 Hydrocephalus, unspecified; F03.90 Unspecified dementia, unspecified severity, without behavioral disturbance, psychotic disturbance, mood disturbance, and anxiety; I10 Essential (primary) hypertension; Z20.822 Contact with and (suspected) exposure to COVID-19; N39.0 Urinary tract infection, site not specified; I69.259 Hemiplegia and hemiparesis following other nontraumatic intracranial hemorrhage affecting unspecified side; B96.20 Unspecified Escherichia coli [E. coli] as the cause of diseases classified elsewhere; B96.1 Klebsiella pneumoniae [K. pneumoniae] as the cause of diseases classified elsewhere; I48.0 Paroxysmal atrial fibrillation; E11.9 Type 2 diabetes mellitus without complications; E78.00 Pure hypercholesterolemia, unspecified; N40.1 Benign prostatic hyperplasia with lower urinary tract symptoms; R33.9 Retention of urine, unspecified; R35.0 Frequency of micturition; R39.15 Urgency of urination; R32 Unspecified urinary incontinence; R53.81 Other malaise; H54.7 Unspecified visual loss; Z66 Do not resuscitate; Z96.89 Presence of other specified functional implants; Z79.899 Other long term (current) drug therapy; Z87.891 Personal history of nicotine dependence
CPT/HCPCS: 36415; 51702; 51798; 70450; 71045; 74177; 76705; 80053; 81001; 81003; 82607; 82746; 83036; 83690; 84484; 85025; 87040; 87077; 87086; 87150; 87181; 87631; 93005; 93306; 97161; 97530; 99285; A6250; A9270; J0131; J0330; J1170; J1650; J7120; Q9967; 0202U; 80048

== ENCOUNTER 2021-07-08 17:39 | Outpatient (CLI) | payer MEDICARE, OTHER | END 2021-07-08 17:40 | disposition home or self-care (01) | LOC: EMS 17:39 | PROVIDERS: ATTEND Nurse Practitioner Gerontology | DX: Z74.01 Bed confinement status (principal); K56.609 Unspecified intestinal obstruction, unspecified as to partial versus complete obstruction; R33.9 Retention of urine, unspecified; N39.0 Urinary tract infection, site not specified; F03.90 Unspecified dementia, unspecified severity, without behavioral disturbance, psychotic disturbance, mood disturbance, and anxiety | CPT/HCPCS: A0425; A0428 ==

== ENCOUNTER 2021-07-30 11:08 | Outpatient (CLI) | payer MEDICARE, OTHER | END 2021-07-30 11:09 | disposition critical access hospital (66) | LOC: EMS 11:08 | DX: R31.0 Gross hematuria (principal) | CPT/HCPCS: A0425; A0429 ==

== ENCOUNTER 2021-07-30 11:34 | Emergency (ER) | payer MEDICARE, OTHER ==
--- NOTE | 2021-07-30 12:00 | ED Physician Documentation ---
History of Present Illness - Stated complaint Stated Complaint: CATH ISSUES - Chief complaint Chief Complaint: General - Additonal information Additional information: 81-year-old male who has severe dementia and is unable to participate in the history is brought to the emergency department via EMS for evaluation of possible hematuria. He was discharged from this hospital on 08 July after lengthy hospitalization for sigmoid volvulus as well as urinary tract infection. Post op course was notable for prolonged weakness requiring PT as well as recurrent urinary retention and UTI requiring a indwelling rai upon dc Per EMS, the care provider noted hematuria this a.m. contacted the PCP who advised ED eval. Review of Systems Unable to obtain: Dementia PD PAST MEDICAL HISTORY - Past Medical History Cardiovascular: Hypertension, High cholesterol Respiratory: None Neuro: Dementia, CVA Endocrine/Autoimmune: None GI: None : Benign prostate hypertrophy, Retention HEENT: Chronic vision loss, Chronic hearing loss Psych: Anxiety Musculoskeletal: Osteoarthritis Derm: None - Past Surgical History Past Surgical History: No Neuro: Craniotomy, [employer] shunt - Present Medications Home Medications: Ambulatory Orders Medication Instructions Recorded Confirmed Atorvastatin [Lipitor] 40 mg PO DAILY 06/28/21 06/28/21 Saccharomyces Boulardii [Florastor] 250 mg PO BIDWM #20 cap 07/08/21 Tamsulosin [Flomax] 0.4 mg PO DAILY #30 cap 07/08/21 cefUROXime axetiL [Ceftin] 500 mg PO BID #40 tablet 07/08/21 Cefpodoxime Proxetil [Vantin] 100 mg PO Q12H #20 tablet 07/30/21 - Allergies Allergies/Adverse Reactions: Allergies Allergy/AdvReac Type Severity Reaction Status Date / Time No Known Drug Allergies Allergy Verified 07/30/21 11:46 - Social History Does the pt smoke?: No Smoking Status: Former smoker Does the pt drink ETOH?: No Does the pt have substance abuse?: No - Immunizations Immunizations are current?: Yes - POLST Patient has POLST: No POLST Status: DNR PD ED PE EXPANDED - General General: Alert, No acute distress, Well developed/nourished, Other (elderly male, chronically bed bound, outerwise well appearing) - Cardiac Cardiac: Regular Rate, Radial strong equal, Pedal strong equal, Cap refill < 2 sec - Respiratory Respiratory: Clear to ausultation alfred. No: Distress, Labored - Abdomen Abdomen: Normal Bowel sounds. No: Tender to palpation - Male Male : Other (Indwelling Rai catheter patent draining yellow urine with moderate sediment. No obvious hematuria noted no bleeding from the urethra seen.) - Derm Derm: Normal color, Warm and dry. No: Rash - Neuro Neuro: Confused, CNII-XII intact - GCS Eye Opening: Spontaneous Motor: Obeys Commands Verbal: Confused Total: 14 Results - Vitals Vitals: Vital Signs - 24 hr 07/30/21 07/30/21 11:42 14:29 Temperature 36.3 C L Heart Rate 77 80 Respiratory 16 18 Rate Blood Pressure 113/59 L 138/59 H O2 Saturation 99 99 Oxygen O2 Source Room air - Labs Labs: Laboratory Tests 07/30/21 07/30/21 07/30/21 12:11 12:11 12:11 WBC 12.1 H RBC 3.59 L Hgb 12.0 L Hct 36.5 L MCV 101.7 H MCH 33.4 H MCHC 32.9 RDW 14.6 Plt Count 263 MPV 9.0 Neut # (Auto) 8.4 H Lymph # (Auto) 2.5 Saline # (Auto) 1.0 Eos # (Auto) 0.2 Baso # (Auto) 0.0 Absolute Nucleated RBC 0.00 Nucleated RBC % 0.0 Sodium 140 Potassium 4.3 Chloride 105 Carbon Dioxide 28 Anion Gap 7.0 BUN 25 H Creatinine 1.0 Estimated GFR (MDRD) 71 L Glucose 93 Lactic Acid 1.6 Calcium 9.0 Total Bilirubin 0.7 AST 24 ALT 23 Alkaline Phosphatase 34 L Total Protein 7.3 Albumin 3.2 Globulin 4.1 Albumin/Globulin Ratio 0.8 L Urine Color Urine Clarity Urine pH Ur Specific [place] Urine Protein Urine Glucose (UA) Urine Ketones Urine Occult Blood Urine Nitrite Urine Bilirubin Urine Urobilinogen Ur Leukocyte Esterase Urine RBC Urine WBC Ur Squamous Epith Cells Urine Bacteria Urine Culture Comments 07/30/21 14:50 WBC RBC Hgb Hct MCV MCH MCHC RDW Plt Count MPV Neut # (Auto) Lymph # (Auto) Saline # (Auto) Eos # (Auto) Baso # (Auto) Absolute Nucleated RBC Nucleated RBC % Sodium Potassium Chloride Carbon Dioxide Anion Gap BUN Creatinine Estimated GFR (MDRD) Glucose Lactic Acid Calcium Total Bilirubin AST ALT Alkaline Phosphatase Total Protein Albumin Globulin Albumin/Globulin Ratio Urine Color YELLOW Urine Clarity CLOUDY Urine pH 5.5 Ur Specific [place] 1.025 Urine Protein NEGATIVE Urine Glucose (UA) NEGATIVE Urine Ketones NEGATIVE Urine Occult Blood SMALL H Urine Nitrite POSITIVE H Urine Bilirubin NEGATIVE Urine Urobilinogen 0.2 (NORMAL) Ur Leukocyte Esterase MODERATE H Urine RBC 6-10 H Urine WBC >25 H Ur Squamous Epith Cells RARE Squamous Urine Bacteria Moderate H Urine Culture Comments INDICATED PD MEDICAL DECISION MAKING - ED course Complexity details: reviewed results, re-evaluated patient, d/w patient, d/w family ED course: 81-year-old male presents the emergency department after his caregivers found that the Rai catheter had sediment in it and also had some mild hematuria. He was discharged from the hospital on 14 July after a lengthy stay for sigmoid volvulus in which he did undergo operative repair. He also unfortunately had urinary obstruction and required placement of Rai catheter which remains in place. He did have cystitis and was discharged on antibiotics. He presents here very well-appearing. In discussion with the family he is eating well and has not had any fevers or vomiting. Their only concern was that of the Rai. His abdominal exam was rather benign with no tenderness elicited. Should be noted this gentleman is very demented and unable to participate in history. Screening labs show a very mild leukocytosis. There was no lactate elevation. no fevers. No elicited abdominal pain therefore a CT of the abdomen was deferred. Given the concerns for the Rai catheter sediment and hematuria the catheter was exchanged and urine was sent to the lab for analysis. UA is consistent with infection though this can be difficult to interpret in the setting of chronic Rai catheterization. Last urine culture in the hospital grew a pansensitive E. coli and Klebsiella. Therefore I will start the patient on Cefpodoxime twice daily for 10 days. The family is going to follow-up with urology next week. They missed the outpatient appointment because of transportation issues. A prescription for Cefpodoxime has been sent to [facility] in [place]. Emergent return precautions were discussed on the phone with his and his caregiver Departure - Departure Disposition: 01 Home, Self Care Clinical Impression: Chronic indwelling Rai catheter UTI (urinary tract infection) Qualifiers: Urinary tract infection type: catheter-associated UTI Indwelling urinary catheter type: indwelling urethral catheter Encounter type: initial encounter Qualified Code(s): T83.511A - Infection and inflammatory reaction due to indwelling urethral catheter, initial encounter; N39.0 - Urinary tract infection, site not specified Condition: Stable Record reviewed to determine appropriate education?: Yes Prescriptions: Cefpodoxime Proxetil [Vantin] 100 mg PO Q12H #20 tablet Comments: Alan was seen in the emergency department today for concerns of sediment in his Rai catheter as well as some blood. His Rai catheter was exchanged today for a new 1. The urine today suggests persistence of a urinary tract infection. A prescription for an antibiotic called Cefpodoxime has been sent to the [facility] in [place]. Please fill it and have him take twice daily for the next 10 days. It is imperative that he have close follow-up with his urologist. If at any point you have concerns that he develops fevers, has uncontrolled abdominal pain, fevers or vomiting then please return immediately to the ER.
[2021-07-30 12:17] LABS: BASOPHILS % (AUTO) 0.1 %; EOSINOPHILS # (AUTO) 0.2 10^3/uL (0.0-0.7); EOSINOPHILS % (AUTO) 1.7 %; HCT - HEMATOCRIT 36.5 % (42.0-52.0); LYMPHOCYTES # (AUTO) 2.5 10^3/uL (1.5-3.5); LYMPHOCYTES % (AUTO) 20.5 %; MEAN CORPUSCULAR HEMOGLOBIN 33.4 pg (27.0-31.0); MEAN CORPUSCULAR HGB CONC 32.9 g/dL (32.0-36.0); MEAN CORPUSCULAR VOLUME 101.7 fL (80.0-94.0); MONOCYTES % (AUTO) 7.9 %; NEUTROPHILS # (AUTO) 8.4 10^3/uL (1.5-6.6); NEUTROPHILS % (AUTO) 69.5 %; PLT - PLATELET COUNT 263 10^3/uL (130-450); RED BLOOD COUNT 3.59 10^6/uL (4.70-6.10); RED CELL DISTRIBUTION WIDTH 14.6 % (12.0-15.0); WHITE BLOOD COUNT 12.1 x10^3/uL (4.8-10.8)
[2021-07-30 12:35] LABS: ALBUMIN 3.2 g/dL (3.2-5.5); ALBUMIN/GLOBULIN RATIO 0.8 (1.0-2.2); BILIRUBIN,TOTAL 0.7 mg/dL (0.2-1.0); POTASSIUM 4.3 mmol/L (3.5-5.0); TOTAL PROTEIN 7.3 g/dL (6.7-8.2)
[2021-07-30 14:57] LABS: BILIRUBIN,URINE NEGATIVE (NEGATIVE); GLUCOSE, URINE (UA) NEGATIVE (NEGATIVE); KETONES,URINE (UA) NEGATIVE (NEGATIVE); LEUKOCYTE ESTERASE, URINE MODERATE (NEGATIVE); NITRITE,URINE POSITIVE (NEGATIVE); OCCULT BLOOD,URINE SMALL (NEGATIVE); PH,URINE 5.5 PH (5.0-7.5); PROTEIN,URINE NEGATIVE (NEGATIVE); UROBILINOGEN,URINE 0.2 (NORMAL) E.U./dL (NORMAL)
[2021-07-30 15:08] LABS: BACTERIA,URINE Moderate /HPF (None Seen); CLARITY,URINE CLOUDY (CLEAR); SQUAMOUS EPITHELIAL CELL,UR RARE Squamous (<= Few); WBC,URINE >25 /HPF (0-3)
[2021-07-30 15:56] VITALS: BP 107/71
== END 2021-07-30 16:00 | disposition home or self-care (01) ==
LOC: EDUNIT# → ED 11:34
DX: T83.511A Infection and inflammatory reaction due to indwelling urethral catheter, initial encounter (principal); N39.0 Urinary tract infection, site not specified; Y84.6 Urinary catheterization as the cause of abnormal reaction of the patient, or of later complication, without mention of misadventure at the time of the procedure; F03.90 Unspecified dementia, unspecified severity, without behavioral disturbance, psychotic disturbance, mood disturbance, and anxiety; N40.1 Benign prostatic hyperplasia with lower urinary tract symptoms; R33.8 Other retention of urine; I10 Essential (primary) hypertension; Z87.891 Personal history of nicotine dependence
CPT/HCPCS: 36415; 51702; 80053; 81001; 83605; 85025; 87040; 87086; 87181; 99281; 99283

== ENCOUNTER 2021-07-30 16:00 | Outpatient (CLI) | payer MEDICARE, OTHER | END 2021-07-30 16:01 | disposition home or self-care (01) | LOC: EMS 16:00 | PROVIDERS: ATTEND Registered Nurse | DX: Z74.01 Bed confinement status (principal) | CPT/HCPCS: A0425; A0428 ==